=== PATIENT | female | born 1955 | race Caucasian/White ===

== ENCOUNTER → 2016-12-05 | Outpatient (CLI) | payer BC ==
[~2016-12-05] MED LIST: ALBU18002 INH; ALBUTEROL NEB NEB; AMINOPHYLLINE 25 MG/ML 20ML VIAL IV ONE; ANTICRE6; ASPEC81 PO; ATOR10TA88 PO; BCTCR/30 EXT; CLON0.5T3 PO; CLR/5 PO; GLC/500 PO; HYDR-5688 PO; INFUSION IV; LEVA45AE INH; MOME6000 NAE; MONT1TAB3 PO; NAPR1TAB9 PO; OMEP40CA PO; ONDA4TAB46 PO; QVRINH80 INH; REGADENOSON 0.4 MG/5 ML SYR ONE; SYMIN160 INH; [UNRECOGNIZED DRUG - OTHER] IV; [UNRECOGNIZED DRUG - OTHER] NAE
--- NOTE | 2016-12-06 09:52 | MYOCARDIAL PERFUSION SCAN ---
ONE-DAY NUCLEAR MEDICINE TECHNETIUM-99M CARDIOLITE MYOCARDIAL PERFUSION SCAN CLINICAL HISTORY: The patient has an abnormal baseline EKG. This stress test is being performed as a preoperative evaluation. COMPARISON: None. TECHNIQUE: For the stress portion of the study, 32.8 mCi of Technetium-99m Cardiolite IV was injected at 9:45 a.m. on 12/05/2015. Thirty minutes following the injection, imaging of the heart was performed in multiple projection. For the rest portion of the study, 10.6 mCi of Technetium-99m Cardiolite was injected IV at 7:45 a.m. One hour following the injection, imaging of the heart was performed in the same projections. For the stress portion of the study, 0.4 mg of Lexiscan was injected intravenously as per protocol. The patient tolerated the procedure well. She did receive 125 mg of intravenous aminophylline to reverse her complaints of a headache. There were no EKG changes. The patient remained hemodynamically stable throughout the study. FINDINGS: The short axis, vertical long axis, and horizontal long axis images were reviewed in detail. There is normal myocardial perfusion at both stress and rest, thus excluding a prior myocardial infarction or a stress induced myocardial ischemia. The left ventricle demonstrates normal systolic function without wall motion abnormalities. An estimated left ventricular ejection fraction is 70%. CONCLUSIONS: 1. No scintigraphic evidence of a myocardial infarction or myocardial ischemia. 2. No Lexiscan induced chest pain. 3. No EKG changes. 4. Normal left ventricular systolic function with an ejection fraction of 70% and no wall motion abnormalities.
== END | disposition home or self-care (01) ==
LOC: C.NUCL 07:01
PROVIDERS: ATTEND Internal Medicine Cardiovascular Disease
DX: Z01.818 Encounter for other preprocedural examination (principal)

== ENCOUNTER 2016-12-10 06:33 | Inpatient (IN) | payer BC ==
[2016-11-13 14:42] VITALS: BMI 24.0
--- NOTE | 2016-11-13 15:38 | PAT Medication Instructions ---
Service Date Nov 13, 2016. Current Home Medication List Albuterol Sulfate (Proair Respiclick), 2 PUFF INH Q4 PRN for SOB/Wheezing Atorvastatin (Lipitor), 10 MG PO QAM Beclomethasone Dip (Qvar), 2 PUFF INH BID PRN for PRN Budesonide/Formoterol Fumarate (Symbicort 160/4.5 Inhaler ), 2 PUFFS INH BID Clonazepam (Klonopin), 0.25 MG PO UD PRN for VERTIGO Desloratadine (Clarinex), 10 MG PO QAM Levalbuterol Tartrate (Levalbuterol Tartrate Hfa), 2 PUFF INH Q4 PRN for SOB/ Wheezing Metformin Hcl (Glucophage), 500 MG PO BID Mometasone Furoate (Nasal) (Mometasone Furoate), 2 SPRAY BRITNEY QAM Montelukast Sodium (Singulair), 10 MG PO QAM Mupirocin 2% (Bactroban 2%), 1 APPLN EXT UD Naproxen (Aleve), 220 MG PO Q12 Omeprazole (Prilosec), 40 MG PO QAM Ondansetron Hcl (Zofran), 4 MG PO Q4 PRN for Nausea [Albuterol Neb], 1 DOSE NEB Q4 PRN for SOB/Wheezing [Antibiotic] [C-Mariza Geranium Oil], 5 DROP BRITNEY BID [Imuno G Infusion], 1 DOSE IV Q4WK Medication Instructions For Your Scheduled Surgery - Check with surgeon for instructions: Naproxen (Aleve), 220 MG PO Q12 - Check with surgeon/prescribing doctor for instructions: [Imuno G Infusion], 1 DOSE IV Q4WK - Hold the following medications 24 hours prior to surgery: Mupirocin 2% (Bactroban 2%), 1 APPLN EXT UD - Hold the following medications 48 hours prior to surgery: Metformin Hcl (Glucophage), 500 MG PO BID - Hold the following medications the morning of surgery: Montelukast Sodium (Singulair), 10 MG PO QAM Desloratadine (Clarinex), 10 MG PO QAM - Take the following medications the morning of surgery with a sip of water: [Albuterol Neb], 1 DOSE NEB Q4 PRN for SOB/Wheezing Ondansetron Hcl (Zofran), 4 MG PO Q4 PRN for Nausea Omeprazole (Prilosec), 40 MG PO QAM Mometasone Furoate (Nasal) (Mometasone Furoate), 2 SPRAY BRITNEY QAM Levalbuterol Tartrate (Levalbuterol Tartrate Hfa), 2 PUFF INH Q4 PRN for SOB/ Wheezing Clonazepam (Klonopin), 0.25 MG PO UD PRN for VERTIGO Budesonide/Formoterol Fumarate (Symbicort 160/4.5 Inhaler ), 2 PUFFS INH BID Beclomethasone Dip (Qvar), 2 PUFF INH BID PRN for PRN Atorvastatin (Lipitor), 10 MG PO QAM Albuterol Sulfate (Proair Respiclick), 2 PUFF INH Q4 PRN for SOB/Wheezing ( bring with you to hospital morning of surgery) [C-Mariza Geranium Oil], 5 DROP BRITNEY BID - Take the following medications as scheduled the night before surgery: [Albuterol Neb], 1 DOSE NEB Q4 PRN for SOB/Wheezing Ondansetron Hcl (Zofran), 4 MG PO Q4 PRN for Nausea Levalbuterol Tartrate (Levalbuterol Tartrate Hfa), 2 PUFF INH Q4 PRN for SOB/ Wheezing Clonazepam (Klonopin), 0.25 MG PO UD PRN for VERTIGO Budesonide/Formoterol Fumarate (Symbicort 160/4.5 Inhaler ), 2 PUFFS INH BID Beclomethasone Dip (Qvar), 2 PUFF INH BID PRN for PRN Albuterol Sulfate (Proair Respiclick), 2 PUFF INH Q4 PRN for SOB/Wheezing [C-Mariza Geranium Oil], 5 DROP BRITNEY BID If you have any questions please call us at [phone] (Lamar Moise PA-C) or [phone] or [phone]
[2016-11-13 16:38] LABS: MANUAL MICROSCOPIC REQUIRED? NO; REVIEW REQ? NO; URINE APPEARANCE CLEAR (CLEAR); URINE BILIRUBIN NEG (NEG); URINE COLOR YELLOW; URINE NITRITE NEG (NEG); URINE PH 5.5 (4.5-7.5); UROBILINOGEN NEG (NEG); ZZUR CULT IF INDIC CLEAN CATCH NO
--- NOTE | 2016-11-13 16:40 | DIAGNOSTIC IMAGING REPORT ---
CHEST PREADMISSION(PA/LAT) CLINICAL HISTORY: Preoperative evaluation. COMPARISON STUDY: No previous studies for comparison. FINDINGS: Lung volumes are normal. Lungs are clear. There is no pneumothorax or pleural effusion. Cardiac size is normal. Mediastinal contours are normal. There is no evidence of pulmonary edema. There are cholecystectomy clips. Incidental note is made of a healed left clavicular fracture. IMPRESSION: No acute cardiopulmonary findings. Electronically signed by: Juan Pablo Brambila M.D. 11/13/2016 4:39 PM
[2016-11-13 16:50] LABS: PARTIAL THROMBOPLASTIN RATIO 1.1; PROTHROMBIN TIME (PATIENT) 10.9 SECONDS (9.0-12.0)
[2016-11-14 06:00] LABS: ESTIMATED AVERAGE GLUCOSE 128 mg/dl; HA1C FLAG Normal (Normal)
--- NOTE | 2016-12-07 15:07 | HISTORY & PHYSICAL EXAMINATION ---
DATE OF ADMISSION: 12/10/2016 CHIEF COMPLAINT: Left hip pain. HISTORY OF PRESENT ILLNESS: Renetta is a 61-year-old female with a multiple-year history of pain in her left hip. The patient rates her pain an 8/10. She has pain with her daily activities. She has limited standing and walking tolerance. Pain is worse with weightbearing. The patient has had injections and exercise program without relief. She has failed conservative treatment and is scheduled for left hip replacement. PAST MEDICAL HISTORY: Hypertension, hypercholesterolemia, Meniere's disease, asthma, chronic sinusitis, immunodeficiency disorder, IGG, diabetes. She denies heart disease or DVT. PAST SURGICAL HISTORY: Bunionectomy, cochlear implant, sinus usual reconstruction. Lymphadenectomy, hysterectomy, right knee surgery, cholecystectomy, , ORIF tib-fib, and tonsillectomy. SOCIAL HISTORY: The patient denies alcohol or tobacco use. She lives in a single story home. She is and retired. FAMILY HISTORY: Negative for DVT. MEDICATIONS: Geranium oil 5 drops nasally twice daily, clonazepam 0.5 mg 1/2 tablet, Zofran 4 mg p.r.n., Mupirocin 2% ointment nostrils daily, atorvastatin 10 mg daily, metformin 500 mg 2 times daily, immunoglobulin 4 fusions q. 4 weeks, montelukast 10 mg daily, loratadine 5 mg, Symbicort 160/4.5 two puffs daily, omeprazole 40 mg, levalbuterol 0.63 mg, QVAR 40 mcg, Xopenex HFA 45 mcg, Aleve p.r.n. ALLERGIES: DEMEROL, NUBAIN, PERCOCET, TRAMADOL, MACROBID, BACTRIM. REVIEW OF SYSTEMS: See HPI. Ten other systems reviewed. Also, positive for current sinusitis being treated with antibiotic. Ten other systems reviewed, all negative. PHYSICAL EXAMINATION: VITAL SIGNS: Height 5 foot 8, weight 158 pounds, BMI is 24. GENERAL: This is a well-developed, well-nourished female who is alert and oriented x3. Mood and affect are appropriate. HEAD, EYES, EARS, NOSE, AND THROAT: Normocephalic, atraumatic. Mucous membranes are moist and intact. NECK: Supple without lymphadenopathy. HEART: Regular rate and rhythm without murmurs, rubs or gallops. LUNGS: Clear to auscultation without wheezes or rhonchi. ABDOMEN: Soft and nontender. Bowel sounds are equal and active. EXTREMITIES: No ecchymosis, redness or warmth. Thigh and calf are soft and nontender. Log roll of the hip reproduces pain in the groin. She is neurovascularly intact with +5/5 strength. X-RAY EXAMINATION: AP and lateral views show joint space narrowing and osteophyte formation. IMPRESSION: Degenerative joint disease, left hip. PLAN: The patient will be admitted for a left total hip arthroplasty. We will plan on aspirin for DVT prophylaxis. PCP is Dr. Garcia. She is having [facility] for home physical therapy.
[2016-12-10] VITALS (10 sets, daily range): BP systolic 110–178; BP diastolic 58–89; PULSE 56–70; TEMP 36.2–36.6; O2SAT 92–100; Ht 172.7 cm; Wt 71.8 kg
[~2016-12-10] VITALS: Ht 172.7 cm; Wt 71.8 kg
[2016-12-10] MEDS: TRANEXAMIC ACID INJ 1,000 MG in SODIUM CHLORIDE 0.9% 100ML 100 ML IV SCH ×2 (06:00→06:30)
[~2016-12-10 06:33] MED LIST changes: -AMINOPHYLLINE 25 MG/ML 20ML VIAL IV ONE; -ASPEC81 PO; +BUPIVACAINE 0.5 % 5 MG/1 ML PF 10ML VIAL ONE; +CEFAZOLIN 2000 MG/60 ML D5W 60 ML IV SCH; +CeleBREX 200 MG CAP PO SCH; +DEXAMETHASONE 4 MG TAB PO SCH; +FAMOTIDINE 20 MG TAB PO SCH; +FENTANYL CITRATE INJ 50 MCG/1 ML 2 ML VIAL ONE; +GABAPENTIN 300 MG CAP PO SCH; -HYDR-5688 PO; +HYDROCODONE/ACETAMOPHEN 5/325MG TAB PO SCH; +LACTATED RINGER'S 1000ML IV SCH; +LACTATED RINGER'S 500 ML IV SCH; +LIDOCAINE HCL 2% 2 ML VIAL (20MG/ML) ONE; +METOCLOPRAMIDE HCL 10 MG TAB PO SCH; +MIDAZOLAM HCL 1 MG/ML 2ML VIAL ONE; +POLYMYXIN B SULFATE 100,000 UNITS in NSS 100ML IR SCH; +PROPOFOL IV EMULSION 10 MG/ML 20 ML VIAL IV ONE; -REGADENOSON 0.4 MG/5 ML SYR ONE; +ROCURONIUM BROMIDE 10 MG/ML 5 ML VIAL ONE; +ROPIVACAINE 5MG/ML 30 ML 150 MG, BUPIVACAINE/EPINEPHR 0.5% MPF 30 ML, KETOROLAC TROMETH... INFIL SCH; +SCOPOLAMINE 1.5 MG TDSY TD SCH; +SUCCINYLCHOLINE CHLORIDE 20 MG/ML 10 ML VIAL IV ONE; +VANCOMYCIN INJ 400 MG in NSS 100ML IR SCH
[2016-12-10] MEDS ORDERED: ORTHO JOINT ANESTHETIC ONE (06:56)
--- NOTE | 2016-12-10 06:59 | History & Physical Bridge Note ---
H&P Re-Evaluation Bridge Note: I have examined the patient, reviewed the History & Physical and in the interval since the performance of the History & Physical I have noted the following changes of clinical significance: No changes noted
[2016-12-10] MEDS ORDERED: ONDANSETRON INJ 2 MG/ML 2 ML VIAL ONE ×2 (08:39→08:46)
[2016-12-10] MEDS ORDERED: ATROPINE SULFATE 0.1 MG/ML 5ML SYR IV PRN (09:00)
[2016-12-10] MEDS ORDERED: ONDANSETRON INJ 2 MG/ML 2 ML VIAL IV PRN ×2 (09:00→10:00)
[2016-12-10] MEDS ORDERED: EpHEDrine SULFATE INJ 50 MG/ML AMP IV PRN (09:00)
[2016-12-10] MEDS ORDERED: HYDROmorphone INJ 1 MG/ML SYR IV PRN (09:00)
[2016-12-10] MEDS ORDERED: LABETALOL HCL IV 5 MG/ML 20ML IV PRN (09:00)
[2016-12-10] MEDS ORDERED: FENTANYL CITRATE INJ 50 MCG/1 ML 2 ML VIAL IV PRN (09:00)
[2016-12-10] MEDS ORDERED: POVIDONE-IODINE OP SOLN 30 ML BTL TOP ONE (09:40)
[2016-12-10] MEDS ORDERED: BACITRACIN 50000 UNIT VIAL IR ONE (09:40)
--- NOTE | 2016-12-10 09:47 | [facility] Post Operative Brief Note ---
Immediate Operative Summary Operative Date Dec 10, 2016. Pre-Operative Diagnosis Left Hip Degenerative Joint Disease Post-Operative Diagnosis Left Hip Degenerative Joint Disease Procedure(s) Performed Left Total Hip Arthroplasty Uncemented - Direct Anterior Approach Surgeon Dr. Dain Green Flue Dust Laborer Surgeon(s) Nicolas Wells PA-C Estimated Blood Loss 50ML Findings djd Specimens A. Left Femoral Head Complication(s) None Disposition Recovery Room / PACU
[2016-12-10] MEDS ORDERED: BISACODYL 10 MG SUPP PR PRN (10:00)
[2016-12-10] MEDS ORDERED: CLONAZEPAM 0.5 MG TAB PO PRN (10:00)
[2016-12-10] MEDS ORDERED: BECLOMETHASONE DIP HFA 80 MCG 8.7G INH INH PRN (10:00)
[2016-12-10] MEDS ORDERED: ALBUTEROL HFA INHALER 8.5 GM INH PRN (10:00)
[2016-12-10] MEDS ORDERED: MAGNESIUM HYDROXIDE SUSP 30 ML UDC PO PRN (10:00)
[2016-12-10] MEDS ORDERED: LEValbuterol HFA 15GM INHALER INH PRN (10:00)
[2016-12-10] MEDS ORDERED: DiphenhydrAMINE HCL 50 MG/ML VIAL IV PRN (10:00)
[2016-12-10] MEDS ORDERED: ALUMINUM/MAGNESIUM/SIMETH (MAALOX MAX) 30 ML UDC PO PRN (10:00)
[2016-12-10] MEDS ORDERED: ZOLPIDEM TARTRATE 5 MG TAB PO PRN (10:00)
[2016-12-10] MEDS ORDERED: METOCLOPRAMIDE HCL INJ 5 MG/ML 2 ML VIAL IV PRN (10:00)
[2016-12-10] MEDS ORDERED: SOD PHOSPHATE/SOD BIPHOSPHATE ENEMA 132 ML BTL PR PRN (10:00)
--- NOTE | 2016-12-10 10:41 | DIAGNOSTIC IMAGING REPORT ---
LEFT PELVIS/UNILATERAL HIP 1 VIEW CLINICAL HISTORY: Degenerative arthritis postoperative study COMPARISON STUDY: No previous studies for comparison. FINDINGS: There are postsurgical changes of a total left hip arthroplasty. The acetabular and femoral components appear well seated. Overlying surgical drain is evident. There is air in the soft tissues consistent with recent surgery IMPRESSION: Postsurgical changes of a total left hip arthroplasty. Electronically signed by: Alfonzo Vega M.D. 12/10/2016 10:39 AM Dictated Date/Time: 12/10/2016 10:38 AM
[2016-12-10] MEDS ORDERED: PHARMACY GLYCEMIC MGMT CONSULT PRN (10:43)
--- NOTE | 2016-12-10 12:12 | DIAGNOSTIC IMAGING REPORT ---
INTRAOPERATIVE RADIOGRAPH CLINICAL HISTORY: Left hip arthroplasty. Fluoroscopy time: 13 seconds. FINDINGS: A single spot fluoroscopic view of the left hip from an arthroplasty procedure is presented. A bipolar left hip arthroplasty is in near anatomic alignment. There is no evidence of fracture on this fluoroscopic image. IMPRESSION: Intraoperative image from a left hip arthroplasty procedure as above. Electronically signed by: Elia Nieto M.D. 12/10/2016 12:10 PM Dictated Date/Time: 12/10/2016 12:09 PM
[2016-12-10] MEDS: SODIUM CHLORIDE 0.9% 1000ML 1,000 ML IV SCH ×2 (13:04→20:11)
[2016-12-10 13:15] LABS: CREATININE 0.74 mg/dl (0.60-1.20)
[2016-12-10] MEDS: KETOROLAC TROMETHAMINE 30 MG/ML VIAL IV. SCH ×2 (14:00→20:11)
--- NOTE | 2016-12-10 14:35 | Anesthesiology Progress Note ---
Anesthesia Post Op Note Date & Time Dec 10, 2016 at 14:33 Vital Signs Pain Intensity: 0.0 Vital Signs Past 12 Hours Date Time Temp Pulse Resp B/P Pulse Ox O2 Delivery O2 Flow Rate FiO2 12/10/16 13:49 57 14 111/71 98 Nasal Cannula 2.0 12/10/16 12:49 63 16 164/89 98 Nasal Cannula 2.0 12/10/16 12:20 65 16 159/70 98 Nasal Cannula 2.0 12/10/16 11:50 Nasal Cannula 2.0 12/10/16 11:50 36.2 64 18 150/74 99 Nasal Cannula 2.0 12/10/16 11:50 99 Nasal Cannula 2.0 12/10/16 11:40 57 14 139/66 100 Nasal Cannula 2 12/10/16 11:25 36.0 64 16 138/68 100 Nasal Cannula 2 12/10/16 11:15 56 14 142/68 100 Nasal Cannula 2 12/10/16 11:05 62 14 142/70 100 Nasal Cannula 2 12/10/16 10:55 61 17 140/65 100 Nasal Cannula 2 12/10/16 10:45 60 15 150/71 99 Nasal Cannula 2 12/10/16 10:35 60 17 142/71 99 Nasal Cannula 2 12/10/16 10:25 62 18 141/64 100 Nasal Cannula 2 12/10/16 10:15 36.3 77 20 132/61 98 Nasal Cannula 2 12/10/16 07:03 36.6 70 20 178/86 100 Room Air Notes Mental Status: alert / awake / arousable, participated in evaluation Pt Amnestic to Procedure: Yes Nausea / Vomiting: adequately controlled Pain: adequately controlled Airway Patency, RR, SpO2: stable & adequate BP & HR: stable & adequate Hydration State: stable & adequate Neuraxial Anesthesia: was administered, sensory block is resolving Anesthetic Complications: no major complications apparent
[2016-12-10] MEDS: HYDROCODONE/ACETAMOPHEN 5/325MG TAB PO PRN ×2 (14:46→21:01)
[2016-12-10] MEDS: CEFAZOLIN IV 2,000 MG in DEXTROSE 5% 50ML 50 ML IV SCH ×2 (15:06→23:57)
[2016-12-10] MEDS: CHECK SCOPOLAMINE PATCH PLACEMENT SCH (15:06)
--- NOTE | 2016-12-10 15:07 | Pharmacy Progress Note ---
Glycemic Control Intl Consult Date of Service Dec 10, 2016. Scope Glycemic Pharmacist consulted by Dr. Green on 12/10/16 for glycemic control and to write orders per [facility] inpatient glycemic control protocol Objective Weight (Kilograms): 71.800 Accuchecks BSG (last 24hrs): Test 12/10/16 06:49 12/10/16 10:18 12/10/16 12:07 Bedside Glucose 90 mg/dl (70-90) 141 mg/dl (70-90) 142 mg/dl (70-90) Laboratory Data (last 24hrs) Test 12/10/16 12:35 Creatinine 0.74 mg/dl HbA1c 6.1% - 11/13/16 Recent Pertinent Medications Outpatient Anti-diabetic Regimen: * metformin 500 mg BID * A1c = 6.1 % 11/13/17 Risk Factors for Insulin Resistance: * Steroids: dexamethasone 8 mg PO x 1 dose pre-op * Recent Surgery: POD #0 left hip arthroplasty * Diet: type 2 diabetic diet Assessment & Plan ASSESSMENT: * ADA & AACE recommend a goal blood sugar range 140-180 mg/dl for the majority of critically ill & non-critically ill patients. However, more stringent targets may be selected in individual cases. * 61 year old female s/p left hip arthroplasty with history of type II diabetes. BSG is currently within desired goal range. Will start patient on correctional/nutritional insulin due to potential for stress induced hyperglycemia. PLAN FOR INPATIENT GLYCEMIC CONTROL: * Metformin (home med) is temporarily on hold due to post-op status. Will resume when patient tolerating oral diet. * No basal insulin ordered at this time. * Correctional Insulin with NOVOLOG ACHS * Goal Range: Low 140 mg/dL - High 180 mg/dL * Correction Factor: 35 mg/dL/unit * Nutritional / Prandial insulin per carb ratio of 1 unit per 12 grams CHO consumed * Please note that the plan above was derived based on current level of insulin resistance and hospital stress. These recommendations are appropriate for inpatient admission only. Plan of care upon discharge will need to be reassessed to avoid potential outpatient hypo/hyperglycemia. Thank you.
[2016-12-10] MEDS ORDERED: TRANEXAMIC ACID INJ 1,000 MG in SODIUM CHLORIDE 0.9% 100ML 100 ML IV SCH (16:15)
[2016-12-10] MEDS: INSULIN ASPART 100 UNITS/ML 3 ML PEN SC SCH ×2 (18:03→20:42)
--- NOTE | 2016-12-10 19:23 | OPERATIVE REPORT ---
DATE OF OPERATION: 12/10/2016 PREOPERATIVE DIAGNOSIS: Degenerative arthritis, left hip. POSTOPERATIVE DIAGNOSIS: Same. PROCEDURE: Left total hip replacement. SURGEON: Dr. Green. PLATING MACHINE OPERATOR: BRUCE Araujo. ANESTHESIA: Spinal. BLOOD LOSS: 50 mL. REPLACEMENT FLUIDS: 1800 mL of crystalloid. DRAINS: Hemovac x2. CULTURES: None. COMPLICATIONS: None. COMPONENTS USED: Ruano \T\ Nephew Anthology Hip System: Acetabulum size 48, femur size 5 high offset, femoral head 0 neck length. NOTE: BRUCE Araujo was present and assisted throughout due to the complicated nature of this case. He helped with preparation and setup, first assisted throughout and personally closed the capsule, subcutaneous and skin layers and applied the postoperative dressing. DESCRIPTION: Following satisfactory spinal, the patient was supine. The right leg was placed in the well-leg anderson and the left leg in the traction device. The leg was prepared with ChloraPrep and draped sterilely. Following a surgical time-out, an anterior approach in the interval between the sartorius and tensor muscles was completed, the circumflex femoral vessels were identified and ligated. An anterior capsulotomy was performed, exposing a severely arthritic femoral neck and head. The femoral neck and head were trimmed and removed. The acetabular self-retraining retractor was placed. Under fluoroscopic guidance, the acetabulum was reamed and the 48 shell was impacted into an anatomic position and secured with a dome screw. Local anesthetic was placed and after irrigation, the poly liner was placed. The femur was then placed into a position of external rotation, extension and adduction. The femoral canal was sounded and prepared up to the size 5. A trial reduction using fluoroscopy showed good fit and fill of the proximal canal and moravian of leg lengths using anatomic landmarks. The hip was dislocated. The trial component was removed. Local anesthetic was placed and after irrigation, the final implant was placed. The hip was irrigated and reduced. A Betadine soak was performed. After 5 minutes, the Betadine was irrigated. The capsule was closed with 1 Vicryl interrupted. A drain was placed. The muscle fascia was closed with a running suture of 1 Vicryl, the subcutaneous tissues with 2-0 Vicryl, the skin with a running subcuticular stitch of 3-0 V-Loc. Dermabond and a dry dressing were applied. The patient was returned to her bed in stable condition. I attest to the content of the Intraoperative Record and any orders documented therein. Any exceptio ns are noted below.
[2016-12-10] MEDS: ASPIRIN 81 MG ECTAB PO SCH (20:41)
[2016-12-10] MEDS: BUDESONIDE/FORMOTEROL FUMARATE 160/4.5 60 PUFFS/INHALER INH SCH (20:42)
[2016-12-10] MEDS ORDERED: SENNA 8.6 MG TAB PO SCH (21:00)
[2016-12-11] MEDS: CHECK SCOPOLAMINE PATCH PLACEMENT SCH ×2 (00:02→07:01)
[2016-12-11] MEDS: KETOROLAC TROMETHAMINE 30 MG/ML VIAL IV. SCH ×3 (01:53→14:00)
[2016-12-11 03:00] VITALS: BP 102/61; PULSE 57; TEMP 36.7; O2SAT 96
[2016-12-11] MEDS: SODIUM CHLORIDE 0.9% 1000ML 1,000 ML IV SCH (05:26)
[2016-12-11] MEDS: HYDROCODONE/ACETAMOPHEN 5/325MG TAB PO PRN ×2 (05:30→10:36)
[2016-12-11 07:01] LABS: BASO % 0.1 %; BASO ABS # 0.01 K/uL (0-0.2); COMPLETE YES; HEMATOCRIT 32.1 % (37-47); IG% 0.3 %; LYMPH % 11.5 %; LYMPH ABS # 0.77 K/uL (1.2-3.4); MEAN CELL VOLUME 86.5 fL (80-100); MEAN CORPUSCULAR HEMOGLOBIN 28.8 pg (25-34); MEAN CORPUSCULAR HGB CONC 33.3 g/dl (32-36); MEAN PLATELET VOLUME 10.1 fL (7.4-10.4); MONO % 9.3 %; NEUT % 78.8 %; PLATELET COUNT 237 K/uL (130-400); RED BLOOD COUNT 3.71 M/uL (4.2-5.4); WHITE BLOOD COUNT 6.69 K/uL (4.8-10.8)
[2016-12-11 07:17] VITALS: BP 122/72; PULSE 50; TEMP 36.8; O2SAT 95
[2016-12-11 07:38] LABS: BUN/CREATININE RATIO 16.9 (10-20); CALCIUM 8.6 mg/dl (8.5-10.1); CREATININE 0.79 mg/dl (0.60-1.20); POTASSIUM 3.7 mmol/L (3.5-5.1)
--- NOTE | 2016-12-11 08:03 | Anesthesiology Progress Note ---
Anesthesia Post Op Note Date & Time Dec 11, 2016 at 08:02 Vital Signs Pain Intensity: 2.0 Vital Signs Past 12 Hours Date Time Temp Pulse Resp B/P Pulse Ox O2 Delivery O2 Flow Rate FiO2 12/11/16 07:17 36.8 50 17 122/72 95 Room Air 12/11/16 07:12 Room Air 12/11/16 03:00 36.7 57 16 102/61 96 Room Air 12/10/16 23:10 36.5 56 16 110/58 96 Room Air Notes Mental Status: alert / awake / arousable, participated in evaluation Pt Amnestic to Procedure: Yes Nausea / Vomiting: adequately controlled Pain: adequately controlled Airway Patency, RR, SpO2: stable & adequate BP & HR: stable & adequate Hydration State: stable & adequate Neuraxial Anesthesia: sensory block resolved Anesthetic Complications: no major complications apparent
--- NOTE | 2016-12-11 08:16 | Orthopedic Progress Note ---
Orthopedic Progress Note Date of Service Dec 11, 2016. Subjective Post OP Day: 1 Reports: feeling well, Denies: SOB, calf pain, chest pain, light headedness, nausea / vomiting Objective calves soft nontender, N/V intact, hip located, dressing C/D/I, A&O x3, toes mobile, hemovac drainage (100/30) Date Time Temp Pulse Resp B/P Pulse Ox O2 Delivery O2 Flow Rate FiO2 12/11/16 07:17 36.8 50 17 122/72 95 Room Air 12/11/16 07:12 Room Air 12/11/16 03:00 36.7 57 16 102/61 96 Room Air 12/10/16 23:10 36.5 56 16 110/58 96 Room Air 12/10/16 19:47 36.3 58 18 117/71 93 Room Air 12/10/16 19:15 Room Air 12/10/16 15:42 36.3 59 18 133/75 94 Room Air 12/10/16 15:34 92 Room Air 12/10/16 14:50 36.4 63 16 135/82 98 Nasal Cannula 2.0 12/10/16 13:49 57 14 111/71 98 Nasal Cannula 2.0 12/10/16 12:49 63 16 164/89 98 Nasal Cannula 2.0 12/10/16 12:20 65 16 159/70 98 Nasal Cannula 2.0 12/10/16 11:50 Nasal Cannula 2.0 12/10/16 11:50 36.2 64 18 150/74 99 Nasal Cannula 2.0 12/10/16 11:50 99 Nasal Cannula 2.0 12/10/16 11:40 57 14 139/66 100 Nasal Cannula 2 12/10/16 11:25 36.0 64 16 138/68 100 Nasal Cannula 2 12/10/16 11:15 56 14 142/68 100 Nasal Cannula 2 12/10/16 11:05 62 14 142/70 100 Nasal Cannula 2 12/10/16 10:55 61 17 140/65 100 Nasal Cannula 2 12/10/16 10:45 60 15 150/71 99 Nasal Cannula 2 12/10/16 10:35 60 17 142/71 99 Nasal Cannula 2 12/10/16 10:25 62 18 141/64 100 Nasal Cannula 2 12/10/16 10:15 36.3 77 20 132/61 98 Nasal Cannula 2 Laboratory Results 24 Hours: Test 12/11/16 06:26 White Blood Count 6.69 K/uL Red Blood Count 3.71 M/uL Hemoglobin 10.7 g/dL Hematocrit 32.1 % Mean Corpuscular Volume 86.5 fL Mean Corpuscular Hemoglobin 28.8 pg Mean Corpuscular Hemoglobin Concent 33.3 g/dl Platelet Count 237 K/uL Mean Platelet Volume 10.1 fL Neutrophils (%) (Auto) 78.8 % Lymphocytes (%) (Auto) 11.5 % Monocytes (%) (Auto) 9.3 % Eosinophils (%) (Auto) 0.0 % Basophils (%) (Auto) 0.1 % Neutrophils # (Auto) 5.27 K/uL Lymphocytes # (Auto) 0.77 K/uL Monocytes # (Auto) 0.62 K/uL Eosinophils # (Auto) 0.00 K/uL Basophils # (Auto) 0.01 K/uL Assessment & Plan Assessment: POD#1 SP LEFT JUSTIN, DA Inhouse Planning Pain Management: Celebrex, PO Tylenol, Oxy IR DVT Prophylaxis: TEDs, SCDs, ASA Discharge Planning Discharge Planning: home with home health ([facility])
--- NOTE | 2016-12-11 08:17 | Discharge Instructions ---
Discharge Instructions Admission Reason for Admission: Left Degenerative Arthritis Discharge Discharge Diagnosis / Problem: SP LEFT JUSTIN, DA Discharge Goals Goal(s): Decrease discomfort, Improve function, Increase independence Activity Recommendations Activity Limitations: per Instructions/Follow-up section . Instructions / Follow-Up Instructions / Follow-Up ACTIVITY RECOMMENDATIONS: SELF CARE INSTRUCTIONS AFTER TOTAL HIP REPLACEMENT : Direct Anterior Approach Until the incision and soft tissues around your hip have healed, there is a possibility that the hip prosthesis could dislocate. A. Hip flexion ( Up & Down out of chair or steps ) may be difficult. This is normal. B. Numbness in front of the thigh is also normal for a few weeks. C. Use hand rails when walking on stairs. D. Wear low heeled shoes with non-slip soles. E. Be sure that your floors are free of things that could trip you - throw rugs , electrical cords, small objects. Avoid wet and waxed floors, especially with crutches and canes. F. Try to walk several times a day with rest periods between. G. Continue with all the exercises taught to you in the hospital. Again, make walking a part of your daily routine. SPECIAL CARE INSTRUCTIONS: VERY IMPORTANT TO READ AND REVIEW A. You may still be at risk for phlebitis and blood clots. 1. Wear surgical stockings (ROGELIO hose) for 2 weeks after surgery to improve circulation and reduce swelling. 2. Take Aspirin 81mg twice daily for 4 weeks or as directed by your doctor. This is your blood thinner. 3. High risk patients may be prescribed a stronger blood thinner if necessary. 4. If you are on Coumadin normally, your family doctor/chief nurse should monitor your blood work. Expect a phone call the day of or the day after bloodwork is drawn to adjust your dosage. B. You must take antibiotics before having dental work, bladder, bowel and other surgery. Your doctor will provide you with a permanent card to carry describing precautions. C. Call [facility] if you have a fever, redness or swelling around the incision, cloudy drainage from incision, or sudden increase in pain in your hip, not relieved by your regular pain medication. D. Please call the office at if you have any concerns or questions about your operation or recovery. * YOU MAY SHOWER, NO TUB BATHS UNTIL CLEARED BY YOUR DOCTOR. - Keep an extra close eye on the top portion of your incision. Be sure to keep clean & dry. * WEAR ROGELIO HOSE 20 HOURS PER DAY FOR 2 WEEKS. * YOU MAY PROGRESS FROM A WALKER, TO A CANE, TO INDEPENDENT AT YOUR OWN PACE. * MOST PATIENTS WILL HAVE HOME NURSING FOR THERAPY. IF YOU DECIDE TO DO OUTPATIENT PHYSICAL THERAPY, PLEASE SCHEDULE THIS 3 TIMES PER WEEK. * DERMABOND Prineo- This is a mesh tape dressing that is covered with glue. It should remain in place until the incision is properly healed, usually 10-14 days. This dressing is designed to naturally slough off. You may trim the excess mesh tape as it peels off. Incision may be briefly wet in a shower. Dry immediately by blotting with a clean, dry towel. Do not bath or swim until instructed by your doctor. Do not scratch, rub, or pick at the dressing. Do not apply any topical ointments or lotions until dressing is completely removed and/or instructed by your doctor. There may be a small piece of suture material at one end of your incision. Do not pull or trim this. If it is bothersome or catching on clothing, you may cover it with a band-aid. FOLLOW UP VISIT: If appointment is not already scheduled: Please call [facility] to make a follow-up appointment for 2 weeks after your surgery at . Current Hospital Diet Patient's current hospital diet: Diabetes Type 2 Diet Discharge Diet Recommended Diet: Regular Diet Procedures Procedures Performed: Left Total Hip Arthroplasty Uncemented - Direct Anterior Approach Pending Studies Studies pending at discharge: no Laboratory Results Hemoglobin A1c Test 11/13/16 15:53 Range/Units Estimated Average Glucose 128 mg/dl Hemoglobin A1c 6.1 H 4.5-5.6 % Medical Emergencies . Who to Call and When: Medical Emergencies: If at any time you feel your situation is an emergency, please call 911 immediately. . Non-Emergent Contact Non-Emergency issues call your: Primary Care Provider . "Provider Documentation" section prepared by Bárbara Lawson. VTE Core Measure Inpt VTE Proph given/why not?: Other Anticoagulation, T.E.D. Stockings, SCD's
[2016-12-11] MEDS ORDERED: ONDA4TAB46 PO (08:19)
[2016-12-11] MEDS ORDERED: ASPEC81 PO (08:19)
[2016-12-11] MEDS ORDERED: HYDR-5688 PO (08:19)
[2016-12-11] MEDS: BUDESONIDE/FORMOTEROL FUMARATE 160/4.5 60 PUFFS/INHALER INH SCH (08:26)
[2016-12-11] MEDS: ASPIRIN 81 MG ECTAB PO SCH (08:26)
[2016-12-11] MEDS: INSULIN ASPART 100 UNITS/ML 3 ML PEN SC SCH ×2 (08:40→11:53)
[2016-12-11] MEDS ORDERED: MONTELUKAST SOD 10 MG TAB PO SCH (09:00)
[2016-12-11] MEDS ORDERED: MULTIVITAMIN TAB PO SCH (09:00)
[2016-12-11] MEDS ORDERED: PANTOprazole SOD 40 MG TAB PO SCH (09:00)
[2016-12-11] MEDS ORDERED: FLUTICASONE PROPIONATE NA SPR 16 GM BTL NAE SCH (09:00)
[2016-12-11] MEDS ORDERED: ATORVASTATIN 10 MG TAB PO SCH (09:00)
[2016-12-11 11:08] VITALS: BP 137/70; PULSE 61; TEMP 36.7; O2SAT 97
--- NOTE | 2016-12-12 15:33 | DISCHARGE SUMMARY ---
DISCHARGE DIAGNOSIS: Degenerative joint disease, left hip. SECONDARY DIAGNOSES: Hypertension, hypercholesterolemia, Meniere's disease, asthma, chronic sinusitis, immunodeficiency disorder, IgG, and diabetes mellitus. CONSULTS: None. COMPLICATIONS: None. PROCEDURES: Left total hip arthroplasty performed direct anterior by Dr. Enrique Green on 12/10/2016. BRIEF HISTORY: As dictated in history and physical. HOSPITAL SUMMARY: The patient was admitted on the above date and had the above-noted surgery performed which he tolerated well. On the first postoperative day, she was remaining stable, feeling well and had no complaints. Calves were soft, nontender. Neurovascularly intact. Hip was located. Dressings were clean, dry and intact. Toes were mobile and vital signs were stable and she was afebrile. Hemoglobin was 10.7. She was started on physical therapy protocol and continued on DVT prophylaxis and pain management. She was progressing well with physical therapy, remaining stable and it was felt she could be discharged to home on 12/11/2016. For further review, please see chart. LAB AND X-RAY DATA: As per chart. DISCHARGE INSTRUCTIONS: The patient was discharged to home in satisfactory condition. DIET: Regular. ACTIVITY: Follow JUSTIN instruction sheets for direct anterior approach and follow special care instructions as written. The patient to follow up with Dr. Enrique Green in 2 weeks. The patient to call for an appointment if one has not been made for you. DISCHARGE MEDICATIONS: Aspirin 81 mg p.o. b.i.d., Lawtey 5/325 1-2 tabs p.o. q. 4 hours p.r.n., resume taking albuterol 2 puffs inhaled q. 4 hours, atorvastatin 10 mg p.o. daily, QVAR 2 puffs inhaled b.i.d., Symbicort 160/4.5 two puffs inhaled b.i.d., clonazepam 0.25 mg p.o. as directed p.r.n., Clarinex 10 mg p.o. q. a.m., levalbuterol 2 puffs inhaled q. 4 hours p.r.n., metformin 500 mg p.o. b.i.d., mometasone furoate 2 sprays nasally q. a.m., Singulair 10 mg p.o. q.a.m., Bactroban 2% one application externally as directed, omeprazole 40 mg p.o. q.a.m., albuterol nebulizer 1 dose q. 4 hours p.r.n. [place] geranium oil 5 drops nasally b.i.d., infusion 1 dose IV q. 4 week, Zofran 8 mg p.o. q. 8 hours p.r.n., and stop taking naproxen. MTDD
== END 2016-12-11 14:15 | disposition home health service (06) | DRG 470 ==
LOC: ENRESERVDT → ENRESERVTM → C.ACU 06:33 → C.3E 09:52
PROVIDERS: ADMIT Orthopaedic Surgery; ATTEND Orthopaedic Surgery
PROC: 0SRB04A Replacement of Left Hip Joint with Ceramic on Polyethylene Synthetic Substitute, Uncemented, Open Approach (ICD-10-PCS; principal; 2016-12-10 08:15)
DX: M16.12 Unilateral primary osteoarthritis, left hip (principal); D80.3 Selective deficiency of immunoglobulin G [IgG] subclasses; I10 Essential (primary) hypertension; E78.00 Pure hypercholesterolemia, unspecified; J45.909 Unspecified asthma, uncomplicated; E11.9 Type 2 diabetes mellitus without complications; J32.9 Chronic sinusitis, unspecified; Z79.1 Long term (current) use of non-steroidal anti-inflammatories (NSAID); Z79.51 Long term (current) use of inhaled steroids; Z79.84 Long term (current) use of oral hypoglycemic drugs; Z79.899 Other long term (current) drug therapy

== ENCOUNTER → 2017-04-29 | Outpatient (CLI) | payer BC, OTHER ==
[~2017-04-29] MED LIST changes: -ANTICRE6; +ASPEC81 PO; +ATOR10TA82 PO; -ATOR10TA88 PO; -BUPIVACAINE 0.5 % 5 MG/1 ML PF 10ML VIAL ONE; -CEFAZOLIN 2000 MG/60 ML D5W 60 ML IV SCH; -CeleBREX 200 MG CAP PO SCH; -DEXAMETHASONE 4 MG TAB PO SCH; -FAMOTIDINE 20 MG TAB PO SCH; -FENTANYL CITRATE INJ 50 MCG/1 ML 2 ML VIAL ONE; -GABAPENTIN 300 MG CAP PO SCH; +HYDR-5688 PO; -HYDROCODONE/ACETAMOPHEN 5/325MG TAB PO SCH; -LACTATED RINGER'S 1000ML IV SCH; -LACTATED RINGER'S 500 ML IV SCH; -LIDOCAINE HCL 2% 2 ML VIAL (20MG/ML) ONE; -METOCLOPRAMIDE HCL 10 MG TAB PO SCH; -MIDAZOLAM HCL 1 MG/ML 2ML VIAL ONE; -NAPR1TAB9 PO; -POLYMYXIN B SULFATE 100,000 UNITS in NSS 100ML IR SCH; -PROPOFOL IV EMULSION 10 MG/ML 20 ML VIAL IV ONE; -ROCURONIUM BROMIDE 10 MG/ML 5 ML VIAL ONE; -ROPIVACAINE 5MG/ML 30 ML 150 MG, BUPIVACAINE/EPINEPHR 0.5% MPF 30 ML, KETOROLAC TROMETH... INFIL SCH; -SCOPOLAMINE 1.5 MG TDSY TD SCH; -SUCCINYLCHOLINE CHLORIDE 20 MG/ML 10 ML VIAL IV ONE; -VANCOMYCIN INJ 400 MG in NSS 100ML IR SCH
== END | disposition home or self-care (01) ==
LOC: C.LABMFLN 08:01
PROVIDERS: ATTEND Family Medicine
DX: N39.0 Urinary tract infection, site not specified (principal)

== ENCOUNTER → 2017-06-21 | Outpatient (CLI) | payer BC ==
[~2017-06-21] MED LIST changes: -ATOR10TA82 PO; +ATOR10TA88 PO
== END | disposition home or self-care (01) ==
LOC: C.LABMFLN 09:33
PROVIDERS: ATTEND Family Medicine
DX: R35.0 Frequency of micturition (principal)

== ENCOUNTER 2022-09-07 10:26 | Observation (INO) ==
--- NOTE | 2022-08-07 13:50 | PAT Medication Instructions ---
Medication Instructions Date of Service August 07, 2022 Home Medications Medication Instructions Recorded levalbuterol tartrate 45 2 inh inhalation Q4H PRN shortness 02/14/21 mcg/actuation aerosol inhaler of breath or wheezing #3 Inhalers (Xopenex HFA) desloratadine 5 mg tablet 5 mg PO QAM #90 tabs 09/01/21 losartan 100 mg tablet 100 mg PO QAM #90 tabs 09/06/21 levalbuterol HCl 0.63 mg/3 mL 0.63 mg (3 mL) inhalation Q6H PRN 12/07/21 solution for nebulization cough/wheezing/shortness of breath #180 mL blood sugar diagnostic #100 ea 12/13/21 immun glob G 1 gram/5 30 ml subcut .every two weeks #5 mL 12/20/21 mL(20%)-gly-IgA over 50 mcg/mL subcutaneous soln (Cuvitru) umeclidinium 62.5 mcg-vilanterol 1 inh inhalation DAILY #14 ea 12/20/21 25 mcg/actuation powdr for inhalation (Anoro Ellipta) valacyclovir 500 mg tablet 500 mg PO Q2D #45 tabs 02/13/22 (Valtrex) ondansetron HCl 4 mg tablet 4 mg PO Q6H PRN nausea and 03/26/22 vomiting #20 tabs cyanocobalamin (vitamin B-12) 1,000 mcg PO DAILY #30 tabs 04/19/22 1,000 mcg tablet mometasone 50 mcg/actuation nasal 2 spray intranasal DAILY #51 grams 05/31/22 spray sitagliptin 100 mg-metformin ER 1 tab PO DAILY #90 tabs 05/31/22 1,000 mg tablet,extended [id number] mp (Janumet XR) polysaccharide iron complex 150 mg 150 mg PO DAILY #100 caps 06/03/22 iron capsule (Ferrex) omeprazole 40 mg capsule,delayed 40 mg PO DAILY #90 caps 06/06/22 release atorvastatin 10 mg tablet 10 mg PO QAM #90 tabs 06/25/22 montelukast 10 mg tablet 10 mg PO QAM #90 tabs 06/25/22 chlorthalidone 25 mg tablet 25 mg PO DAILY #45 tabs 07/05/22 levalbuterol tartrate 45 mcg/actuation aerosol inhaler (Xopenex HFA) 2 inh inhalation Q4H PRN lifitegrast 5 % eye drops in a dropperette (Xiidra) 1 drp ophthalmic (eye) BID desloratadine 5 mg tablet 5 mg PO QAM losartan 100 mg tablet 100 mg PO QAM levalbuterol HCl 0.63 mg/3 mL solution for nebulization 0.63 mg (3 mL) inhalation Q6H PRN blood sugar diagnostic immun glob G 1 gram/5 mL(20%)-gly-IgA over 50 mcg/mL subcutaneous soln (Cuvitru) 30 ml subcut tobramycin sulfate 40 mg/mL injection syringe See Rx Instructions .Route .COMPLEX PRN umeclidinium 62.5 mcg-vilanterol 25 mcg/actuation powdr for inhalation (Anoro Ellipta) 1 inh inhalation DAILY valacyclovir 500 mg tablet (Valtrex) 500 mg PO Q2D ondansetron HCl 4 mg tablet 4 mg PO Q6H PRN Lactobacillus rhamnosus GG 10 billion cell capsule (Culturelle) 1 cap PO QAM cyanocobalamin (vitamin B-12) 1,000 mcg tablet 1,000 mcg PO DAILY mupirocin 2 % topical ointment 1 applic topical BID PRN mometasone 50 mcg/actuation nasal spray 2 spray intranasal DAILY sitagliptin 100 mg-metformin ER 1,000 mg tablet,extended [id number] mp (Janumet XR) 1 tab PO DAILY polysaccharide iron complex 150 mg iron capsule (Ferrex) 150 mg PO DAILY omeprazole 40 mg capsule,delayed release 40 mg PO DAILY atorvastatin 10 mg tablet 10 mg PO QAM montelukast 10 mg tablet 10 mg PO QAM chlorthalidone 25 mg tablet 25 mg PO DAILY amoxicillin 875 mg-potassium clavulanate 125 mg tablet 1 tab PO BID budesonide-formoterol HFA 80 mcg-4.5 mcg/actuation aerosol inhaler (Symbicort) 2 puff inhalation BID Continue as directed valacyclovir 500 mg tablet (Valtrex) 500 mg PO Q2D ondansetron HCl 4 mg tablet 4 mg PO Q6H PRN(if needed) ASK your prescriber and surgeon immun glob G 1 gram/5 mL(20%)-gly-IgA over 50 mcg/mL subcutaneous soln (Cuvitru) 30 ml subcut tobramycin sulfate 40 mg/mL injection syringe See Rx Instructions .Route .COMPLEX PRN STOP taking 24 hours before surgery mupirocin 2 % topical ointment 1 applic topical BID PRN DO NOT take the morning of surgery desloratadine 5 mg tablet 5 mg PO QAM losartan 100 mg tablet 100 mg PO QAM Lactobacillus rhamnosus GG 10 billion cell capsule (Culturelle) 1 cap PO QAM cyanocobalamin (vitamin B-12) 1,000 mcg tablet 1,000 mcg PO DAILY sitagliptin 100 mg-metformin ER 1,000 mg tablet,extended [id number] mp (Janumet XR) 1 tab PO DAILY polysaccharide iron complex 150 mg iron capsule (Ferrex) 150 mg PO DAILY montelukast 10 mg tablet 10 mg PO QAM chlorthalidone 25 mg tablet 25 mg PO DAILY Take morning of surgery With a small sip of water, OTHERWISE NOTHING TO EAT OR DRINK AFTER MIDNIGHT: levalbuterol tartrate 45 mcg/actuation aerosol inhaler (Xopenex HFA) 2 inh inhalation Q4H PRN(use if needed; please bring with you to hospital day of surgery if possible) lifitegrast 5 % eye drops in a dropperette (Xiidra) 1 drp ophthalmic (eye) BID levalbuterol HCl 0.63 mg/3 mL solution for nebulization 0.63 mg (3 mL) inhal ation Q6H PRN(if needed) umeclidinium 62.5 mcg-vilanterol 25 mcg/actuation powdr for inhalation (Anoro Ellipta) 1 inh inhalation DAILY mometasone 50 mcg/actuation nasal spray 2 spray intranasal DAILY omeprazole 40 mg capsule,delayed release 40 mg PO DAILY atorvastatin 10 mg tablet 10 mg PO QAM amoxicillin 875 mg-potassium clavulanate 125 mg tablet 1 tab PO BID budesonide-formoterol HFA 80 mcg-4.5 mcg/actuation aerosol inhaler (Symbicort) 2 puff inhalation BID Take evening before surgery levalbuterol tartrate 45 mcg/actuation aerosol inhaler (Xopenex HFA) 2 inh inhalation Q4H PRN(if needed) lifitegrast 5 % eye drops in a dropperette (Xiidra) 1 drp ophthalmic (eye) BID levalbuterol HCl 0.63 mg/3 mL solution for nebulization 0.63 mg (3 mL) inhalation Q6H PRN(if needed) amoxicillin 875 mg-potassium clavulanate 125 mg tablet 1 tab PO BID budesonide-formoterol HFA 80 mcg-4.5 mcg/actuation aerosol inhaler (Symbicort) 2 puff inhalation BID Other Notes If you have any questions please call us at [phone] or [phone] or [phone] or [phone]
--- NOTE | 2022-08-15 11:43 | Anesthesiology Consultation ---
Date of Service August 15, 2022 Assessment & Plan (1) Encounter for pre-operative examination: - COVID screening: Per assessment on 08/15: No known COVID-19 positive contacts or current COVID-19 related symptoms. Travel screen- returned from [place] 08/01. At surgeon discretion if preop Covid testing being done. - S/P Left JUSTIN (12/10/16): SAB at L3/4 (x1 attempt) at [facility]. Per anesthesia report, prior to surgery "Pt c/o nausea.. small clear emesis.. medicated with Zofran.. Pt stated nausea subsided" - [facility] Allergy office visit (08/01/22): Recurrent sinus infections. " Sinus cultures revealed oxacillinsensitive staph aureus and then in 2015 she began to demonstrate Pseudomonas aeruginosa in her sinus cultures, which coincided when she began to have sinus infections that were more constant.. In January 2021.. Sinus culture showed Pseudomonas and was resistant to p.o. antimicrobials and therefore patient was started on cefepime.. Started on tobramycin sinus rinses per ENT. Since she has been using tobramycin sinus rinses, which she uses as needed, she has overall been doing better.. For her current URI/sinus infection, we asked her to continue Augmentin for 7-10day course.. Start nasal saline rinses twice daily.. And mometasone nasal spray twice daily.. Use her nebulizer every 6 hours.. Prescribe Symbicort.. Antibody deficiency.. Continue Cuvitru.. Recent COVID IgG was positive at 81." Per pt, service desk agent aware of upcoming surgery and has discussed with surgeon perioperative abx recommendations. - Check BSG AM DOS - Outpatient joint assessment: Pt currently scheduled for inpatient pathway. If surgeon requests review for outpatient joint pathway, patient is not recommended candidate for outpatient joint program from anesthesia standpoint. Chart Review Chart Review: Acceptable Risk for Surgery and Patient seen in Pre Admission Testing Teaching & Discussion Pre-Anesthesia Teaching/Discussion Notes: Instructed NPO after midnight before surgery,except medications with 15 cc of water. Medication instructions provided according to the PAT guidelines. History Surgery Operation Date: 09/07/22 10:10 Proposed Procedures p Right Total Knee Arthroplasty - Sergio Peña, Height/Weight Height: 5 ft 8 in Weight: 70.9 kg Allergies Allergy/AdvReac Type Severity Reaction Status Date / Time nitrofurantoin Allergy Unknown Rash Verified 08/13/22 10:33 triamterene Allergy Unknown Hives Verified 08/13/22 10:33 acetaminophen [From Percocet] AdvReac Unknown N/V Verified 08/13/22 10:33 corn AdvReac Unknown Nasal Verified 08/13/22 10:33 congestion, "very mild", positive allergy testing meperidine AdvReac Unknown N/V Verified 08/13/22 10:33 nalbuphine AdvReac Unknown Severe Verified 08/13/22 10:33 vomiting oxycodone [From Percocet] AdvReac Unknown N/V Verified 08/13/22 10:33 semaglutide [From Ozempic] AdvReac Unknown Severe GI Verified 08/13/22 10:33 symptoms tramadol AdvReac Unknown N/V Verified 08/13/22 10:33 Medications Home Medications Medication Instructions Recorded Confirmed Last Taken levalbuterol tartrate 45 2 inh inhalation Q4H PRN shortness 02/14/21 08/06/22 Unknown mcg/actuation aerosol inhaler of breath or wheezing #3 Inhalers (Xopenex HFA) lifitegrast 5 % eye drops in a 1 drp ophthalmic (eye) BID 05/11/21 08/06/22 Unknown dropperette (Xiidra) desloratadine 5 mg tablet 5 mg PO QAM #90 tabs 09/01/21 08/06/22 Unknown losartan 100 mg tablet 100 mg PO QAM #90 tabs 09/06/21 08/06/22 Unknown levalbuterol HCl 0.63 mg/3 mL 0.63 mg (3 mL) inhalation Q6H PRN 12/07/21 08/06/22 Unknown solution for nebulization cough/wheezing/shortness of breath #180 mL blood sugar diagnostic #100 ea 12/13/21 05/31/22 Unknown immun glob G 1 gram/5 30 ml subcut .every two weeks #5 mL 12/20/21 08/06/22 Unknown mL(20%)-gly-IgA over 50 mcg/mL subcutaneous soln (Cuvitru) tobramycin sulfate 40 mg/mL See Rx Instructions .Route 12/20/21 08/06/22 Unknown injection syringe .COMPLEX PRN nasal umeclidinium 62.5 mcg-vilanterol 1 inh inhalation DAILY #14 ea 12/20/21 08/06/22 Unknown 25 mcg/actuation powdr for inhalation (Anoro Ellipta) valacyclovir 500 mg tablet 500 mg PO Q2D #45 tabs 02/13/22 08/06/22 Unknown (Valtrex) ondansetron HCl 4 mg tablet 4 mg PO Q6H PRN nausea and 03/26/22 08/06/22 Unknown vomiting #20 tabs Lactobacillus rhamnosus GG 10 1 cap PO QAM 04/19/22 08/06/22 Unknown billion cell capsule (Culturelle) cyanocobalamin (vitamin B-12) 1,000 mcg PO DAILY #30 tabs 04/19/22 08/06/22 Unknown 1,000 mcg tablet mupirocin 2 % topical ointment 1 applic topical BID PRN Skin 04/19/22 08/06/22 Unknown Irritation mometasone 50 mcg/actuation nasal 2 spray intranasal DAILY #51 grams 05/31/22 08/06/22 Unknown spray sitagliptin 100 mg-metformin ER 1 tab PO DAILY #90 tabs 05/31/22 08/06/22 Unknown 1,000 mg tablet,extended [id number] mp (Janumet XR) polysaccharide iron complex 150 mg 150 mg PO DAILY #100 caps 06/03/22 08/06/22 Unknown iron capsule (Ferrex) omeprazole 40 mg capsule,delayed 40 mg PO DAILY #90 caps 06/06/22 08/06/22 Unknown release atorvastatin 10 mg tablet 10 mg PO QAM #90 tabs 06/25/22 08/06/22 Unknown montelukast 10 mg tablet 10 mg PO QAM #90 tabs 06/25/22 08/06/22 Unknown chlorthalidone 25 mg tablet 25 mg PO DAILY #45 tabs 07/05/22 08/06/22 Unknown amoxicillin 875 mg-potassium 1 tab PO BID 08/06/22 08/06/22 Unknown clavulanate 125 mg tablet budesonide-formoterol HFA 80 2 puff inhalation BID 08/06/22 08/06/22 Unknown mcg-4.5 mcg/actuation aerosol inhaler (Symbicort) Past Medical History Medical History Allergic rhinitis Anemia Asthma Cochlear implant in place Left Diabetes mellitus Essential hypertension Frequent sinus infections 07/2022- sinus infection/URI (negative Covid testing), started on abx/symbicort, symptoms resolved Was seen by Dr. 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 Shaver/[facility] (service desk agent) Immunodeficiency disorder, common variable on IVIG injections Iron deficiency anemia Osteoarthritis of right knee Pseudomonas aeruginosa colonization Nasal - reason for tobramycin PRN Exercise / Class Metabolic Activity III < 4 Walking/Shop/Light housework Past Family History Family History Father Arthritis Asthma Stroke Sister Asthma Mother Stroke Pulmonary fibrosis Past Surgical History Surgical History Family history of reaction to anesthesia Mother- "heart stopped in surgery" with hysterectomy in . No further details per PAT RN phone interview H/O arthroscopic knee surgery Right H/O section H/O lymph node biopsy History of ear surgery Cochlear implant surgery x2 History of esophagogastroduodenoscopy (EGD) S/P bunionectomy Right S/P cholecystectomy S/P colonoscopy 2020 S/P dilatation and curettage S/P hip replacement Left JUSTIN (12/10/16): SAB at L3/4 (x1 attempt) at [facility]. Per anesthesia report, prior to surgery "Pt c/o nausea.. small clear emesis.. medicated with Zofran.. Pt stated nausea subsided" S/P hysterectomy S/P myringotomy with insertion of tube S/P sinus surgery S/P tonsillectomy Past Anesthesia History Other Patient- Left JUSTIN (12/10/16): SAB at L3/4 (x1 attempt) at [facility]. Per anesthesia report, prior to surgery "Pt c/o nausea.. small clear emesis.. medicated with Zofran.. Pt stated nausea subsided" Mother- "heart stopped in surgery" with hysterectomy in . No further details per PAT RN phone interview History of PONV No Hx of Motion Sickness Social History Smoking Status: Never smoker Do You Dip or Chew Tobacco: No Hx Alcohol Use: No Hx Substance Use: No substance use type: does not use Review of Systems Occasional palpitations. Patient denies chest pain, shortness of breath, dyspnea on exertion, fever, chills, cough, wheezing. Physical Exam Vital Signs VITALS BP 137/75 P 65 TEMP 98.8 SP02 96%RA RESP 18 PHYSICAL Full cervical extension range of motion. Full TMJ range of motion. TMD 3.5 finger breaths Mallampati Score 2 Dentition: intact, + caps/crowns Lungs: clear throughout to auscultation Cardiac: regular rate and rhythm, no murmurs noted Spine: normal Carotid arteries: negative bruit Extremities: no edema Lab Results Anesthesia Preop Results Results Anesthesia Widget: WBC 6.60 K/ul (4.8-10.8) 08/10/22 Hgb 12.2 g/dl (12.0-16.0) 08/10/22 Hct 38.2 % (34.1-44.9) 08/10/22 Plt 395 K/uL (130-400) 08/10/22 Na 136 mmol/L (136-145) 07/13/22 K 3.5 mmol/L (3.5-5.1) 07/13/22 Cl 99 mmol/L (98-107) 07/13/22 CO2 30 mmol/L (21-32) 07/13/22 BUN 16 mg/dl (6-23) 07/13/22 Creat 0.88 mg/dl (0.6-1.2) 07/13/22 Glucose Level 126 mg/dl (70-99(Fasting)) H 07/13/22 PT 11.3 Seconds (9.0-12.0) 08/15/22 PTT 27.6 Seconds (21.0-31.0) 08/15/22 INR 1.1 (0.9-1.1) 08/15/22 HA1c 6.0 % (4.5-5.6) H 08/15/22 Blood Type O Positive 08/15/22 Antibody Screen NEGATIVE 08/15/22 Testing Electrocardiogram Date: 08/15/22 NSR at 68bpm. Rightward axis. NS ST/TWA. unconfirmed report. Chest X-Ray Date: 08/15/22 Findings: + NAD COVID-19 Risk Screen Screening Information COVID-19 Screen Date: 08/15/22 Exposure 21 Days Family/Household +COVID Last 21 Days: No Exposure 10 Days Any COVID Exposure Last 10 Days: No Symptoms Last 10 Days Experienced COVID Sx Last 10 Days: No + COVID 0-90 Days COVID + in Last 0-90 Days: No
[~2022-09-07 10:26] MED LIST changes: +ACETAMINOPHEN 500 MG TAB PO SCH; -ALBU18002 INH; -ALBUTEROL NEB NEB; -ASPEC81 PO; -ATOR10TA88 PO; -BCTCR/30 EXT; +BUPIVACAINE 0.25% 30 ML VIAL ONE; +BUPIVACAINE 0.5 % 5 MG/1 ML PF 10ML VIAL ONE; -CLON0.5T3 PO; -CLR/5 PO; +FAMOTIDINE 20 MG TAB PO SCH; +GABAPENTIN 600 MG DOSE PO SCH; -GLC/500 PO; -HYDR-5688 PO; -INFUSION IV; +Ketorolac (*for OR use only*) 30 MG, dexAMETHasone 4 MG, KETAMINE HCL (**OR use only) 1... INFIL SCH; -LEVA45AE INH; +LR 60ML/HR IV SCH; -MOME6000 NAE; -MONT1TAB3 PO; -OMEP40CA PO; -ONDA4TAB46 PO; -QVRINH80 INH; -SYMIN160 INH; +TRANEXAMIC ACID 1,000 MG **IV Intra-op IV SCH; +TRANEXAMIC ACID 1,000 MG **IV Pre-op IV SCH; -[UNRECOGNIZED DRUG - OTHER] IV; -[UNRECOGNIZED DRUG - OTHER] NAE; +ceFAZolin 1000MG 1,000 MG/7.5 ML SYR IV SCH; +dexAMETHasone 4 MG TAB PO SCH
[2022-09-07] MEDS ORDERED: PROPOFOL IV EMULSION 10 MG/ML 20 ML VIAL IV ONE ×2 (10:34→13:20)
[2022-09-07] MEDS ORDERED: MIDAZOLAM HCL 1 MG/ML 2ML VIAL ONE (10:34)
[2022-09-07] MEDS ORDERED: fentaNYL citrate 100 MCG/2 ML VIAL ONE (10:34)
[2022-09-07] MEDS ORDERED: LIDOCAINE 2% MPF LOCAL 5 ML VIAL INFIL ONE (10:34)
--- NOTE | 2022-09-07 11:25 | History & Physical Bridge Note ---
Date of Service September 07, 2022 History & Physical Bridge Note I have examined the patient, reviewed the History & Physical and in the interval since the performance of the History & Physical I have noted the following changes of clinical significance: no changes noted
[2022-09-07] MEDS ORDERED: fentaNYL citrate 100 MCG/2 ML VIAL IV PRN (11:47)
[2022-09-07] MEDS ORDERED: ePHEDrine sulfate 50 MG/ML AMP IV PRN (11:47)
[2022-09-07] MEDS ORDERED: ATROPINE SULFATE 0.1 MG/ML 10ML SYR IV PRN (11:47)
[2022-09-07] MEDS ORDERED: ONDANSETRON INJ 2 MG/ML 2 ML VIAL IV PRN ×2 (11:47→15:53)
[2022-09-07] MEDS ORDERED: ORTHO JOINT ANESTHETIC ONE (11:53)
[2022-09-07] MEDS ORDERED: PROMETHAZINE HCL INJ 25 MG/ML 1 ML VIAL ONE (12:13)
[2022-09-07] MEDS ORDERED: PHENYLEPHRINE HCL 10 MG/ML VIAL ONE (13:20)
--- NOTE | 2022-09-07 13:26 | Operative Report ---
PG Post Operative Report Pre & Post Diagnosis Operation Date: 09/07/22 12:50 Pre-Op Diagnosis: Right Knee Osteoarthritis Post-Op Diagnosis: Right Knee Osteoarthritis I identified the patient and participated in the time-out.: Yes Procedure Operation Date: 09/07/22 12:50 Actual Procedures p Right Total Knee Arthroplasty(Right) - Sergio Peña DO Surgeon Sergio Peña DO [employer]keeper Laborer Sergio Maki PA-C Estimated Blood Loss 20 Findings Consistent with Post-Op Diagnosis Specimens Right femoral and tibial bone Description of Procedure Implants used: I used a Ana Persona total knee arthroplasty system with a size 6 narrow femur, D tibia, 31 oval patella, and a size 12 medial congruent polyethylene bearing. All components were cemented in place with Biomet cement. Renetta arrived [facility] for the above procedure. She was seen in the preoperative holding area and the operative extremity was identified and signed. She was given a preoperative antibiotic, TXA, a spinal anesthetic and an adductor nerve block. She was taken back to the operating room and laid on the table in supine position. She was given basic sedation. The operative knee was then prepped and draped in sterile fashion. A timeout was done, and the patient and the operative extremity was properly identified. A midline incision was made directly over the patella. Dissection was taken down to the extensor mechanism. A subvastus arthrotomy was used. The medial retinaculum was released and the fat pad was mostly excised. The knee was flexed and the ACL, PCL, and meniscus were removed. A drill was sent down the center of the femoral canal followed by an intramedullary frank. Off that frank a distal femoral cutting block was placed. 9 mm was resected off the distal femur at 5 of valgus. A posterior referencing AP sizing guide was then placed on the distal femur. The femur measured to be a size 6. 2 drill holes were placed in 3 of external rotation. A 4-in-1 cutting block was then impacted into place. Anterior, posterior, and chamfer cuts were then made. The proximal tibia was then exposed. An external tibial alignment guide was placed. A tibial cut guide was then anchored in place and the proximal tibia was then resected. The posterior aspect of the knee was then opened up and any additional meniscus fragments and osteophytes were removed. The tibia measured to be a size D. The tibial plate was then placed in the appropriate rotation and the tibia was drilled and punched. Trial components were then placed. I used a size 12 medial congruent polyethylene insert. The knee was brought through a full range of motion and felt to be stable. The peg holes for the femoral component were then drilled. The patella was then everted and 9 mm was resected off the posterior aspect of the patella. The patella measured to be a size 31 oval. 3 peg holes were then drilled. A trial patella was placed. The knee was once again brought through a full range of motion and felt to be stable. Trial components were then removed. The surrounding soft tissues were injected with 100 cc of an orthopedic pain control cocktail. All components were then cemented into place with Biomet cement. The final polyethylene insert was then snapped into place. Once cement was dry the tourniquet was deflated. Hemostasis was obtained. A dilute betadyne lavage was then done for 3 minutes. The joint was then irrigated with normal saline solution. The subvastus arthrotomy was then closed with #1 Vicryl suture. The skin was closed with 2-0 Vicryl, 3-0V lock suture, and ramos. A soft compressive dressing was placed. She was then transferred to a hospital bed and taken to the postanesthesia care unit in stable condition. She tolerated the procedure well. Sergio Maki PA-C, was present for the entire procedure. He was critical for patient positioning, prepping, draping, retraction exposure, wound closure and application of sterile dressing. I attest to the content of the Intraoperative Record and any orders documented therein. Any exceptions are noted below.
--- NOTE | 2022-09-07 14:32 | XRay Report ---
XR knee RT 1 or 2V routine CLINICAL HISTORY: Postoperative evaluation. COMPARISON: Knee radiographs August 15, 2022. FINDINGS: Alignment of the total right knee arthroplasty is anatomic. There is no periprosthetic fra cture or unexpected radiopaque foreign body. There are skin ramos. IMPRESSION: Expected findings following total right knee arthroplasty. ACT 112: Negative or not required by law. Electronically signed by: Juan Pablo Brambila M.D. 09/07/2022 2:31 PM
--- NOTE | 2022-09-07 15:04 | Anesthesiology Progress Note ---
Date of Service September 07, 2022 Anesthesia Post Procedure Vital Signs Vital Signs: Temp Pulse Resp BP Pulse Ox O2 Del Method O2 Flow Rate 09/07/22 14:50 36.5 C 61 17 132/60 98 Room Air 09/07/22 14:35 66 17 133/70 98 Room Air 09/07/22 14:25 63 16 138/66 97 Room Air 09/07/22 14:15 69 16 149/79 H 97 Room Air 09/07/22 14:05 70 16 127/61 100 Oxymask 5 09/07/22 13:57 36.0 C L 76 16 129/75 99 Oxymask 5 09/07/22 11:15 36.7 C 75 20 165/88 H 99 Room Air Transfer of Care Handoff Completed per policy Notes Mental Status: alert / awake / arousable Patient Amnestic to Procedure: Yes Nausea / Vomiting: adequately controlled Pain: adequately controlled Airway Patency, RR, SpO2: stable & adequate BP & HR: stable & adequate Hydration State: stable & adequate Neuraxial Anesthesia: was administered and sensory block is resolving Anesthetic Complications: no major complications apparent and Pt Satisfied with anesthetic care
[2022-09-07] MEDS ORDERED: PHARMACY GLYCEMIC MGMT CONSULT PRN (15:53)
[2022-09-07] MEDS ORDERED: MAGNESIUM HYDROXIDE SUSP 30 ML UDC PO PRN (15:53)
[2022-09-07] MEDS ORDERED: LEVALBUTEROL TARTRATE 15 GM HFA.AER.AD INH PRN (15:53)
[2022-09-07] MEDS ORDERED: bisacodyL 10 MG SUPP PR PRN (15:53)
[2022-09-07] MEDS ORDERED: oxyCODONE HCL IR 5 MG TAB (IMMEDIATE RELEASE) PO PRN (15:53)
[2022-09-07] MEDS ORDERED: NALOXONE HCL 0.4 MG/1 ML VIAL/CARP IV PRN (15:53)
[2022-09-07] MEDS ORDERED: [UNRECOGNIZED DRUG - OTHER] SQ SCH (15:53)
[2022-09-07] MEDS ORDERED: HYDROmorphone INJ 0.5 MG/0.5 ML SYR IV PRN (15:53)
[2022-09-07] MEDS ORDERED: TOBRAMYCIN SULFATE 40 MG/ML PRN (15:53)
[2022-09-07] MEDS ORDERED: METOCLOPRAMIDE HCL INJ 5 MG/ML 2 ML VIAL IV PRN (15:53)
[2022-09-07] MEDS ORDERED: IMMUNE GLOBULIN SUBCUTANEOUS SQ SCH (15:53)
[2022-09-07] MEDS ORDERED: MUPIROCIN 2% OINT 22 GM TUBE TOP PRN (15:53)
[2022-09-07] MEDS ORDERED: ONDANSETRON 4 MG OD TAB PO PRN (15:53)
[2022-09-07] MEDS: SODIUM CHLORIDE 0.9% 1000ML 1,000 ML IV SCH (16:26)
[2022-09-07] MEDS ORDERED: GLUCOSE 40% GEL 15 GM TUBE PO PRN (16:45)
[2022-09-07] MEDS ORDERED: GLUCAGON FOR INJ 1 MG VIAL IM PRN (16:45)
[2022-09-07] MEDS ORDERED: DEXTROSE 50% 50 ML SYRINGE IV PRN (16:45)
[2022-09-07] MEDS ORDERED: CARBOHYDRATES FOR HYPOGLYCEMIA PO PRN (16:45)
[2022-09-07] MEDS ORDERED: GLUCOSE 10 TAB/TUBE PO PRN (16:45)
[2022-09-07] MEDS: INSULIN ASPART PER UNIT SC SCH ×2 (18:04→21:12)
[2022-09-07] MEDS: KETOROLAC 30 MG/ML VIAL IV SCH (18:29)
[2022-09-07] MEDS ORDERED: diphenhydrAMINE Capsule 25 MG CAP PO PRN (19:04)
--- NOTE | 2022-09-07 19:56 | Pharmacy Report ---
Glycemic Ortho Sign Off Note - Date of Service September 07, 2022 - Scope Glycemic Pharmacist consulted for glycemic control and to write orders per [facility] inpatient glycemic control protocol. - Objective Accuchecks BSG (last 24hrs):: 09/07/22 09/07/22 09/07/22 10:57 13:57 16:50 POC Glucose 98 109 H 127 H - Assessment * Pt is maintained on oral antidiabeticagent[s]as anoutpatient with excellent control per recent A1c * Oral agents are not recommended for inpatient use d/t drug interactions, changing PO intake, and difficulty titrating for acute hyper/hypoglycemia. * Recommended regimen for inpatient use is SQ insulin * Low stress weight based insulin dosing appropriate since patient has minimal risk factors for insulin resistance (i.e. no steroids). * Appropriate to DC insulin and resume outpatient antidiabetic regimen at discharge * Goal is to maintain BSGs <200 mg/dl (ideally <150 mg/dl) to prevent post op complications - Plan For Inpatient Glycemic Control * Basal insulin * Not needed based on A1c, pre-op BSGs, and minimal risk factors for insulin resistance * Bolus insulin * Utilize low stress weight based NovoLog parameters per scale ACHS * Pharmacy has entered glycemic orders and is signing off of the glycemic consult. We will no longer be making adjustments to inpatient regimen. Please feel free to re-consult if needed. Thank you.
[2022-09-07] MEDS: LEVALBUTEROL HCL 0.63 MG/3 ML NEB INH PRN (20:26)
[2022-09-07] MEDS: ASPIRIN 81 MG ECTAB PO SCH (20:55)
[2022-09-07] MEDS: ceFAZolin 2000MG 2,000 MG/15 ML SYR IV SCH (20:56)
[2022-09-07] MEDS: DOCUSATE SODIUM 100 MG CAP PO SCH (20:57)
[2022-09-07] MEDS: ACETAMINOPHEN 500 MG TAB PO SCH (20:58)
[2022-09-07] MEDS ORDERED: SENNA 8.6 MG TAB PO SCH (21:00)
[2022-09-08] MEDS: KETOROLAC 30 MG/ML VIAL IV SCH ×3 (00:05→12:42)
[2022-09-08] MEDS: SODIUM CHLORIDE 0.9% 1000ML 1,000 ML IV SCH (01:48)
[2022-09-08] MEDS: ceFAZolin 2000MG 2,000 MG/15 ML SYR IV SCH (04:00)
[2022-09-08] MEDS: ACETAMINOPHEN 500 MG TAB PO SCH (06:08)
[2022-09-08] MEDS ORDERED: ADVANCED PROBIOTIC 1250 MG CAPSULE PO SCH (09:00)
[2022-09-08] MEDS ORDERED: UMECLIDINIUM/VILANTEROL 62.5/25MCG 7 PUFFS/INHALER INH SCH (09:00)
[2022-09-08] MEDS ORDERED: CHLORTHALIDONE 25 MG TAB PO SCH (09:00)
[2022-09-08] MEDS ORDERED: LOSARTAN POTASSIUM 50 MG TAB PO SCH (09:00)
[2022-09-08] MEDS ORDERED: MONTELUKAST SODIUM 10 MG TABLET PO SCH (09:00)
[2022-09-08] MEDS ORDERED: valACYclovir HCL 500 MG TABLET PO SCH (09:00)
[2022-09-08] MEDS ORDERED: PANTOprazole 40 MG TAB PO SCH (09:00)
[2022-09-08] MEDS ORDERED: MULTIVITAMIN TAB PO SCH (09:00)
[2022-09-08] MEDS ORDERED: ATORVASTATIN 10 MG TAB PO SCH (09:00)
[2022-09-08] MEDS ORDERED: FLUTICASONE PROPIONATE NA SPR 16 GM BTL SCH (09:00)
[2022-09-08] MEDS ORDERED: IRON POLYSACCHARIDE COMPLEX 150 MG CAPSULE PO SCH (09:00)
--- NOTE | 2022-09-08 09:20 | Orthopedic Progress Note ---
Date of Service September 08, 2022 Assessment & Plan (1) Status post right knee replacement: Overall she is doing well. She denies any much pain in the right knee. She will be seen by physical therapy today for ambulation and range of motion exercises. She has completed 24 hours of antibiotics. She is on Vicodin for pain. She is on aspirin for DVT prophylaxis. She can be discharged home later today. She will follow-up with orthopedics in 2 weeks. Melvina Jackson was seen and examined at bedside this morning. Overall she is doing fairly well. She is not having much pain in the right knee. She has been up and ambulating to the bathroom. She has no complaints.. Review of Systems All systems reviewed & are unremarkable except as noted in HPI & below. Physical Exam On physical examination of the right knee, the dressing is clean and dry. Her leg is out full extension. She has active dorsiflexion plantarflexion of the right ankle.. Results & Data Results & Data Laboratory Results . Diagnostic Findings Postoperative x-rays of the right knee show the prosthesis to be in anatomic alignment without any evidence of fracture, desiccation, or loosening. PG Care Time/CCT Total # of Minutes Spent Total Time Spent with Patient: Total time spent is greater than 50% in coordination of care (as documented) at patient's floor/unit and/or counseling patient: Coding Level of Care Code 67436 Post Operative Follow-Up Diagnoses Status post right knee replacement Z96.651
--- NOTE | 2022-09-08 09:21 | Discharge Summary ---
Date of Service September 08, 2022 Principal Diagnosis Same as "Discharge Diagnosis" noted below under Discharge Instructions. Discharge Exam On physical examination of the right knee, the dressing is clean and dry. Her leg is out full extension. She has active dorsiflexion plantarflexion of the right ankle.. Discharge Data Procedures Performed Operation Date: 09/07/22 12:50 Actual Procedures p Right Total Knee Arthroplasty(Right) - Sergio Peña DO Ordered Studies 09/07/22 12:59 US - OR guided needle placemen Routine Hospital Course (1) Status post right knee replacement: On September 07, 2022 Renetta arrived at [facility] and underwent a right knee replaced without complication. She had a spinal anesthetic. Postoperatively she was started on aspirin for DVT prophylaxis and transferred to the general orthopedic floors. Her hospital course was uneventful. On postop day #1, her vital signs were stable and her pain was well controlled. She was able to participate well with physical therapy doing ambulation and range of motion exercises. She completed 24 hours of antibiotics. She was then discharged home. She will follow-up with orthopedics in 2 weeks. PG Care Time/CCT Total # of Minutes Spent Total Time Spent with Patient: Total time spent is greater than 50% in coordination of care (as documented) at patient's floor/unit and/or counseling patient: Discharge Plan Discharge Items Patient Disposition: Home - Home Health Services Reason For Visit: Right Knee Degenerative Joint Disease Discharge Diagnosis: Right knee replacement Activity: Per Instructions section Non-emergency contact: Surgeon Call non-emergency contact if: your wound has increased redness and your wound has increased drainage Follow-up/Referrals: Dannielle Garcia MD [Primary Care Provider] - Diet: Regular Addtl Attending Provider Instructions: Activity and Therapy Recommendations: * If you are using [facility] then therapy will be provided at your home until they feel you have accomplished all of your goals. * If you are using [facility] then Physical Therapy will be provided until they feel you are ready to start Outpatient Physical Therapy. * If you are not using home therapy then Outpatient Physical Therapy should start about 3-5 days from your day of surgery. Therapy will last about 6-10 weeks * It is important not to put a pillow under your knee when you are relaxing or sleeping. It is just as important to make sure you are getting your knee perfectly straight as it is to regain your knee bend. * You were shown a series of exercises in the hospital. Do these exercises three times each day including the exercises you were shown in physical therapy. * Get up and walk several times each day. For the first four weeks, try not to stand or walk for more than one hour at a time. If you do stand or walk for more than one hour, you will not hurt anything, but your leg will likely swell. * As you feel comfortable, you may change from the walker or crutches to a cane and then to independent walking. Medications: * Narcotic You will likely be sent home from the hospital with a prescription for the narcotic pain medication that worked best throughout your stay. * Aspirin Most patients will be required to take Aspirin 81mg twice a day for 6 weeks after surgery. This is obtained [id number] and a prescription is not necessary. * Other medications may be prescribed for specific circumstances. If you have any questions, please call the office at . * Resume previous home medications unless otherwise instructed TEDs/Elastic Stockings: The white elastic stockings help limit swelling and prevent blood clots from forming in your legs.~ The more you wear them, the more they work. Wear them for six weeks. Dressing Care: The dressing can be changed after physical therapy on postop day #1. Daily dry dressing changes for a few days, especially if the incision is still draining some. If the incision is not draining then you may leave the ramos open to air. If there is a little bit of drainage or if the ramos are getting stuck on your clothing then cover the incision with a dry dressing. The ramos will be removed at your 2 week follow-up appointment. Showering: You may shower 5 days from the day of surgery as long as the incision is no longer draining. You may shower with the ramos exposed. Let soapy water run over the ramos and pat them dry. Do not scrub or soak the incision. Things To Watch For: * Drainage from the incision site that occurs more than one week after your surgery. * Increased redness at the incision site. * Fever above 102 degrees Fahrenheit. * Unusual chest pain or shortness of breath. * Call [facility] at with any of the above problems Follow-Up Visit: Follow-up with Dr. Peña's PA (Sergio Maki) 2-3 weeks after your day of surgery. He will remove your ramos and answer any questions. If you have any additional questions or concerns, Dr Peña is usually in the office at the same time and will be available An appointment was probably scheduled when you signed-up for surgery in the office. If you have any questions call Office Instructions: More detailed instructions as well as Frequently Asked Questions were provided in a folder by our office when you signed-up for surgery. Please review these instructions when you get home. If you have any further questions or concerns, please feel free to call the office at [phone] Pending Studies at Discharge: No Stand-Alone Forms: My [facility] Playteau, Smoking Cessation Medications and DC Order Prescriptions: New aspirin 81 mg Tablet,Delayed Release (Dr/Ec) 81 mg PO BID 42 Days Qty: 84 0RF Continued levalbuterol tartrate [Xopenex HFA] 45 mcg/actuation HFA aerosol inhaler 2 inh INH Q4H PRN (Reason: shortness of breath or wheezing) Qty: 3 3RF (DME) OneTouch Ultra Blue Test Strip Strip See Dose Instructions .ROUTE .MEDSUPPLY Qty: 100 3RF Dose Instruction: As directed Rx Instructions: As directed; check once daily dx: E11.9 tobramycin sulfate 40 mg/mL syringe See Rx Instructions .ROUTE .COMPLEX PRN (Reason: nasal) Rx Instructions: Irrigations for 3 weeks use 20 mg of tobramycin mixed with 240 ml of saline made with a elli med sinus rinse and sash her nose 2 x per day with 120 mg in each nostril; ( [facility] Exact Verbmanasa page 3 of 3 on dc instructions) PRN; valacyclovir [Valtrex] 500 mg tablet 500 mg PO Q2D Qty: 45 3RF ondansetron HCl 4 mg tablet 4 mg PO Q6H PRN (Reason: nausea and vomiting) Qty: 20 0RF Culturelle 10 billion cell capsule 1 cap PO QAM mupirocin 2 % ointment 1 applic topical BID PRN (Reason: Skin Irritation) Rx Instructions: apply with Q-tip to front of nose in a circular manner BID mometasone 50 mcg/actuation spray,non-aerosol 2 spray intranasal DAILY Qty: 51 3RF Rx Instructions: administer into each nostril polysaccharide iron complex [Ferrex 150] 150 mg iron capsule 150 mg PO DAILY Qty: 100 0RF omeprazole 40 mg capsule,delayed release(DR/EC) 40 mg PO DAILY Qty: 90 3RF atorvastatin 10 mg tablet 10 mg PO QAM Qty: 90 3RF montelukast 10 mg tablet 10 mg PO QAM Qty: 90 3RF chlorthalidone 25 mg tablet 25 mg PO DAILY Qty: 90 3RF levalbuterol HCl 0.63 mg/3 mL solution for nebulization 0.63 mg INHALATION Q6H PRN (Reason: cough/wheezing/shortness of breath) Qty: 180 3RF losartan 100 mg tablet 100 mg PO QAM Qty: 90 3RF hydrocodone-acetaminophen 5-325 mg tablet 1 tab PO Q6H PRN (Reason: pain) Qty: 30 0RF Anoro Ellipta 62.5-25 mcg/actuation blister with device 1 inh inhalation DAILY Qty: 14 2RF Cuvitru 1 gram/5 mL (20 %) solution 30 ml subcut .every two weeks Qty: 5 2RF Rx Instructions: 30 grams subcu every two weeks cyanocobalamin (vitamin B-12) 1,000 mcg tablet 1,000 mcg PO DAILY Qty: 30 0RF Janumet XR 100-1,000 mg tablet, ER multiphase 24 hr 1 tab PO DAILY Qty: 90 3RF Xiidra 5 % Dropperette 1 drp OPHTHALMIC (EYE) BID desloratadine [Clarinex] 5 mg tablet 5 mg PO QAM Discharge Orders: Discharge Order (Routine); Ordered 09/08/22 Ordered By: Sergio Peña Admission Data Admit Date/Time: 09/07/22 13:56 Attending Provider: Sergio Peña Admit Provider: Sergio Peña Primary Care Provider: Dannielle Garcia
[2022-09-08] MEDS: DOCUSATE SODIUM 100 MG CAP PO SCH (09:58)
[2022-09-08] MEDS: ASPIRIN 81 MG ECTAB PO SCH (09:58)
[2022-09-08] MEDS: INSULIN ASPART PER UNIT SC SCH ×2 (10:07→12:43)
[2022-09-08] MEDS: LEVALBUTEROL HCL 0.63 MG/3 ML NEB INH PRN (10:53)
== END 2022-09-08 14:40 | disposition home health service (06) ==
LOC: ASU 10:26 → 3E 10:26

== ENCOUNTER 2023-05-10 08:25 | Inpatient (IN) ==
[2023-05-10] MEDS ORDERED: ONDANSETRON INJ 2 MG/ML 2 ML VIAL IV STA (09:05)
[2023-05-10] MEDS ORDERED: SODIUM CHLORIDE 0.9% 1000ML 1,000 ML IV ONE (09:05)
[2023-05-10] MEDS ORDERED: FAMOTIDINE 20MG IV PUSH 20 MG/5 ML SYR IV STA (09:05)
--- NOTE | 2023-05-10 09:08 | Emergency Department Note ---
Impression & Plan Painless jaundice, Immunodeficiency disorder, common variable, Elevated LFTs, Hypomagnesemia, Dilation of pancreatic duct, Dilated bile duct ED Provider Note NAME: MONIQUE RODRIGUEZ AGE: 67 SEX: F ARRIVES VIA: Walk-In INFORMANT: Patient ED PROVIDER(S): Sunny Ramirez MD CHIEF COMPLAINT: Abnormal CT scan, elevated LFTs, painless jaundice, referred. PLAN: Disposition: Admit MEDICAL DECISION MAKING: The patient is a pleasant 67-year-old woman with a past medical history of CVID who presents to the emergency department via walk-in, coming by her referred by her primary care doctor's office after having outpatient CT imaging that demonstrated a concerning finding suspicious for pancreatic head mass with associated biliary obstruction. Patient CT imaging was performed in setting of having outpatient blood work to evaluate for newly developing pruritus over the past week which was initially ordered by her content development specialist at [facility] who managed her IgG infusions. Her blood work did show newly elevated transaminitis with bilirubin of 6.2 and AST and ALT in the 100s. The patient had a repeat blood work with her primary care doctor yesterday and showed similar values. The patient now only notices that her eyes and skin have appeared yellow. They deny any fevers, cough, congestion, CP, SOB, or urinary symptoms. On arrival the patient is fatigued appearing but in no acute distress, afebrile with stable vital signs. She appears clinically dry. She has moderate scleral icterus and jaundice. Abdomen is nontender. WBC within normal limits. There is no neutrophilia nor left shift. H/H is similar to prior. Platelets within normal limits. Chemistry without metabolic acidosis. Magnesium 1.1 with IV repletion initiated. Electrolytes otherwise unremarkable. LFTs are mildly increased from prior with total bilirubin 7.1 and direct bilirubin 4.3 with stable AST and ALT at 97 and 76, respectively. Lipase is mildly elevated at 200, approximating 3 times upper limit of normal. UA without convincing evidence of infection. COVID-19 RNA, NAAT test was negative. Unfortunately, we do not have ERCP or EUS capability at this time through the weekend and potentially next week and so transfer to tertiary facility is recommended. Case was discussed with [facility], Dr. Chandler and given they are no current inpatient beds for the patient's level of care and the fact that she is stable, appropriate to consider outpatient scheduling for EUS for further evaluation. However, if the patient were to develop systemic symptoms of fev er/infection then more emergent testing and transfer would be indicated. Given the patient does report generalized weakness and poor oral intake evidenced by low magnesium she did agree with hospital admission for supportive care. Therefore she will observed here at this facility and further consideration for possible discharge with outpatient EUS versus indication for transfer will be reassessed. The patient and her are in agreement with this plan. Case was d/w BANDAR Alexander PAC with BAND[facility] Diego hospitalist who will evaluate the patient for admission. Triage Nursing notes reviewed and agree them. Prior/outside medical records reviewed Vital Signs: reviewed Differential diagnosis: Infection, dehydration, metabolic abnormality, hypo/hyperglycemia, electrolyte disturbance, anemia, hypoxia, cardiac sources, intracerebral event, toxicologic, neurologic, as well as other pathologies. ER treatment provided: See below. Diagnostics interpreted by me: ECG: NSR, 77 bpm, no ectopy, no overt ST elevation or depression. Cardiac Monitoring: An order for continuous cardiac monitoring was placed and demonstrated NSR, 77 bpm, no ectopy. Laboratory studies: See below Imaging studies: See below Consultation(s): Dr. Kyle, [facility] triage provider. Dr. Chandler, [facility]. BANDAR Alexander PAC with [facility] hospitalist. HPI: The patient is a pleasant 67-year-old woman with a past medical history of CVID who presents to the emergency department via walk-in, coming by her referred by her primary care doctor's office after having outpatient CT imaging that demonstrated a concerning finding suspicious for pancreatic head mass with associated biliary obstruction. Patient CT imaging was performed in setting of having outpatient blood work to evaluate for newly developing pruritus over the past week which was initially ordered by her content development specialist at [facility] who managed her IgG infusions. Her blood work did show newly elevated transaminitis with bilirubin of 6.2 and AST and ALT in the 100s. The patient had a repeat blood work with her primary care doctor yesterday and showed similar values. The patient now only notices that her eyes and skin have appeared yellow. They deny any fevers, cough, congestion, CP, SOB, or urinary symptoms. ROS: See above HPI for pertinent positives & negatives. A total of 10 systems reviewed and were otherwise negative. VITALS:See Below PHYSICAL EXAMINATION: GENERAL: Awake, alert, fatigued-appearing, in no distress HENT: Normocephalic, atraumatic. Oropharynx with dry mucous membranes and otherwise unremarkable. EYES: Normal conjunctiva. Sclera moderately icteric. NECK: Supple. No nuchal rigidity. FROM. No JVD. RESPIRATORY: Clear to auscultation. CARDIAC: Regular rate, normal rhythm. Extremities warm and well perfused. Pulses equal. ABDOMEN: Soft, non-distended. No tenderness to palpation. No rebound or guarding. No masses. RECTAL: Deferred. MUSCULOSKELETAL: Chest examination reveals no tenderness. The back is symmetrical on inspection without obvious abnormality. There is no CVA tenderness to palpation. No joint edema. LOWER EXTREMITIES: Calves are equal size bilaterally and non-tender. No edema. No discoloration. NEURO: Normal sensorium. No sensory or motor deficits noted. SKIN: Moderate jaundice noted. No rashes. ED COURSE: Critical Care: I have personally spent greater than 35 minutes of critical care time in the direct management of this patient. This includes bedside care, interpretation of diagnostic studies, and testing, discussion with consultants, patient, and family members, and other required patient management activities. This 35 minutes is in excess of all separately billable procedures. Sunny Ramirez MD Past Med/Surg History Medical History Allergic rhinitis Anemia Asthma Cochlear implant in place Left Cough Diabetes mellitus Essential hypertension Frequent sinus infections Gastro-esophageal reflux disease without esophagitis Hearing loss History of cataract R/L Hx of supraventricular tachycardia Hyperlipidemia Immunodeficiency disorder, common variable on IVIG injections Iron deficiency anemia Pseudomonas aeruginosa colonization Nasal - reason for tobramycin PRN Surgical History Family history of reaction to anesthesia Mother- "heart stopped in surgery" with hysterectomy in 1970s. H/O arthroscopic knee surgery Right H/O section H/O lymph node biopsy History of ear surgery Cochlear implant surgery x2 History of esophagogastroduodenoscopy (EGD) S/P bunionectomy Right S/P cholecystectomy S/P colonoscopy 2020 S/P dilatation and curettage S/P hip replacement Left JUSTIN (12/10/16) S/P hysterectomy S/P myringotomy with insertion of tube S/P sinus surgery S/P tonsillectomy Status post right knee replacement (~08/2022) Family History Father Arthritis Asthma Stroke Sister Asthma Mother Stroke Pulmonary fibrosis Social History Smoking Status: Never smoker Second Hand Exposure: No; Do You Dip or Chew Tobacco: No; Hx Alcohol Use: No Hx Substance Use: No Preferred Language: [place] Communication Ability: Effective Communication Ability Comment: Cochlear implant and hearing aid Management Associate Required: No Beliefs That Will Affect Care: None marital status: Current Living Situation: Spouse current occupational status: retired How many Children do You have: 1 Feels Safe at Home: Yes Dental Care, Regularly: Yes Physical Activity Frequency: 3-4 Times per Week Seatbelt Use: always Sunscreen Use: Yes Assistive Devices: Cane and Walker Allergies Allergies Allergy/AdvReac Type Severity Reaction Status Date / Time glycine [From Cuvitru] Allergy Intermediate Rash Verified 05/10/23 14:38 immune globulin,alpha (IgA) Allergy Intermediate Rash Verified 05/10/23 14:38 greater than 50 mcg/mL [From Cuvitru] immune globulin,gamma (IgG) Allergy Intermediate Rash Verified 05/10/23 14:38 human [From Cuvitru] nitrofurantoin Allergy Mild Rash Verified 05/10/23 14:38 meperidine AdvReac Severe N/V Verified 05/10/23 14:38 nalbuphine AdvReac Severe Severe Verified 05/10/23 14:38 vomiting oxycodone [From Percocet] AdvReac Severe N/V Verified 05/10/23 14:38 semaglutide [From Ozempic] AdvReac Severe Severe GI Verified 05/10/23 14:38 symptoms tramadol AdvReac Severe N/V Verified 05/10/23 14:38 Home Meds Home Medications Medication Instructions Recorded Confirmed Lactobacillus rhamnosus GG 10 1 cap PO QAM 04/19/22 05/10/23 billion cell capsule (Culturelle) mupirocin 2 % topical ointment 1 applic topical BID PRN Skin 04/19/22 05/10/23 Irritation alogliptin 25 mg tablet 25 mg PO DAILY 04/05/23 05/10/23 cyclosporine 0.05 % eye drops in a 1 drp ophthalmic (eye) Q12H 04/05/23 05/10/23 dropperette fluticasone propionate 93 1 spray intranasal Q12H 04/05/23 05/10/23 mcg/actuation breath activated aerosol (Xhance) metformin 750 mg tablet,extended 1,500 mg PO DAILY 04/05/23 05/10/23 release 24 hr cetirizine 10 mg tablet 10 mg PO .COMPLEX 05/09/23 05/10/23 famotidine 40 mg tablet 40 mg PO BID 05/09/23 05/10/23 hydroxyzine HCl 10 mg tablet 20 mg PO BID 05/09/23 05/10/23 epinephrine 0.3 mg/0.3 mL 0.3 ml IM DIRECTED PRN allergic 05/10/23 05/10/23 injection, auto-injector reactions fluticasone propionate 93 1 spray intranasal BID 05/10/23 05/10/23 mcg/actuation breath activated aerosol (Xhance) valacyclovir 500 mg tablet 0 mg PO Q2D 05/10/23 05/10/23 (Valtrex) Previous Rx's Medication Instructions Recorded ondansetron HCl 4 mg tablet 4 mg PO Q6H PRN nausea and 03/26/22 vomiting #20 tabs cyanocobalamin (vitamin B-12) 1,000 mcg PO DAILY #30 tabs 04/19/22 1,000 mcg tablet montelukast 10 mg tablet 10 mg PO QAM #90 tabs 09/21/22 omeprazole 40 mg capsule,delayed 40 mg PO DAILY #90 caps 09/21/22 release levalbuterol tartrate 45 2 inh inhalation Q4H PRN shortness 10/01/22 mcg/actuation aerosol inhaler of breath or wheezing #3 Inhalers (Xopenex HFA) levalbuterol HCl 0.63 mg/3 mL 0.63 mg (3 mL) inhalation Q6H PRN 10/04/22 solution for nebulization cough/wheezing/shortness of breath #180 mL blood sugar diagnostic #100 ea 10/22/22 desloratadine 5 mg tablet 5 mg PO QAM #90 tabs 01/03/23 (Clarinex) losartan 100 mg tablet 100 mg PO QAM #90 tabs 05/08/23 umeclidinium 62.5 mcg-vilanterol 1 inh inhalation DAILY #120 ea 04/30/23 25 mcg/actuation powdr for inhalation (Anoro Ellipta) amlodipine 2.5 mg tablet 5 mg PO DAILY #30 tabs 05/09/23 Results & Data (ED) Vital Signs Vital Signs - 24 hr 05/10/23 08:27 05/10/23 09:21 05/10/23 10:19 Temperature 36.3 C L Temperature Source Temporal Artery Scan Pulse Rate 83 75 Pulse Rate [Apical] Pulse Rhythm Regular Pulse Rhythm [Apical] Pulse Strength [Apical] Respiratory Rate 20 Respiratory Effort / Characteristics Non-Labored Spontaneous Respiratory Depth Normal Respiratory Pattern Blood Pressure 165/91 H Blood Pressure [Right Arm] Blood Pressure Mean 115 Blood Pressure Mean [Right Arm] Blood Pressure Position [Right Arm] Pulse Oximetry 97 98 Oxygen Delivery Method Room Air Room Air Sepsis Recent Fever Within 48 Hours No Sepsis New/Unexplained Change in Mental Status N/A Sepsis Action Taken by Nursing No Action Required 05/10/23 11:54 05/10/23 14:00 Temperature Temperature Source Pulse Rate Pulse Rate [Apical] 90 82 Pulse Rhythm Pulse Rhythm [Apical] Regular Regular Pulse Strength [Apical] Normal Normal Respiratory Rate 16 18 Respiratory Effort / Characteristics Non-Labored Spontaneous Non-Labored Spontaneous Respiratory Depth Normal Normal Respiratory Pattern Regular Regular Blood Pressure Blood Pressure [Right Arm] 154/75 H 162/83 H Blood Pressure Mean Blood Pressure Mean [Right Arm] 101 109 Blood Pressure Position [Right Arm] Lying Lying Pulse Oximetry 97 97 Oxygen Delivery Method Room Air Room Air Sepsis Recent Fever Within 48 Hours Sepsis New/Unexplained Change in Mental Status Sepsis Action Taken by Nursing Laboratory Data Attestation: I reviewed the patient's lab results. 05/10/23 09:21 05/10/23 09:21 Lab Results 05/10/23 05/10/23 05/10/23 Range/Units 09:21 09:21 09:21 WBC 6.22 (4.8-10.8) K/ul RBC 3.78 L (4.20-5.40) M/uL Hgb 11.7 L (12.0-16.0) g/dl Hct 33.2 L (37.0-47.0) % MCV 87.8 (80.0-100.0) fL MCH 31.0 (25.0-34.0) pg MCHC 35.2 (32.0-36.0) g/dL RDW Std Deviation 55.4 H (36.4-46.3) fL RDW Coeff of Beverly 17.3 H (11.5-14.5) % Plt Count 348 (130-400) K/uL MPV 10.6 (9.4-12.4) fL Immature Gran % (Auto) 1.3 % Neut % (Auto) 64.5 % Lymph % (Auto) 16.2 % Bacon % (Auto) 8.7 % Eos % (Auto) 7.2 % Baso % (Auto) 2.1 % Neut # (Auto) 4.01 (1.40-6.50) K/uL Lymph # (Auto) 1.01 L (1.2-3.4) K/uL Bacon # (Auto) 0.54 (0.11-0.59) K/uL Eos # (Auto) 0.45 (0-0.50) K/uL Baso # (Auto) 0.13 (0-0.2) K/uL Immature Gran # (Auto) 0.08 (0.01-0.20) K/uL PT (9.0-12.0) Seconds INR (0.9-1.1) Sodium 135 L (136-145) mmol/L Potassium 3.6 (3.5-5.1) mmol/L Chloride 102 (98-107) mmol/L Carbon Dioxide 22 (21-32) mmol/L Anion Gap 11 (3-11) BUN 12 (6-23) mg/dl Creatinine 0.86 (0.6-1.2) mg/dl Est Cr Clr Drug Dosing 57.9 ml/min Est GFR ( Amer) 82.2 ml/min Est GFR (Non-Af Amer) 70.9 ml/min BUN/Creatinine Ratio 14.0 (10-20) Glucose 172 H (70-99(Fasting)) mg/dl Calcium 9.1 (8.6-10.3) mg/dl Phosphorus 3.4 (2.5-4.9) mg/dl Magnesium 1.1 L (1.7-2.4) mg/dl Total Bilirubin 7.1 H (0.2-1.0) mg/dl Direct Bilirubin 4.3 H (0-0.2) mg/dl AST 97 H (13-39) U/L ALT 76 H (7-52) U/L Alkaline Phosphatase 124 H (34-104) U/L Total Protein 7.4 (6.0-8.3) gm/dl Albumin 3.9 (3.4-5.0) gm/dl Globulin 3.5 (2.5-4.0) gm/dl Albumin/Globulin Ratio 1.1 (0.9-2) Lipase 200 H (11-82) U/L Urine Color Urine Appearance (Clear) Urine pH (4.5-7.5) Ur Specific Brighton (1.000-1.030) Urine Protein (Negative) Urine Glucose (UA) (Negative) Urine Ketones (Negative) Urine Blood (Negative) Urine Nitrite (Negative) Urine Bilirubin (Negative) Urine Urobilinogen (Negative) Ur Leukocyte Esterase (Negative) SARS-CoV-2, RNA, NAAT NEGATIVE (NEGATIVE) 05/10/23 05/10/23 Range/Units 09:21 10:03 WBC (4.8-10.8) K/ul RBC (4.20-5.40) M/uL Hgb (12.0-16.0) g/dl Hct (37.0-47.0) % MCV (80.0-100.0) fL MCH (25.0-34.0) pg MCHC (32.0-36.0) g/dL RDW Std Deviation (36.4-46.3) fL RDW Coeff of Beverly (11.5-14.5) % Plt Count (130-400) K/uL MPV (9.4-12.4) fL Immature Gran % (Auto) % Neut % (Auto) % Lymph % (Auto) % Bacon % (Auto) % Eos % (Auto) % Baso % (Auto) % Neut # (Auto) (1.40-6.50) K/uL Lymph # (Auto) (1.2-3.4) K/uL Bacon # (Auto) (0.11-0.59) K/uL Eos # (Auto) (0-0.50) K/uL Baso # (Auto) (0-0.2) K/uL Immature Gran # (Auto) (0.01-0.20) K/uL PT 27.2 H (9.0-12.0) Seconds INR 2.6 H (0.9-1.1) Sodium (136-145) mmol/L Potassium (3.5-5.1) mmol/L Chloride (98-107) mmol/L Carbon Dioxide (21-32) mmol/L Anion Gap (3-11) BUN (6-23) mg/dl Creatinine (0.6-1.2) mg/dl Est Cr Clr Drug Dosing ml/min Est GFR ( Amer) ml/min Est GFR (Non-Af Amer) ml/min BUN/Creatinine Ratio (10-20) Glucose (70-99(Fasting)) mg/dl Calcium (8.6-10.3) mg/dl Phosphorus (2.5-4.9) mg/dl Magnesium (1.7-2.4) mg/dl Total Bilirubin (0.2-1.0) mg/dl Direct Bilirubin (0-0.2) mg/dl AST (13-39) U/L ALT (7-52) U/L Alkaline Phosphatase (34-104) U/L Total Protein (6.0-8.3) gm/dl Albumin (3.4-5.0) gm/dl Globulin (2.5-4.0) gm/dl Albumin/Globulin Ratio (0.9-2) Lipase (11-82) U/L Urine Color Dark Yellow Urine Appearance Clear (Clear) Urine pH 5.5 (4.5-7.5) Ur Specific [place] 1.009 (1.000-1.030) Urine Protein Negative (Negative) Urine Glucose (UA) Negative (Negative) Urine Ketones Negative (Negative) Urine Blood Negative (Negative) Urine Nitrite Negative (Negative) Urine Bilirubin 1+ H (Negative) Urine Urobilinogen Negative (Negative) Ur Leukocyte Esterase Negative (Negative) SARS-CoV-2, RNA, NAAT (NEGATIVE) Administered Medications Artificial Tears (Artificial Tears) 1 drops OP Q4H PRN PRN Reason: DRY EYES Stop: 06/09/23 17:29 Last Admin: 05/10/23 20:38 Dose: 1 drops Documented By: DM Cholestyramine Resin (Cholestyramine Light 4 Gm Pkt) 4 gm PO BID@1000,2200 BRENNON Stop: 06/09/23 21:59 Last Admin: 05/10/23 21:22 Dose: 4 gm Documented By: CHARLI Diphenhydramine HCl (Diphenhydramine Capsule 25 Mg Cap) 25 mg PO Q6H PRN PRN Reason: Itching Stop: 06/09/23 21:30 Last Admin: 05/11/23 01:05 Dose: 25 mg Documented By: KACEY Enoxaparin Sodium (Enoxaparin Inj 40 Mg/0.4 Ml Syr) 40 mg SQ Q24H BRENNON Stop: 06/09/23 20:59 Last Admin: 05/10/23 20:12 Dose: 40 mg Documented By: CHARLI Insulin Aspart (Insulin Aspart Per Unit Charge) 0 units SC ACHS BRENNON Stop: 06/09/23 16:29 Last Admin: 05/10/23 21:22 Dose: 1 units Documented By: CHARLI Co-signed By: KACEY Admin: 05/10/23 17:04 Dose: 2 units Documented By: MARKEL Co-signed By: LIUDMILA Insulin Glargine (Lantus Per Unit Charge) 5 units SQ BID BRENNON Stop: 06/09/23 20:59 Last Admin: 05/10/23 21:18 Dose: 5 units Documented By: CHARLI Co-signed By: KACEY Levalbuterol HCl (Levalbuterol Hcl 0.63 Mg/3 Ml Neb) 0.63 mg INH Q6R PRN; Protocol PRN Reason: cough/wheezing/shortness of breath Stop: 06/09/23 17:16 Last Admin: 05/10/23 19:34 Dose: 0.63 mg Documented By: DWIGHT Fisher~Non-Formulary (Patient's Own Med) 1 each NA Q12H BRENNON Stop: 06/09/23 18:14 Last Admin: 05/10/23 20:08 Dose: 1 mcg Documented By: CHARLI Valacyclovir HCl (Valacyclovir Hcl 500 Mg Tablet) 500 mg PO Q24H BRENNON Stop: 06/09/23 18:59 Last Admin: 05/10/23 20:02 Dose: 500 mg Documented By: CHARLI Discontinued Medications Amlodipine Besylate (Amlodipine Besylate 5 Mg Tab) 5 mg PO NOW STA Stop: 05/10/23 15:27 Last Admin: 05/10/23 15:55 Dose: 5 mg Documented By: MARKEL Cetirizine HCl (Cetirizine Hcl 10 Mg Tablet) 20 mg PO BID BRENNON Stop: 06/09/23 20:59 Last Admin: 05/10/23 20:13 Dose: 20 mg Documented By: CHARLI Famotidine (Famotidine 40 Mg Tablet) 40 mg PO BID BRENNON Stop: 06/09/23 20:59 Last Admin: 05/10/23 20:13 Dose: 40 mg Documented By: CHARLI Hydroxyzine HCl (Hydroxyzine Hcl 10 Mg Tab) 20 mg PO BID BRENNON Stop: 06/09/23 20:59 Last Admin: 05/10/23 20:12 Dose: 20 mg Documented By: CHARLI Sodium Chloride (Nss 1000ml) 1,000 mls @ 999 mls/hr IV .Q1H1M ONE Stop: 05/10/23 10:05 Last Infusion: 05/10/23 11:50 Dose: 0 mls/hr Documented By: Admin: 05/10/23 09:29 Dose: 999 mls/hr Documented By: KRZYSZTOF Famotidine (Pepcid 20mg Iv Push) 20 mg in 5 mls @ 2.5 mls/min IV NOW STA Stop: 05/10/23 09:06 Last Admin: 05/10/23 09:29 Dose: 2.5 mls/min Documented By: KRZYSZTOF Magnesium Sulfate/Dextrose (Magnesium Sulfate / D5w) 1 gm in 100 mls @ 100 mls/hr IV Q1H BRENNON Stop: 05/10/23 12:23 Last Infusion: 05/10/23 14:19 Dose: 0 mls/hr Documented By: Admin: 05/10/23 12:39 Dose: 100 mls/hr Documented By: Infusion: 05/10/23 12:39 Dose: 0 mls/hr Documented By: Admin: 05/10/23 11:29 Dose: 100 mls/hr Documented By: MARKEL Phytonadione 10 mg/ Dextrose 51 mls @ 102 mls/hr IV ONE ONE Stop: 05/10/23 17:29 Last Infusion: 05/10/23 18:23 Dose: 0 mls/hr Documented By: Admin: 05/10/23 17:26 Dose: 102 mls/hr Documented By: DAMIR Magnesium Sulfate/Dextrose (Magnesium Sulfate / D5w) 1 gm in 100 mls @ 50 mls/hr IV Q2H BRENNON Stop: 05/10/23 21:29 Last Infusion: 05/10/23 21:41 Dose: 0 mls/hr Documented By: Admin: 05/10/23 19:41 Dose: 50 mls/hr Documented By: Infusion: 05/10/23 19:41 Dose: 50 mls/hr Documented By: Admin: 05/10/23 18:12 Dose: 50 mls/hr Documented By: DAMIR Losartan Potassium (Losartan Potassium 50 Mg Tab) 100 mg PO NOW STA Stop: 05/10/23 15:17 Last Admin: 05/10/23 16:14 Dose: 100 mg Documented By: MARKEL Morphine Sulfate (Morphine Sulfate 2 Mg/Ml Carp) 1 mg IV Q6H PRN PRN Reason: Pain(5+) or headache Stop: 05/24/23 20:44 Last Admin: 05/10/23 21:18 Dose: 1 mg Documented By: CHARLI Ondansetron HCl (Ondansetron Inj 2 Mg/Ml 2 Ml Vial) 4 mg IV NOW STA Stop: 05/10/23 09:06 Last Admin: 05/10/23 09:29 Dose: 4 mg Documented By: KRZYSZTOF Discharge Plan Visit Data Chief Complaint: Abnormal Labs/Diagnostic Testing Stated Complaint: ABNORMAL LABS, HEADACHE ED Provider: Sunny Ramirez Discharge Problem: Painless jaundice, Immunodeficiency disorder, common variable, Elevated LFTs, Hypomagnesemia, Dilation of pancreatic duct, Dilated bile duct Patient Disposition: Admitted As Inpatient Discharge Instructions Interventions: ED Discharge Assessment Last Done: 05/10/23 17:08
[2023-05-10 09:42] LABS: Basophils # (auto) 0.13 K/uL (0-0.2); Basophils % (auto) 2.1 %; Eosinophils # (auto) 0.45 K/uL (0-0.50); Eosinophils % (auto) 7.2 %; Hematocrit (blood only) 33.2 % (37.0-47.0); Hemoglobin 11.7 g/dl (12.0-16.0); Immature Granulocytes # (auto) 0.08 K/uL (0.01-0.20); Immature Granulocytes % (auto) 1.3 %; Lymphocytes # (auto) 1.01 K/uL (1.2-3.4); Lymphocytes % (auto) 16.2 %; Mean Corpuscular Hgb Conc 35.2 g/dL (32.0-36.0); Mean Corpuscular Volume 87.8 fL (80.0-100.0); Mean Platelet Volume 10.6 fL (9.4-12.4); Monocytes # (auto) 0.54 K/uL (0.11-0.59); Monocytes % (auto) 8.7 %; Neutrophils # (auto) 4.01 K/uL (1.40-6.50); Neutrophils % (auto) 64.5 %; Platelet Count 348 K/uL (130-400); RDW Coefficient of Variation 17.3 % (11.5-14.5); RDW Standard Deviation 55.4 fL (36.4-46.3); Red Blood Count 3.78 M/uL (4.20-5.40); White Blood Count 6.22 K/ul (4.8-10.8)
[2023-05-10 09:55] LABS: Albumin Globulin Ratio 1.1 (0.9-2); Albumin Level 3.9 gm/dl (3.4-5.0); Bilirubin Direct 4.3 mg/dl (0-0.2); Bilirubin,Total 7.1 mg/dl (0.2-1.0); Calcium 9.1 mg/dl (8.6-10.3); Creatinine Clr Calc Pharmacy 57.9 ml/min; Est GFR (African American) 82.2 ml/min; Est GFR (Non-African American) 70.9 ml/min; Globulin 3.5 gm/dl (2.5-4.0); Magnesium 1.1 mg/dl (1.7-2.4); Phosphorus 3.4 mg/dl (2.5-4.9); Potassium 3.6 mmol/L (3.5-5.1); Total Protein 7.4 gm/dl (6.0-8.3)
[2023-05-10 10:15] LABS: Appearance Urine Clear (Clear); Blood Urine Negative (Negative); Color Urine Dark Yellow; Glucose Urine UA Negative (Negative); Ketones Urine Negative (Negative); Leukocyte Esterase Urine Negative (Negative); Nitrite Urine Negative (Negative); Protein Urine Negative (Negative); Specific Gravity Urine 1.009 (1.000-1.030); Urobilinogen Urine Negative (Negative); pH Urine 5.5 (4.5-7.5)
[2023-05-10 10:19] LABS: Bilirubin Urine 1+ (Negative)
[2023-05-10] MEDS: MAGNESIUM SULFATE / D5W 1 GM/100 ML BAG IV SCH ×4 (11:29→19:41)
--- NOTE | 2023-05-10 13:31 | Electrocardiogram Report ---
Test Reason : Blood Pressure : / mmHG Vent. Rate : 077 BPM Atrial Rate : 077 BPM P-R Int : 162 ms QRS Dur : 088 ms QT Int : 376 ms P-R-T Axes : 073 028 046 degrees QTc Int : 425 ms Normal sinus rhythm Low voltage QRS Abnormal ECG When compared with ECG of 15-AUG-2022 12:09, Questionable change in QRS axis Confirmed by Mikey Wen ([id number]) on 05/10/2023 1:30:35 PM Referred By: Slim Rhodes Confirmed By:Christiano Wen
--- NOTE | 2023-05-10 14:17 | History & Physical Report ---
Date of Service May 10, 2023 Assessment & Plan (1) Elevated LFTs: Plan: -Admit to med/tele -Currently stable -Outpatient labs and CT imaging reveal significantly elevated LFT's with CBD and pancreatic duct obstruction/dilation which will require non-emergent ERCP at this time -[facility] would not accept for transfer at this time as the patient is currently stable and non-infectious, can consider non-emergent transfer on Saturday if no GI coverage for ERCP here -[facility] to follow and assist with coordination -If needed, could speak with the patient's immunology for transfer to [facility] if she were to decompensate and can't go to [facility] or [facility] -Continue to trend LFT's daily -Low fat, DMII diet -Hold atorvastatin and oral antihyperglycemics with elevated LFT's -Will obtain INR on admission -BL SCD's and SQ lovenox for DVT PPX -AM CBC, CMP, Mag, PT/INR (2) Elevated INR: Plan: -INR ordered on admission is elevated at 2.6 -No signs of bleeding -Will give 10 mg IV Vit K now to rule out vit K deficiency -Monitor am INR (3) Hypomagnesemia: Plan: -Noted to be 1.1 today -Likely due to her recent poor oral intake -S/P 2 bags of 1 gm IV mag-sulfate in the ED -Will give an additional 2gm IV mag sulfate on admission -Monitor daily mag levels (4) Bronchiectasis: Plan: -Stable on RA -Continue home breathing treatments and pulm hygiene (5) SVT (supraventricular tachycardia): Plan: -Stable -Monitor on tele (6) Immunodeficiency disorder, common variable: Plan: -Hold SQ Hizentra for now per her Immunology team -Continue prophylactic Valtrex (7) Hyperlipidemia: Plan: -Hold statin with elevated LFT's (8) Essential hypertension: Plan: -Stable -Conitnue losartan and amlodipine (9) Diabetes mellitus: Plan: -Hold oral regimen -Monitor BSG ACHS, goal is 110-140 -5 untis lantus BID, CF 50, and CR 15 ACHS -DMII and low fat diet -Adjust regimen as needed Plan The patient was discussed with Dr. Keen at the time of the admission History of Present Illness Chief Complaint: Painless Jaundice Primary Care Provider: Slim Rhodes DO Jackson is a 67 year old female with a PMH significant for IGG deficiency, bronchiectasis, SVT, ADILIA, DM II, HTN, and hyperlipidemia who presented to the [facility] ED on 05/10/23 at the recommendation of her PCP for abnormal outpatient labs and CT findings. The patient reportedly saw her PCP yesterday due to itching. Her PCP obtained outpatient labs and CT of the chest WO con + CT abd/pelvis w/IV con. She was noted to have a total bili of 6.9, T100, ALT 81, Alk phos of 126, CRP of 2.50, ESR of 101. CT's were significant for stable and benign pulmonary nodules, diffuse intrahepatic and extrahepatic biliary duct dilation, new since last CT in 08/2022, abrupt tapering of the distal CBD in the pancreatic head, diffuse pancreatic duct dilation, a 3 cm lesion in the region of the pancreatic duct and common bile duct tapering is faintly hyperenhancing compared to the remainder of the pancreatic parenchyma, and may represent a mass or fibrosis, multiple cystic lesions throughout the pancreas. In the ED today the patient's vitals have been stable, she has been afebrile. Labs to day are significant for mag of 1.1, total bili of 7.1, direct bili of 4.3, AST of 97, ALT of 76, alk phos of 124, lipase of 200, negative UA and covid 19 negative. There is currently no GI coverage at [facility] over the weekend for possible ERCP. The ED spoke to the GI team at [facility] who said that they would not perform an ERCP over the weekend at this time as the patient is stable and not infectious. They recommended monitoring the patient here for possible ERCP when we have coverage on Saturday. If her LFT's would continue to worsen they would re-consider transfer at that time. Prior to admission the patient was given 2 bags of 1gm IV mag-sulfate, 20 mg Iv famotidine, 4 mg IV zofran, and 1L NSS. At the time of the exam the patient was sitting in bed in no acute distress with her sitting bedside, history was obtained from both. They state that the patient was getting regularly scheduled infusions of Cuvitru for years without issue. She had Covid 19 in February of this year but did not require hospitalization. Since having covid she has developed significant itching and infusion site reactions with both Cuvitru and after a trial of Xembify by her Immunology team at [facility]. She has been having ongoing itching, along with approximately 8 pounds of weight loss and now painless jaundice. Her immunology team spoke with her PCP to coordinate outpatient labs and CT imaging as described above. The patient denies recent fever, chills, chest pain, cough, abd pain, nausea, vomiting, dysuria, hematuria, melena, bloody BM's, LE swelling, and recent trauma. Of note, the patient has been experiencing loss of appetite and has been having dark urine and mary ann colored stool. I explained that at this time we will be admitting her to our service for further monitoring, including trending her LFT's. We will get [facility] on board to help coordinate as they should have someone conservator artifacts on Saturday or Saturday to perform a routine ERCP. If needed, the paient may need to be transferred to [facility] for emergent ERCP if she were to decompensate. Her STEAM DRIER OPERATOR at [facility], Saranya Fisher, told them that if needed they could try and coordinate a transfer down to [facility] for emergent ERCP if needed as well. The patient has been starting on loading doses of SQ Hizentra by her immunologists q3d instead of her previous infusions due to the recent reactions. The patient explains that her Net Developer Programmer said they could hold the Hizentra for now, until she is stable from her current illness. The patient is a full code and would want her to make medical decisions for her if she could not make them herself. Please refer to Dr. Keen's attestation for any changes to the treatment plan Allergies Allergy/AdvReac Type Severity Reaction Status Date / Time glycine [From Cuvitru] Allergy Intermediate Rash Verified 05/10/23 14:38 immune globulin,alpha (IgA) Allergy Intermediate Rash Verified 05/10/23 14:38 greater than 50 mcg/mL [From Cuvitru] immune globulin,gamma (IgG) Allergy Intermediate Rash Verified 05/10/23 14:38 human [From Cuvitru] nitrofurantoin Allergy Mild Rash Verified 05/10/23 14:38 meperidine AdvReac Severe N/V Verified 05/10/23 14:38 nalbuphine AdvReac Severe Severe Verified 05/10/23 14:38 vomiting oxycodone [From Percocet] AdvReac Severe N/V Verified 05/10/23 14:38 semaglutide [From Ozempic] AdvReac Severe Severe GI Verified 05/10/23 14:38 symptoms tramadol AdvReac Severe N/V Verified 05/10/23 14:38 Home Medications Medication Instructions Recorded Confirmed Type ondansetron HCl 4 mg tablet 4 mg PO Q6H PRN nausea and 03/26/22 05/10/23 Rx vomiting #20 tabs Lactobacillus rhamnosus GG 10 1 cap PO QAM 04/19/22 05/10/23 History billion cell capsule (Culturelle) cyanocobalamin (vitamin B-12) 1,000 mcg PO DAILY #30 tabs 04/19/22 05/10/23 Rx 1,000 mcg tablet mupirocin 2 % topical ointment 1 applic topical BID PRN Skin 04/19/22 05/10/23 History Irritation montelukast 10 mg tablet 10 mg PO QAM #90 tabs 09/21/22 05/10/23 Rx omeprazole 40 mg capsule,delayed 40 mg PO DAILY #90 caps 09/21/22 05/10/23 Rx release levalbuterol tartrate 45 2 inh inhalation Q4H PRN shortness 10/01/22 05/10/23 Rx mcg/actuation aerosol inhaler of breath or wheezing #3 Inhalers (Xopenex HFA) levalbuterol HCl 0.63 mg/3 mL 0.63 mg (3 mL) inhalation Q6H PRN 10/04/22 05/10/23 Rx solution for nebulization cough/wheezing/shortness of breath #180 mL blood sugar diagnostic #100 ea 10/22/22 05/09/23 Rx desloratadine 5 mg tablet 5 mg PO QAM #90 tabs 01/03/23 05/10/23 Rx (Clarinex) losartan 100 mg tablet 100 mg PO QAM #90 tabs 04/01/23 05/10/23 Rx alogliptin 25 mg tablet 25 mg PO DAILY 04/05/23 05/10/23 History cyclosporine 0.05 % eye drops in a 1 drp ophthalmic (eye) Q12H 04/05/23 05/10/23 History dropperette fluticasone propionate 93 1 spray intranasal Q12H 04/05/23 05/10/23 History mcg/actuation breath activated aerosol (Xhance) metformin 750 mg tablet,extended 1,500 mg PO DAILY 04/05/23 05/10/23 History release 24 hr umeclidinium 62.5 mcg-vilanterol 1 inh inhalation DAILY #120 ea 04/30/23 05/10/23 Rx 25 mcg/actuation powdr for inhalation (Anoro Ellipta) amlodipine 2.5 mg tablet 5 mg PO DAILY #30 tabs 05/09/23 05/10/23 Rx cetirizine 10 mg tablet 10 mg PO .COMPLEX 05/09/23 05/10/23 History famotidine 40 mg tablet 40 mg PO BID 05/09/23 05/10/23 History hydroxyzine HCl 10 mg tablet 20 mg PO BID 05/09/23 05/10/23 History epinephrine 0.3 mg/0.3 mL 0.3 ml IM DIRECTED PRN allergic 05/10/23 05/10/23 History injection, auto-injector reactions fluticasone propionate 93 1 spray intranasal BID 05/10/23 05/10/23 History mcg/actuation breath activated aerosol (Xhance) valacyclovir 500 mg tablet 0 mg PO Q2D 05/10/23 05/10/23 History (Valtrex) Past Med/Surg History Medical History Allergic rhinitis Anemia Asthma Cochlear implant in place Left Cough Diabetes mellitus Essential hypertension Frequent sinus infections Gastro-esophageal reflux disease without esophagitis Hearing loss History of cataract R/L Hx of supraventricular tachycardia Hyperlipidemia Immunodeficiency disorder, common variable on IVIG injections Iron deficiency anemia Pseudomonas aeruginosa colonization Nasal - reason for tobramycin PRN Surgical History Family history of reaction to anesthesia Mother- "heart stopped in surgery" with hysterectomy in 1970s. H/O arthroscopic knee surgery Right H/O section H/O lymph node biopsy History of ear surgery Cochlear implant surgery x2 History of esophagogastroduodenoscopy (EGD) S/P bunionectomy Right S/P cholecystectomy S/P colonoscopy 2020 S/P dilatation and curettage S/P hip replacement Left JUSTIN (12/10/16) S/P hysterectomy S/P myringotomy with insertion of tube S/P sinus surgery S/P tonsillectomy Status post right knee replacement (~08/2022) Family History Father Arthritis Asthma Stroke Sister Asthma Mother Stroke Pulmonary fibrosis Social History Smoking Status: Never smoker Second Hand Exposure: No; Do You Dip or Chew Tobacco: No; Hx Alcohol Use: No Hx Substance Use: No Preferred Language: Lao Communication Ability: Effective Communication Ability Comment: Cochlear implant and hearing aid Core Inserter Required: No Beliefs That Will Affect Care: None marital status: Current Living Situation: Spouse current occupational status: retired How many Children do You have: 1 Feels Safe at Home: Yes Dental Care, Regularly: Yes Physical Activity Frequency: 3-4 Times per Week Seatbelt Use: always Sunscreen Use: Yes Assistive Devices: Cane and Walker Physical Exam Physical Exam: Physical Exam: General: In no acute distress, stated age, well-nourished, non-toxic appearing HEENT: Normocephalic, atraumatic, BL scleral icterus, pupils around round, symmetrical, and reactive to light, moist mucus membranes, trachea midline, no thyromegaly Chest/Pulm: No respiratory distress, symmetrical chest expansion, expiratory wheezing throughout Cardiac: RRR, no murmurs noted Abdomen: Negative for ascites and bruising, normoactive bowel sounds, soft, non-tender to palpation throughout Musculoskeletal: Symmetrical and without signs of acute trauma, upper and lower extremities with full ROM, no atrophy, spasticity, or flaccidity Extremities: Radial, dorsalis pedis, and posterior tibial pulses are intact and symmetrical, no edema noted in the BL LE's Skin: Mild jaundice noted, no active rash Neuro: Alert and oriented to person, place, month, year, and president, no focal defects, CN II-XII tested and intact, finger to nose test negative, no tremors noted Psych: No acute distress, calm and cooperative during the exam Results & Data Results & Data Vital Signs (Past 12 Hours) Vital Signs Temp Pulse Pulse Resp BP BP Pulse Ox 05/10/23 11:54 90 16 154/75 H 97 05/10/23 10:19 75 05/10/23 09:21 98 05/10/23 08:27 36.3 C L 83 20 165/91 H 97 O2 Del Method 05/10/23 11:54 Room Air 05/10/23 10:19 05/10/23 09:21 Room Air 05/10/23 08:27 Room Air Laboratory Results Abnormal lab results 05/10/23 05/10/23 05/10/23 Range/Units 09:21 09:21 10:03 RBC 3.78 L (4.20-5.40) M/uL Hgb 11.7 L (12.0-16.0) g/dl Hct 33.2 L (37.0-47.0) % RDW Std Deviation 55.4 H (36.4-46.3) fL RDW Coeff of Beverly 17.3 H (11.5-14.5) % Lymph # (Auto) 1.01 L (1.2-3.4) K/uL Sodium 135 L (136-145) mmol/L Glucose 172 H (70-99(Fasting)) mg/dl Magnesium 1.1 L (1.7-2.4) mg/dl Total Bilirubin 7.1 H (0.2-1.0) mg/dl Direct Bilirubin 4.3 H (0-0.2) mg/dl AST 97 H (13-39) U/L ALT 76 H (7-52) U/L Alkaline Phosphatase 124 H (34-104) U/L Lipase 200 H (11-82) U/L Urine Bilirubin 1+ H (Negative) ECG Additional Comments: Normal sinus rhythm Low voltage QRS Abnormal ECG When compared with ECG of 15-AUG-2022 12:09, Questionable change in QRS axis Confirmed by Mikey Wen ([id number]) on 05/10/2023 1:30:35 PM Code Status & VTE Plan Code Status Full code Supervising Physician Co-Signing Physician Notes I personally saw and examined the patient. I verified all denis points and agree with Alfredo Dean PA-C with the following exceptions and/or additions: 67 year old female presents to the ER with painless jaundice and obstructing mass on outside CT O/E Jaundiced appearing with icteric sclera, HS RRR, no murmurs, Chest CTAB, Mild RUQ pain without guarding or rebound tenderness A/P Painless jaundice with obstructing mass - no WBC of fever to suggest cholangitis - no need for antibiotics. ER physician discussed with Hector and would not perform ERCP/EUS over the weekend regardless and discussed possible discharge for outpatient ERCP/EUS. No ERCP/EUS coverage here until Saturday - will consult gastroenterology to help co-ordinate whether she can have this here or need for transfer possibly Saturday to [facility]. Monitor LFTs and replace electrolytes daily in the meantime. Pruritus - this is not a histamine related process as discussed with the patient. Will d/c her anti-histamines as she is not on these for any other reason. diphenhydramine prescribed more for sedating effect PRN than anti- histamine. Start cholestyramine 4g PO BID to help with this, can be uptitrated as need but eventual treatment of this is ERCP. PG Care Time/CCT Total # of Minutes Spent Total Time Spent with Patient: Total time spent is greater than 50% in coordination of care (as documented) at patient's floor/unit and/or counseling patient: [place] [address] INT INP/OBS CARE 3/75MIN Patient Type Established Medical Decision Making High Complexity Diagnoses Elevated LFTs R79.89 Elevated INR R79.1 Hypomagnesemia E83.42 Bronchiectasis J47.9 SVT (supraventricular tachycardia) I47.1 Immunodeficiency disorder, common variable D83.9 Hyperlipidemia E78.5 Essential hypertension I10 Diabetes mellitus E11.9
[2023-05-10] MEDS ORDERED: GLUCAGON FOR INJ 1 MG VIAL SQ PRN (15:12)
[2023-05-10] MEDS ORDERED: GLUCOSE 10 TAB/TUBE PO PRN (15:12)
[2023-05-10] MEDS ORDERED: CARBOHYDRATES FOR HYPOGLYCEMIA PO PRN (15:12)
[2023-05-10] MEDS ORDERED: DEXTROSE 50% 50 ML SYRINGE IV PRN (15:12)
[2023-05-10] MEDS ORDERED: GLUCOSE 40% GEL 15 GM TUBE PO PRN (15:12)
[2023-05-10] MEDS ORDERED: LOSARTAN POTASSIUM 50 MG TAB PO STA (15:16)
[2023-05-10] MEDS ORDERED: amLODIPine BESYLATE 5 MG TAB PO STA (15:26)
[2023-05-10 16:08] LABS: INR 2.6 (0.9-1.1); Prothrombin Time 27.2 Seconds (9.0-12.0)
[2023-05-10] MEDS ORDERED: PHYTONADIONE 10 MG in DEXTROSE 5% 50 ML IV ONE (17:00)
[2023-05-10] MEDS: INSULIN ASPART PER UNIT CHARGE SC SCH ×2 (17:04→21:22)
[2023-05-10] MEDS ORDERED: ONDANSETRON 4 MG OD TAB PO PRN (17:17)
[2023-05-10] MEDS: LEVALBUTEROL HCL 0.63 MG/3 ML NEB INH PRN (19:34)
[2023-05-10] MEDS ORDERED: CELECOXIB 100 MG CAP PO PRN (19:54)
[2023-05-10] MEDS: valACYclovir HCL 500 MG TABLET PO SCH (20:02)
[2023-05-10] MEDS: [UNRECOGNIZED DRUG - OTHER] SCH (20:08)
[2023-05-10] MEDS: ENOXAPARIN INJ 40 MG/0.4 ML SYR SQ SCH (20:12)
[2023-05-10] MEDS: ARTIFICIAL TEARS OP PRN (20:38)
[2023-05-10] MEDS ORDERED: MoRPHine SULFATE 2 MG/ML CARP IV PRN (20:45)
[2023-05-10] MEDS ORDERED: CETIRIZINE HCL 10 MG TABLET PO SCH (21:00)
[2023-05-10] MEDS ORDERED: FAMOTIDINE 40 MG TABLET PO SCH (21:00)
[2023-05-10] MEDS ORDERED: FLUTICASONE PROPIONATE NA SPR 16 GM BTL SCH (21:00)
[2023-05-10] MEDS ORDERED: hydrOXYzine HCl 10 MG TAB PO SCH (21:00)
[2023-05-10] MEDS: LANTUS PER UNIT CHARGE SQ SCH (21:18)
[2023-05-10] MEDS: CHOLESTYRAMINE LIGHT 4 GM PKT PO SCH (21:22)
[2023-05-11] MEDS: diphenhydrAMINE Capsule 25 MG CAP PO PRN ×4 (01:05→21:33)
[2023-05-11 06:09] LABS: Basophils # (auto) 0.12 K/uL (0-0.2); Basophils % (auto) 1.9 %; Eosinophils # (auto) 0.46 K/uL (0-0.50); Eosinophils % (auto) 7.2 %; Hematocrit (blood only) 32.3 % (37.0-47.0); Hemoglobin 11.2 g/dl (12.0-16.0); Immature Granulocytes # (auto) 0.06 K/uL (0.01-0.20); Immature Granulocytes % (auto) 0.9 %; Lymphocytes # (auto) 1.29 K/uL (1.2-3.4); Lymphocytes % (auto) 20.2 %; Mean Corpuscular Hemoglobin 30.4 pg (25.0-34.0); Mean Corpuscular Hgb Conc 34.7 g/dL (32.0-36.0); Mean Corpuscular Volume 87.8 fL (80.0-100.0); Mean Platelet Volume 10.7 fL (9.4-12.4); Monocytes # (auto) 0.53 K/uL (0.11-0.59); Monocytes % (auto) 8.3 %; Neutrophils # (auto) 3.92 K/uL (1.40-6.50); Neutrophils % (auto) 61.5 %; Platelet Count 326 K/uL (130-400); RDW Coefficient of Variation 17.1 % (11.5-14.5); RDW Standard Deviation 54.5 fL (36.4-46.3); Red Blood Count 3.68 M/uL (4.20-5.40); White Blood Count 6.38 K/ul (4.8-10.8)
[2023-05-11 06:25] LABS: Albumin Globulin Ratio 1.1 (0.9-2); Albumin Level 3.5 gm/dl (3.4-5.0); BUN Creatinine Ratio 12.3 (10-20); Bilirubin,Total 8.1 mg/dl (0.2-1.0); Calcium 9.5 mg/dl (8.6-10.3); Creatinine Clr Calc Pharmacy 74.7 ml/min; Est GFR (African American) 100.2 ml/min; Est GFR (Non-African American) 86.4 ml/min; Globulin 3.1 gm/dl (2.5-4.0); Magnesium 1.9 mg/dl (1.7-2.4); Potassium 3.7 mmol/L (3.5-5.1); Total Protein 6.6 gm/dl (6.0-8.3)
[2023-05-11 06:40] LABS: INR 1.1 (0.9-1.1); Partial Thromboplastin Ratio 1.2; Partial Thromboplastin Time 32.5 Seconds (21.0-31.0); Prothrombin Time 12.3 Seconds (9.0-12.0)
[2023-05-11] MEDS: oxyCODONE HCL IR 5 MG TAB (IMMEDIATE RELEASE) PO PRN ×2 (07:49→17:37)
[2023-05-11] MEDS: INSULIN ASPART PER UNIT CHARGE SC SCH ×4 (08:59→20:26)
[2023-05-11 09:18] LABS: Estimated Average Glucose 157 mg/dl; Hemoglobin A1C 7.1 % (4.5-5.6)
[2023-05-11] MEDS: LANTUS PER UNIT CHARGE SQ SCH ×2 (10:12→20:26)
[2023-05-11] MEDS: amLODIPine BESYLATE 5 MG TAB PO SCH (10:12)
[2023-05-11] MEDS: ADVANCED PROBIOTIC 1250 MG CAPSULE PO SCH (10:14)
[2023-05-11] MEDS: LOSARTAN POTASSIUM 50 MG TAB PO SCH (10:14)
[2023-05-11] MEDS: UMECLIDINIUM/VILANTEROL 62.5/25MCG 7 PUFFS/INHALER INH SCH (10:15)
[2023-05-11] MEDS: MONTELUKAST SODIUM 10 MG TABLET PO SCH (10:15)
[2023-05-11] MEDS: [UNRECOGNIZED DRUG - OTHER] SCH ×2 (10:15→20:26)
[2023-05-11] MEDS: PANTOprazole 40 MG TAB PO SCH (10:16)
[2023-05-11] MEDS: CHOLESTYRAMINE LIGHT 4 GM PKT PO SCH ×2 (10:17→21:33)
[2023-05-11] MEDS: ARTIFICIAL TEARS OP PRN ×2 (10:18→12:25)
[2023-05-11] MEDS: IMMUNE GLOBULIN SCH ×2 (11:00→11:01)
--- NOTE | 2023-05-11 11:59 | Gastrointestinal Consultation ---
Date of Consultation May 11, 2023 Assessment & Plan (1) Painless jaundice: Patient has evidence of painless obstructive jaundice unfortunately she also has dilation of her pancreatic duct with a 3 cm enhancing or lack of enhancing area of the pancreatic head that would be concerning for a malignancy causing malignant obstruction. I called and discussed this patient with her route cdl driver at [facility], he would support empiric antibiotics to cover gram-negative's in the interest given the fact that she has immunodeficiency. She does not have signs or symptoms of cholangitis at this time, therefore urgent ERCP is not likely indicated. We will should have biliary coverage starting on Saturday which time we can tentatively schedule her for an EUS ERCP at that juncture. If she were develop an acute need for ERCP, unfortunately she would require transfer Recs: Symptom control with antiemetics Diet as tolerated IV antibiotics to cover gram-negative's and anaerobes MEDICAL STAFF SERVICES MANAGER.o. after midnight on Saturday night History of Present Illness Requesting Physician: Hospitalist Attending Physician: Teresita Clayton MD History of Present Illness This is a pleasant 67-year-old female who has a history of common variable immunodeficiency and takes subcutaneous immunoglobulins who unfortunately had COVID back in February and since that time during her treatments and then afterwards she has had intermittent pruritus. At first this was thought to be a reaction from her medication and then after laboratory investigation, she was f ound to have a dramatic bilirubin and direct evaluation for that. She states over the last several months she has had less of an appetite itching and has noticed that her skin is turned yellow blood work performed and ordered by [facility] showed a bilirubin of 6.5 AST of 102 alkaline phosphatase of [address] scan was performed at [facility] and revealed diffuse intra and extrahepatic ductal dilatation 3 mm bile duct, she had abrupt tapering in the distal CBD in the pancreatic head there was diffuse pancreatic ductal dilatation up to 7 mm with abrupt tapering of the main duct at the ampulla. 3 cm lesion in the head of the region of the pancreatic duct and common bile duct that was faintly hyperenhancing concerning for a mass. She is been admitted to the hospital, unfortunately was no biliary coverage this weekend she admits to chills but no fevers. She is having nausea without emesis. Poor appetite and sent for a subcutaneous injection of her IVIG today. She has noticed since COVID as well as the same time that she has had decreasing energy and anorexia. Allergies Allergy/AdvReac Type Severity Reaction Status Date / Time glycine [From Cuvitru] Allergy Intermediate Rash Verified 05/10/23 14:38 immune globulin,alpha (IgA) Allergy Intermediate Rash Verified 05/10/23 14:38 greater than 50 mcg/mL [From Cuvitru] immune globulin,gamma (IgG) Allergy Intermediate Rash Verified 05/10/23 14:38 human [From Cuvitru] nitrofurantoin Allergy Mild Rash Verified 05/10/23 14:38 meperidine AdvReac Severe N/V Verified 05/10/23 14:38 nalbuphine AdvReac Severe Severe Verified 05/10/23 14:38 vomiting oxycodone [From Percocet] AdvReac Severe N/V Verified 05/10/23 14:38 semaglutide [From Ozempic] AdvReac Severe Severe GI Verified 05/10/23 14:38 symptoms tramadol AdvReac Severe N/V Verified 05/10/23 14:38 Home Medications Medication Instructions Recorded Confirmed Type ondansetron HCl 4 mg tablet 4 mg PO Q6H PRN nausea and 03/26/22 05/10/23 Rx vomiting #20 tabs Lactobacillus rhamnosus GG 10 1 cap PO QAM 04/19/22 05/10/23 History billion cell capsule (Culturelle) cyanocobalamin (vitamin B-12) 1,000 mcg PO DAILY #30 tabs 04/19/22 05/10/23 Rx 1,000 mcg tablet mupirocin 2 % topical ointment 1 applic topical BID PRN Skin 04/19/22 05/10/23 History Irritation montelukast 10 mg tablet 10 mg PO QAM #90 tabs 09/21/22 05/10/23 Rx omeprazole 40 mg capsule,delayed 40 mg PO DAILY #90 caps 09/21/22 05/10/23 Rx release levalbuterol tartrate 45 2 inh inhalation Q4H PRN shortness 10/01/22 05/10/23 Rx mcg/actuation aerosol inhaler of breath or wheezing #3 Inhalers (Xopenex HFA) levalbuterol HCl 0.63 mg/3 mL 0.63 mg (3 mL) inhalation Q6H PRN 10/04/22 05/10/23 Rx solution for nebulization cough/wheezing/shortness of breath #180 mL blood sugar diagnostic #100 ea 10/22/22 05/09/23 Rx desloratadine 5 mg tablet 5 mg PO QAM #90 tabs 01/03/23 05/10/23 Rx (Clarinex) losartan 100 mg tablet 100 mg PO QAM #90 tabs 04/01/23 05/10/23 Rx alogliptin 25 mg tablet 25 mg PO DAILY 04/05/23 05/10/23 History cyclosporine 0.05 % eye drops in a 1 drp ophthalmic (eye) Q12H 04/05/23 05/10/23 History dropperette fluticasone propionate 93 1 spray intranasal Q12H 04/05/23 05/10/23 History mcg/actuation breath activated aerosol (Xhance) metformin 750 mg tablet,extended 1,500 mg PO DAILY 04/05/23 05/10/23 History release 24 hr umeclidinium 62.5 mcg-vilanterol 1 inh inhalation DAILY #120 ea 04/30/23 05/10/23 Rx 25 mcg/actuation powdr for inhalation (Anoro Ellipta) amlodipine 2.5 mg tablet 5 mg PO DAILY #30 tabs 05/09/23 05/10/23 Rx cetirizine 10 mg tablet 10 mg PO .COMPLEX 05/09/23 05/10/23 History famotidine 40 mg tablet 40 mg PO BID 05/09/23 05/10/23 History hydroxyzine HCl 10 mg tablet 20 mg PO BID 05/09/23 05/10/23 History epinephrine 0.3 mg/0.3 mL 0.3 ml IM DIRECTED PRN allergic 05/10/23 05/10/23 History injection, auto-injector reactions fluticasone propionate 93 1 spray intranasal BID 05/10/23 05/10/23 History mcg/actuation breath activated aerosol (Xhance) valacyclovir 500 mg tablet 0 mg PO Q2D 05/10/23 05/10/23 History (Valtrex) Patient History Medical History Allergic rhinitis Anemia Asthma Cochlear implant in place Left Cough Diabetes mellitus Essential hypertension Frequent sinus infections Gastro-esophageal reflux disease without esophagitis Hearing loss History of cataract R/L Hx of supraventricular tachycardia Hyperlipidemia Immunodeficiency disorder, common variable on IVIG injections Iron deficiency anemia Pseudomonas aeruginosa colonization Nasal - reason for tobramycin PRN Surgical History Family history of reaction to anesthesia Mother- "heart stopped in surgery" with hysterectomy in 1970s. H/O arthroscopic knee surgery Right H/O section H/O lymph node biopsy History of ear surgery Cochlear implant surgery x2 History of esophagogastroduodenoscopy (EGD) S/P bunionectomy Right S/P cholecystectomy S/P colonoscopy 2020 S/P dilatation and curettage S/P hip replacement Left JUSTIN (12/10/16) S/P hysterectomy S/P myringotomy with insertion of tube S/P sinus surgery S/P tonsillectomy Status post right knee replacement (~08/2022) Family History Father Arthritis Asthma Stroke Sister Asthma Mother Stroke Pulmonary fibrosis Social History Smoking Status: Never smoker Second Hand Exposure: No; Do You Dip or Chew Tobacco: No; Hx Alcohol Use: No Hx Substance Use: No Preferred Language: Albanian Communication Ability: Effective Communication Ability Comment: Cochlear implant and hearing aid Continuity Person Required: No Beliefs That Will Affect Care: None marital status: Current Living Situation: Spouse current occupational status: retired How many Children do You have: 1 Feels Safe at Home: Yes Dental Care, Regularly: Yes Physical Activity Frequency: 3-4 Times per Week Seatbelt Use: always Sunscreen Use: Yes Assistive Devices: Cane and Walker Physical Exam Physical Exam: Oriented x3 alert and no apparent distress Heart is regular CTA BL Normal active bowel sounds soft mild tenderness in the right upper quadrant No peripheral edema Jaundiced skin Neurologically intact Results & Data Vital Signs (Past 12 Hours) Vital Signs Temp Pulse Pulse Resp BP Pulse Ox O2 Del Method 05/11/23 07:55 Room Air 05/11/23 07:53 36.6 C 61 18 151/75 H 97 Room Air 05/11/23 05:49 58 L 05/11/23 05:13 36.7 C 63 18 137/67 96 Room Air Laboratory Results As above
[2023-05-11] MEDS: ONDANSETRON INJ 2 MG/ML 2 ML VIAL IV PRN (12:05)
[2023-05-11] MEDS ORDERED: CEFEPIME 1,000 MG in SYRINGE 0 ML IV SCH (14:45)
[2023-05-11] MEDS: SODIUM CHLORIDE 0.9% 1000ML 1,000 ML IV SCH (15:10)
--- NOTE | 2023-05-11 15:21 | Hospitalist Progress Note ---
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 She was then found to have elevated liver function and a CT scan of the abdomen was done which showed evidence of diffuse intra and extrahepatic ductal dilatation and a 3 cm lesion in the head of the pancreas. Patient was asked to come to the hospital for further evaluation. Gastroenterology has been consulted, there is no urgent indication for ERCP, however if the patient deteriorates may need to be transferred. Tentatively ERCP scheduled for Saturday. (2) Elevated LFTs: Plan: -Outpatient labs and CT imaging reveal significantly elevated LFT's with CBD and pancreatic duct obstruction/dilation which will require non-emergent ERCP at this time -Payam Young would not accept for transfer at this time as the patient is currently stable and non-infectious, can consider non-emergent transfer on Saturday if no GI coverage for ERCP here -Will consult Payam ELAM here to follow and assist with coordination -If needed, could speak with the patient's immunology for transfer to [facility] if she were to decompensate and can't go to [place] or [place] -Continue to trend LFT's daily -Low fat, DMII diet -Hold atorvastatin and oral antihyperglycemics with elevated LFT's Appreciate GI recommendations. (3) Elevated INR: Plan: -INR ordered on admission is elevated at 2.6 -No signs of bleeding -Monitor am INR (4) Hypomagnesemia: Plan: Replace (5) Bronchiectasis: Plan: -Stable on RA -Continue home breathing treatments and pulm hygiene (6) SVT (supraventricular tachycardia): Plan: -Stable -Monitor on tele (7) Immunodeficiency disorder, common variable: Plan: -Hold SQ Hizentra for now per her Immunology team -Continue prophylactic Valtrex (8) Hyperlipidemia: Plan: -Hold statin with elevated LFT's (9) Essential hypertension: Plan: -Stable -Conitnue losartan and amlodipine (10) Diabetes mellitus: Plan: -Hold oral regimen -Monitor BSG ACHS, goal is 110-140 -5 untis lantus BID, CF 50, and CR 15 ACHS -DMII and low fat diet -Adjust regimen as needed Plan Continue to monitor here in the hospital, if there is any sign of ascending cholangitis, patient may not be need to transferred Admission and Anticipated Discharge Date Admission Date: May 10, 2023 Results & Data Results & Data Vital Signs (Past 12 Hours) Vital Signs Temp Pulse Pulse Resp BP Pulse Ox O2 Del Method 05/11/23 11:55 97.7 F 59 L 20 154/81 H 97 Room Air 05/11/23 07:55 Room Air 05/11/23 07:53 97.9 F 61 18 151/75 H 97 Room Air 05/11/23 05:49 58 L 05/11/23 05:13 98.1 F 63 18 137/67 96 Room Air PG Care Time/CCT Total # of Minutes Spent Total Time Spent with Patient: Total time spent is greater than 50% in coordination of care (as documented) at patient's floor/unit and/or counseling patient: Coding Level of Care Code 29718 SUB INP/OBS CARE 2/35MIN Diagnoses Painless jaundice R17 Elevated LFTs R79.89 Elevated INR R79.1 Hypomagnesemia E83.42 Bronchiectasis J47.9 SVT (supraventricular tachycardia) I47.1 Immunodeficiency disorder, common variable D83.9 Hyperlipidemia E78.5 Essential hypertension I10 Diabetes mellitus E11.9 Time Spent (min) 35
[2023-05-11] MEDS ORDERED: PIPERACILLIN/TAZOBACTAM 4.5 GM (over 30 mins) IV ONE (15:30)
[2023-05-11] MEDS: valACYclovir HCL 500 MG TABLET PO SCH (19:12)
[2023-05-11] MEDS: LEVALBUTEROL HCL 0.63 MG/3 ML NEB INH PRN (19:31)
[2023-05-11] MEDS: ENOXAPARIN INJ 40 MG/0.4 ML SYR SQ SCH (20:25)
[2023-05-11] MEDS: PIPERACILLIN/TAZOBACTAM 4.5 GM CI (over 4 hours) IV SCH (20:25)
[2023-05-12] MEDS: SODIUM CHLORIDE 0.9% 1000ML 1,000 ML IV SCH ×2 (03:32→15:49)
[2023-05-12] MEDS: diphenhydrAMINE Capsule 25 MG CAP PO PRN ×3 (03:33→21:34)
[2023-05-12] MEDS: PIPERACILLIN/TAZOBACTAM 4.5 GM CI (over 4 hours) IV SCH ×3 (04:07→20:29)
[2023-05-12] MEDS: ONDANSETRON INJ 2 MG/ML 2 ML VIAL IV PRN ×2 (06:21→15:41)
[2023-05-12 07:28] LABS: Basophils # (auto) 0.09 K/uL (0-0.2); Basophils % (auto) 1.5 %; Eosinophils # (auto) 0.41 K/uL (0-0.50); Eosinophils % (auto) 6.7 %; Hematocrit (blood only) 32.1 % (37.0-47.0); Hemoglobin 11.1 g/dl (12.0-16.0); Immature Granulocytes # (auto) 0.05 K/uL (0.01-0.20); Immature Granulocytes % (auto) 0.8 %; Lymphocytes % (auto) 19.5 %; Mean Corpuscular Hemoglobin 30.7 pg (25.0-34.0); Mean Corpuscular Hgb Conc 34.6 g/dL (32.0-36.0); Mean Corpuscular Volume 88.9 fL (80.0-100.0); Monocytes # (auto) 0.44 K/uL (0.11-0.59); Monocytes % (auto) 7.1 %; Neutrophils # (auto) 3.97 K/uL (1.40-6.50); Neutrophils % (auto) 64.4 %; Platelet Count 334 K/uL (130-400); RDW Coefficient of Variation 17.2 % (11.5-14.5); Red Blood Count 3.61 M/uL (4.20-5.40); White Blood Count 6.16 K/ul (4.8-10.8)
[2023-05-12 07:41] LABS: Albumin Globulin Ratio 1.1 (0.9-2); Albumin Level 3.4 gm/dl (3.4-5.0); BUN Creatinine Ratio 9.6 (10-20); Bilirubin,Total 9.1 mg/dl (0.2-1.0); Calcium 9.6 mg/dl (8.6-10.3); Est GFR (African American) 73.8 ml/min; Est GFR (Non-African American) 63.7 ml/min; Globulin 3.2 gm/dl (2.5-4.0); Magnesium 1.5 mg/dl (1.7-2.4); Potassium 3.7 mmol/L (3.5-5.1); Total Protein 6.6 gm/dl (6.0-8.3)
[2023-05-12 07:48] LABS: INR 1.1 (0.9-1.1)
[2023-05-12] MEDS: INSULIN ASPART PER UNIT CHARGE SC SCH ×4 (08:37→20:25)
[2023-05-12] MEDS: LANTUS PER UNIT CHARGE SQ SCH ×2 (08:37→20:30)
[2023-05-12] MEDS: amLODIPine BESYLATE 5 MG TAB PO SCH (08:39)
[2023-05-12] MEDS: LOSARTAN POTASSIUM 50 MG TAB PO SCH (08:39)
[2023-05-12] MEDS: ADVANCED PROBIOTIC 1250 MG CAPSULE PO SCH (08:39)
[2023-05-12] MEDS: [UNRECOGNIZED DRUG - OTHER] SCH ×2 (08:40→20:30)
[2023-05-12] MEDS: MONTELUKAST SODIUM 10 MG TABLET PO SCH (08:40)
[2023-05-12] MEDS: UMECLIDINIUM/VILANTEROL 62.5/25MCG 7 PUFFS/INHALER INH SCH (08:40)
[2023-05-12] MEDS: PANTOprazole 40 MG TAB PO SCH (08:40)
[2023-05-12] MEDS: CHOLESTYRAMINE LIGHT 4 GM PKT PO SCH ×2 (09:29→21:34)
--- NOTE | 2023-05-12 10:23 | Gastroenterology Progress Note ---
Date of Service May 12, 2023 Assessment & Plan (1) Painless jaundice: Plan: Patient has evidence of painless obstructive jaundice unfortunately she also has dilation of her pancreatic duct with a 3 cm enhancing or lack of enhancing area of the pancreatic head that would be concerning for a malignancy causing malignant obstruction. I called and discussed this patient with her grass cutter at [facility], he would support empiric antibiotics to cover gram-negative's in the interest given the fact that she has immunodeficiency. She does not have signs or symptoms of cholangitis at this time, therefore urgent ERCP is not likely indicated. We will should have biliary coverage starting on Saturday which time we can tentatively schedule her for an EUS ERCP at that juncture. If she were develop an acute need for ERCP, unfortunately she would require transfer Recs: Symptom control with antiemetics Diet as tolerated IV antibiotics to cover gram-negative's and anaerobes CLIENT ADVISOR.o. after midnight on Saturday night EUS ERCP Saturday Admission and Anticipated Discharge Date Admission Date: May 10, 2023 Subjective Looks better this morning, no nausea is going for shower. Did start IV antibiotics yesterday. Physical Exam Physical Exam: Oriented x3 alert and no apparent distress Heart is regular CTA BL Normal active bowel sounds soft mild tenderness in the right upper quadrant No peripheral edema Jaundiced skin Neurologically intact Results & Data Vital Signs (Past 12 Hours) Vital Signs Temp Pulse Pulse Resp BP Pulse Ox O2 Del Method 05/12/23 07:45 36.9 C 58 L 18 137/78 97 Room Air 05/12/23 05:44 63 05/12/23 07:02 Room Air 05/12/23 03:25 36.8 C 62 16 121/66 95 Room Air 05/11/23 22:43 36.3 C L 59 L 16 102/60 97 Room Air
--- NOTE | 2023-05-12 13:18 | Hospitalist Progress Note ---
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 She was then found to have elevated liver function and a CT scan of the abdomen was done which showed evidence of diffuse intra and extrahepatic ductal dilatation and a 3 cm lesion in the head of the pancreas. Patient was asked to come to the hospital for further evaluation. Gastroenterology has been consulted, there is no urgent indication for ERCP, however if the patient deteriorates may need to be transferred. Tentatively ERCP scheduled for Saturday. (2) Elevated LFTs: Plan: -Outpatient labs and CT imaging reveal significantly elevated LFT's with CBD and pancreatic duct obstruction/dilation which will require non-emergent ERCP at this time -Tentatively plan is for EUS ERCP on Saturday -Continue to trend LFT's daily -Low fat, DMII diet -Hold atorvastatin and oral antihyperglycemics with elevated LFT's Appreciate GI recommendations. (3) Elevated INR: Plan: -No signs of bleeding -Monitor am INR (4) Hypomagnesemia: Plan: Replace (5) Bronchiectasis: Plan: -Stable on RA -Continue home breathing treatments and pulm hygiene (6) SVT (supraventricular tachycardia): Plan: -Stable -Monitor on tele (7) Immunodeficiency disorder, common variable: Plan: -Hold SQ Hizentra for now per her Immunology team -Continue prophylactic Valtrex (8) Hyperlipidemia: Plan: -Hold statin with elevated LFT's (9) Essential hypertension: Plan: -Stable -Conitnue losartan and amlodipine (10) Diabetes mellitus: Plan: -Hold oral regimen -Monitor BSG ACHS, goal is 110-140 -5 untis lantus BID, CF 50, and CR 15 ACHS -DMII and low fat diet -Adjust regimen as needed Plan Continue to monitor here in the hospital, if there is any sign of ascending cholangitis, patient may not be need to transferred Admission and Anticipated Discharge Date Admission Date: May 10, 2023 Subjective Patient seen and examined this morning, by the bedside, looks more cheerful denies any pains Review of Systems Review of Systems: All systems reviewed are negative, apart from the ones contained in the history. Physical Exam Physical Exam: The patient is awake, alert and oriented 3, well developed and well nourished, normocephalic and atraumatic, lying in bed and in no acute distress. HEENT--PERRL, EOMI, jaundice+++ Neck--supple. No JVD. No bruits. Thyroid normal, trachea midline, no adenopathy. Heart--normal S1 and S2. No murmurs, rubs or gallops. Lungs--clear bilaterally, no respiratory distress, no accessory muscle use. Abdomen--normal bowel sounds and soft. Mild epigastric and left sided abdominal pain Extremities--no cyanosis or clubbing. No edema. Dermatologic--normal skin turgor, normal color, no abnormal lymph nodes, no rash. Neurologic--cranial nerves II through XII grossly intact. Rheumatologic--normal range of motion. Psychiatric--normal affect. Results & Data Results & Data Vital Signs (Past 12 Hours) Vital Signs Temp Pulse Pulse Resp BP Pulse Ox O2 Del Method 05/12/23 10:58 97.9 F 63 20 132/71 94 Room Air 05/12/23 07:45 98.4 F 58 L 18 137/78 97 Room Air 05/12/23 05:44 63 05/12/23 07:02 Room Air 05/12/23 03:25 98.2 F 62 16 121/66 95 Room Air PG Care Time/CCT Total # of Minutes Spent Total Time Spent with Patient: Total time spent is greater than 50% in coordination of care (as documented) at patient's floor/unit and/or counseling patient: Coding Level of Care Code 18420 SUB INP/OBS CARE 2/35MIN Diagnoses Painless jaundice R17 Elevated LFTs R79.89 Elevated INR R79.1 Hypomagnesemia E83.42 Bronchiectasis J47.9 SVT (supraventricular tachycardia) I47.1 Immunodeficiency disorder, common variable D83.9 Hyperlipidemia E78.5 Essential hypertension I10 Diabetes mellitus E11.9 Time Spent (min) 35
[2023-05-12] MEDS: MAGNESIUM SULFATE / D5W 1 GM/100 ML BAG IV SCH ×2 (13:49→15:49)
[2023-05-12] MEDS: valACYclovir HCL 500 MG TABLET PO SCH (19:26)
[2023-05-12] MEDS: ENOXAPARIN INJ 40 MG/0.4 ML SYR SQ SCH (20:30)
[2023-05-12] MEDS ORDERED: SIMETHICONE 80 MG CHEW PO ONE (22:32)
[2023-05-13] MEDS: SODIUM CHLORIDE 0.9% 1000ML 1,000 ML IV SCH (04:03)
[2023-05-13] MEDS: PIPERACILLIN/TAZOBACTAM 4.5 GM CI (over 4 hours) IV SCH ×3 (04:03→20:01)
[2023-05-13] MEDS: INSULIN ASPART PER UNIT CHARGE SC SCH ×3 (05:15→18:23)
[2023-05-13] MEDS: diphenhydrAMINE Capsule 25 MG CAP PO PRN (05:59)
[2023-05-13] MEDS: LEVALBUTEROL HCL 0.63 MG/3 ML NEB INH PRN (06:22)
[2023-05-13 07:29] LABS: Basophils % (auto) 1.3 %; Eosinophils # (auto) 0.48 K/uL (0-0.50); Eosinophils % (auto) 6.4 %; Hematocrit (blood only) 32.8 % (37.0-47.0); Hemoglobin 11.8 g/dl (12.0-16.0); Immature Granulocytes # (auto) 0.09 K/uL (0.01-0.20); Immature Granulocytes % (auto) 1.2 %; Lymphocytes # (auto) 1.76 K/uL (1.2-3.4); Lymphocytes % (auto) 23.5 %; Mean Corpuscular Volume 86.1 fL (80.0-100.0); Mean Platelet Volume 10.5 fL (9.4-12.4); Monocytes # (auto) 0.59 K/uL (0.11-0.59); Monocytes % (auto) 7.9 %; Neutrophils # (auto) 4.47 K/uL (1.40-6.50); Neutrophils % (auto) 59.7 %; Platelet Count 361 K/uL (130-400); RDW Coefficient of Variation 17.1 % (11.5-14.5); RDW Standard Deviation 53.6 fL (36.4-46.3); Red Blood Count 3.81 M/uL (4.20-5.40); White Blood Count 7.49 K/ul (4.8-10.8)
[2023-05-13 07:45] LABS: Albumin Globulin Ratio 1.1 (0.9-2); Albumin Level 3.6 gm/dl (3.4-5.0); BUN Creatinine Ratio 10.5 (10-20); Bilirubin,Total 9.9 mg/dl (0.2-1.0); Calcium 9.8 mg/dl (8.6-10.3); Creatinine Clr Calc Pharmacy 57.4 ml/min; Est GFR (African American) 72.8 ml/min; Est GFR (Non-African American) 62.9 ml/min; Globulin 3.3 gm/dl (2.5-4.0); Magnesium 1.5 mg/dl (1.7-2.4); Potassium 3.4 mmol/L (3.5-5.1); Total Protein 6.9 gm/dl (6.0-8.3)
[2023-05-13 07:49] LABS: INR 1.1 (0.9-1.1); Prothrombin Time 11.9 Seconds (9.0-12.0)
[2023-05-13] MEDS: [UNRECOGNIZED DRUG - OTHER] SCH ×2 (08:47→20:02)
[2023-05-13] MEDS: UMECLIDINIUM/VILANTEROL 62.5/25MCG 7 PUFFS/INHALER INH SCH (08:48)
[2023-05-13] MEDS: LANTUS PER UNIT CHARGE SQ SCH ×2 (08:48→20:01)
[2023-05-13] MEDS: amLODIPine BESYLATE 5 MG TAB PO SCH (08:48)
[2023-05-13] MEDS: MONTELUKAST SODIUM 10 MG TABLET PO SCH (08:49)
[2023-05-13] MEDS: PANTOprazole 40 MG TAB PO SCH (08:49)
[2023-05-13] MEDS: LOSARTAN POTASSIUM 50 MG TAB PO SCH (08:49)
[2023-05-13] MEDS: CHOLESTYRAMINE LIGHT 4 GM PKT PO SCH (08:50)
[2023-05-13] MEDS: ADVANCED PROBIOTIC 1250 MG CAPSULE PO SCH (08:50)
[2023-05-13] MEDS: ONDANSETRON INJ 2 MG/ML 2 ML VIAL IV PRN (09:09)
--- NOTE | 2023-05-13 10:03 | Gastroenterology Progress Note ---
Date of Service May 13, 2023 Assessment & Plan (1) Painless jaundice: Plan: Pt is a 67 yo female w hx of CVID on immunotherapy under direction of Harley Trevino, currently admitted w painless jaundice. Outpt CT w signs of biliary + pancreatic ducts dilation w abrupt tapering of both duct in pancreatic head. There is 3cm faint region of hyperenhancement in that region concerning for mass vs fibrosis. - Continue Zosyn IV coverage - Keep NPO - Plan for EUS/ERCP by Dr. Neeru Singer in OR today - Symptomatic management otherwise Admission and Anticipated Discharge Date Admission Date: May 10, 2023 Supervising Physician Co-Signing Physician Notes I saw and evaluated the patient. We are planning to do upper endoscopy with endoscopic ultrasound and ERCP today for evaluation of a suspected pancreatic mass. The risks and benefits of the procedure were discussed with the patient and her family to include bleeding, infection, perforation, pain, failed biliary cannulation and insufficient cellularity and the need for follow-up studies. Subjective Pt c/o feeling itchy, denies fever, chills, cp, sob, abd pain ,n/v. Review of Systems Review of Systems: All systems reviewed & are unremarkable except as noted in HPI & below Physical Exam Constitutional: WD/WN, vitals as above well groomed, cooperative and comfortable Eyes: icteric sclera, PERLLA ENMT: external ear and nose normal, oropharynx normal Respiratory: normal respiratory effort, lungs clear to auscultation Cardiovascular: RRR, no murmur, no edema Gastrointestinal (Abdomen): normal bowel sounds, soft, nontender, no hepatosplenomegaly Skin: no rashes, warm and dry + jaundice Neurologic: Motor/Sensory: no asterixis Psychiatric: A+Ox3, euthymic affect Lymphatic: no lymphedema Results & Data Vital Signs (Past 12 Hours) Vital Signs Temp Pulse Pulse Resp BP Pulse Ox O2 Del Method 05/13/23 07:46 Room Air 05/13/23 07:32 36.2 C L 66 16 155/69 H 97 Room Air 05/13/23 06:52 94 H 05/13/23 06:23 55 L 18 97 Room Air 05/13/23 03:40 36.9 C 69 16 131/73 97 Room Air 05/12/23 22:06 65 05/12/23 22:06 36.9 C 65 16 145/72 H 96 Room Air
--- NOTE | 2023-05-13 10:41 | Hospitalist Progress Note ---
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 She was then found to have elevated liver function and a CT scan of the abdomen was done which showed evidence of diffuse intra and extrahepatic ductal dilatation and a 3 cm lesion in the head of the pancreas. Patient was asked to come to the hospital for further evaluation. Gastroenterology has been consulted, ERCP scheduled for today. (2) Elevated LFTs: Plan: -Outpatient labs and CT imaging reveal significantly elevated LFT's with CBD and pancreatic duct obstruction/dilation which will require non-emergent ERCP at this time - plan is for EUS ERCP today -Continue to trend LFT's daily -Low fat, DMII diet -Hold atorvastatin and oral antihyperglycemics with elevated LFT's -Continue cholestyramine for pruritus Appreciate GI recommendations. (3) Elevated INR: Plan: -No signs of bleeding -Monitor am INR (4) Hypomagnesemia: Plan: Replace (5) Bronchiectasis: Plan: -Stable on RA -Continue home breathing treatments and pulm hygiene (6) SVT (supraventricular tachycardia): Plan: -Stable -Monitor on tele (7) Immunodeficiency disorder, common variable: Plan: -Hold SQ Hizentra for now per her Immunology team -Continue prophylactic Valtrex (8) Hyperlipidemia: Plan: -Hold statin with elevated LFT's (9) Essential hypertension: Plan: -Stable -Conitnue losartan and amlodipine (10) Diabetes mellitus: Plan: -Hold oral regimen -Monitor BSG ACHS, goal is 110-140 -5 untis lantus BID, CF 50, and CR 15 ACHS -DMII and low fat diet -Adjust regimen as needed Plan continue hopsitalization, hopefully d/c in the next 24 hrs Admission and Anticipated Discharge Date Admission Date: May 10, 2023 Subjective patient seen and examined, still complains of some pruritus Review of Systems Review of Systems: All systems reviewed are negative, apart from the ones contained in the history. Physical Exam Physical Exam: The patient is awake, alert and oriented 3, well developed and well nourished, normocephalic and atraumatic, lying in bed and in no acute distress. HEENT--PERRL, EOMI, jaundice+++ Neck--supple. No JVD. No bruits. Thyroid normal, trachea midline, no adenopathy. Heart--normal S1 and S2. No murmurs, rubs or gallops. Lungs--clear bilaterally, no respiratory distress, no accessory muscle use. Abdomen--normal bowel sounds and soft. Mild epigastric and left sided abdominal pain Extremities--no cyanosis or clubbing. No edema. Dermatologic--normal skin turgor, normal color, no abnormal lymph nodes, no rash. Neurologic--cranial nerves II through XII grossly intact. Rheumatologic--normal range of motion. Psychiatric--normal affect. Results & Data Results & Data Vital Signs (Past 12 Hours) Vital Signs Temp Pulse Pulse Resp BP Pulse Ox O2 Del Method 05/13/23 07:46 Room Air 05/13/23 07:32 97.2 F L 66 16 155/69 H 97 Room Air 05/13/23 06:52 94 H 05/13/23 06:23 55 L 18 97 Room Air 05/13/23 03:40 98.4 F 69 16 131/73 97 Room Air PG Care Time/CCT Total # of Minutes Spent Total Time Spent with Patient: Total time spent is greater than 50% in coordination of care (as documented) at patient's floor/unit and/or counseling patient: Coding Level of Care Code 69331 SUB INP/OBS CARE 2/35MIN Diagnoses Painless jaundice R17 Elevated LFTs R79.89 Elevated INR R79.1 Hypomagnesemia E83.42 Bronchiectasis J47.9 SVT (supraventricular tachycardia) I47.1 Immunodeficiency disorder, common variable D83.9 Hyperlipidemia E78.5 Essential hypertension I10 Diabetes mellitus E11.9 Time Spent (min) 35
[2023-05-13] MEDS ORDERED: DEXAMETHASONE SOD INJ 4 MG/ML VIAL ONE (13:04)
[2023-05-13] MEDS ORDERED: ONDANSETRON INJ 2 MG/ML 2 ML VIAL ONE (13:04)
[2023-05-13] MEDS ORDERED: LIDOCAINE 2% 2 ML VIAL/AMP(20MG/ML) INFIL ONE (13:04)
[2023-05-13] MEDS ORDERED: fentaNYL citrate PF 100 MCG/2 ML VIAL ONE (13:04)
[2023-05-13] MEDS ORDERED: ROCURONIUM BROMIDE 10 MG/ML 5 ML VIAL IV ONE (13:04)
[2023-05-13] MEDS ORDERED: MIDAZOLAM HCL 1 MG/ML 2ML VIAL ONE (13:04)
[2023-05-13] MEDS ORDERED: PROPOFOL IV EMULSION 10 MG/ML 20 ML VIAL IV ONE (13:04)
[2023-05-13] MEDS ORDERED: fentaNYL citrate PF 100 MCG/2 ML VIAL IV PRN (13:27)
[2023-05-13] MEDS ORDERED: ATROPINE SULFATE 0.1 MG/ML 10ML SYR IV PRN (13:27)
[2023-05-13] MEDS ORDERED: ePHEDrine sulfate 50 MG/ML AMP IV PRN (13:27)
[2023-05-13] MEDS ORDERED: ONDANSETRON INJ 2 MG/ML 2 ML VIAL IV PRN (13:27)
--- NOTE | 2023-05-13 13:27 | Anesthesiology Consultation ---
Date of Service May 13, 2023 Assessment & Plan Chart Review Chart Review: licensed direct entry midwife initiated History Surgery Operation Date: 05/13/23 08:30 Proposed Procedures p Endoscopic Ultrasonography Upper - Neeru Singer DO s Endoscopic Retrograde Cholangiopancreatography - Neeru Singer DO Height/Weight Height: 5 ft 7 in Weight: 68.4 kg Allergies Allergy/AdvReac Type Severity Reaction Status Date / Time glycine [From Cuvitru] Allergy Intermediate Rash Verified 05/10/23 14:38 immune globulin,alpha (IgA) Allergy Intermediate Rash Verified 05/10/23 14:38 greater than 50 mcg/mL [From Cuvitru] immune globulin,gamma (IgG) Allergy Intermediate Rash Verified 05/10/23 14:38 human [From Cuvitru] nitrofurantoin Allergy Mild Rash Verified 05/10/23 14:38 meperidine AdvReac Severe N/V Verified 05/10/23 14:38 nalbuphine AdvReac Severe Severe Verified 05/10/23 14:38 vomiting oxycodone [From Percocet] AdvReac Severe N/V Verified 05/10/23 14:38 semaglutide [From Ozempic] AdvReac Severe Severe GI Verified 05/10/23 14:38 symptoms tramadol AdvReac Severe N/V Verified 05/10/23 14:38 Medications Home Medications Medication Instructions Recorded Confirmed Last Taken ondansetron HCl 4 mg tablet 4 mg PO Q6H PRN nausea and 03/26/22 05/10/23 05/09/23 vomiting #20 tabs Lactobacillus rhamnosus GG 10 1 cap PO QAM 04/19/22 05/10/23 05/09/23 billion cell capsule (Culturelle) cyanocobalamin (vitamin B-12) 1,000 mcg PO DAILY #30 tabs 04/19/22 05/10/23 05/09/23 1,000 mcg tablet mupirocin 2 % topical ointment 1 applic topical BID PRN Skin 04/19/22 05/10/23 05/09/23 Irritation montelukast 10 mg tablet 10 mg PO QAM #90 tabs 09/21/22 05/10/23 05/09/23 omeprazole 40 mg capsule,delayed 40 mg PO DAILY #90 caps 09/21/22 05/10/23 05/09/23 release levalbuterol tartrate 45 2 inh inhalation Q4H PRN shortness 10/01/22 05/10/23 05/09/23 mcg/actuation aerosol inhaler of breath or wheezing #3 Inhalers (Xopenex HFA) levalbuterol HCl 0.63 mg/3 mL 0.63 mg (3 mL) inhalation Q6H PRN 10/04/22 05/10/23 05/09/23 solution for nebulization cough/wheezing/shortness of breath #180 mL blood sugar diagnostic #100 ea 10/22/22 05/09/23 Unknown desloratadine 5 mg tablet 5 mg PO QAM #90 tabs 01/03/23 05/10/23 05/09/23 (Clarinex) losartan 100 mg tablet 100 mg PO QAM #90 tabs 04/01/23 05/10/23 05/09/23 alogliptin 25 mg tablet 25 mg PO DAILY 04/05/23 05/10/23 05/09/23 cyclosporine 0.05 % eye drops in a 1 drp ophthalmic (eye) Q12H 04/05/23 05/10/23 05/09/23 dropperette fluticasone propionate 93 1 spray intranasal Q12H 04/05/23 05/10/23 05/09/23 mcg/actuation breath activated aerosol (Xhance) metformin 750 mg tablet,extended 1,500 mg PO DAILY 04/05/23 05/10/23 05/09/23 release 24 hr umeclidinium 62.5 mcg-vilanterol 1 inh inhalation DAILY #120 ea 04/30/23 05/10/23 05/09/23 25 mcg/actuation powdr for inhalation (Anoro Ellipta) amlodipine 2.5 mg tablet 5 mg PO DAILY #30 tabs 05/09/23 05/10/23 05/09/23 cetirizine 10 mg tablet 10 mg PO .COMPLEX 05/09/23 05/10/23 05/09/23 famotidine 40 mg tablet 40 mg PO BID 05/09/23 05/10/23 05/09/23 hydroxyzine HCl 10 mg tablet 20 mg PO BID 05/09/23 05/10/23 05/09/23 epinephrine 0.3 mg/0.3 mL 0.3 ml IM DIRECTED PRN allergic 05/10/23 05/10/23 05/09/23 injection, auto-injector reactions fluticasone propionate 93 1 spray intranasal BID 05/10/23 05/10/23 05/09/23 mcg/actuation breath activated aerosol (Xhance) valacyclovir 500 mg tablet 0 mg PO Q2D 05/10/23 05/10/23 05/09/23 (Valtrex) Active Medications Generic Name Dose Route Start Last Admin Trade Name Freq PRN Reason Stop Dose Admin Amlodipine Besylate 5 mg 05/11/23 09:00 05/13/23 08:48 Amlodipine Besylate 5 Mg Tab PO 06/10/23 08:59 5 mg DAILY BRENNON Administration Artificial Tears 1 drops 05/10/23 17:30 05/11/23 12:25 Artificial Tears OP 06/09/23 17:29 1 drops Q4H PRN Administration DRY EYES Cholestyramine Resin 4 gm 05/10/23 22:00 05/13/23 08:50 Cholestyramine Light 4 Gm Pkt PO 06/09/23 21:59 Not Given BID@1000,2200 BRENNON Diphenhydramine HCl 25 mg 05/10/23 21:31 05/13/23 05:59 Diphenhydramine Capsule 25 Mg Cap PO 06/09/23 21:30 25 mg Q6H PRN Administration Itching Enoxaparin Sodium 40 mg 05/10/23 21:00 05/12/23 20:30 Enoxaparin Inj 40 Mg/0.4 Ml Syr SQ 06/09/23 20:59 40 mg Q24H BRENNON Administration Sodium Chloride 1,000 mls @ 80 mls/hr 05/11/23 15:00 05/13/23 04:03 Nss 1000ml IV 06/10/23 14:59 80 mls/hr .[id number] BRENNON Administration Piperacillin Sod/Tazobactam 120 mls @ 30 mls/hr 05/11/23 21:00 05/13/23 12:10 Sod 4.5 gm/ Dextrose IV 05/21/23 20:59 30 mls/hr Q8H BRENNON Administration Protocol Insulin Aspart 0 units 05/13/23 06:00 05/13/23 11:40 Insulin Aspart Per Unit Charge SC 06/12/23 05:59 Not Given Q6 BRENNON Insulin Glargine 5 units 05/10/23 21:00 05/13/23 08:48 Lantus Per Unit Charge SQ 06/09/23 20:59 5 units BID BRENNON Administration Lactobacillus Acidophilus 2 cap 05/11/23 09:00 05/13/23 08:50 Advanced Probiotic 1250 Mg Capsule PO 06/10/23 08:59 2 cap QAM BRENNON Administration Levalbuterol HCl 0.63 mg 05/10/23 17:17 05/13/23 06:22 Levalbuterol Hcl 0.63 Mg/3 Ml Neb INH 06/09/23 17:16 0.63 mg Q6R PRN Administration cough/wheezing/shortness of breath Protocol Losartan Potassium 100 mg 05/11/23 09:00 05/13/23 08:49 Losartan Potassium 50 Mg Tab PO 06/10/23 08:59 100 mg QAM BRENNON Administration Montelukast Sodium 10 mg 05/11/23 09:00 05/13/23 08:49 Montelukast Sodium 10 Mg Tablet PO 06/10/23 08:59 10 mg QAM BRENNON Administration Xhance~Non-Formulary 1 each 05/10/23 18:15 05/13/23 08:47 Patient's Own Med NA 06/09/23 18:14 93 mcg Q12H BRENNON Administration Ondansetron HCl 4 mg 05/11/23 11:37 05/13/23 09:09 Ondansetron Inj 2 Mg/Ml 2 Ml Vial IV 06/10/23 11:36 4 mg Q6H PRN Administration Nausea And Vomiting Oxycodone HCl 5 mg 05/10/23 21:36 05/11/23 17:37 Oxycodone Hcl Ir 5 Mg Tab (Immediate Release) PO 05/24/23 21:35 5 mg Q4H PRN Administration Pain Pantoprazole Sodium 40 mg 05/11/23 09:00 05/13/23 08:49 Pantoprazole 40 Mg Tab PO 06/10/23 08:59 40 mg DAILY BRENNON Administration Umeclidinium/Vilanterol 1 puffs 05/11/23 09:00 05/13/23 08:48 Umeclidinium/Vilanterol 62.5/25mcg 7 Puffs/Inhaler INH 06/10/23 08:59 1 puffs DAILY BRENNON Administration Valacyclovir HCl 500 mg 05/10/23 19:00 05/12/23 19:26 Valacyclovir Hcl 500 Mg Tablet PO 06/09/23 18:59 500 mg Q24H BRENNON Administration Past Medical History Medical History Allergic rhinitis Anemia Asthma Cochlear implant in place Left Cough Diabetes mellitus Essential hypertension Frequent sinus infections Gastro-esophageal reflux disease without esophagitis Hearing loss History of cataract R/L Hx of supraventricular tachycardia Hyperlipidemia Immunodeficiency disorder, common variable on IVIG injections Iron deficiency anemia Pseudomonas aeruginosa colonization Nasal - reason for tobramycin PRN Past Family History Family History Father Arthritis Asthma Stroke Sister Asthma Mother Stroke Pulmonary fibrosis Past Surgical History Surgical History Family history of reaction to anesthesia Mother- "heart stopped in surgery" with hysterectomy in 1970s. H/O arthroscopic knee surgery Right H/O section H/O lymph node biopsy History of ear surgery Cochlear implant surgery x2 History of esophagogastroduodenoscopy (EGD) S/P bunionectomy Right S/P cholecystectomy S/P colonoscopy 2020 S/P dilatation and curettage S/P hip replacement Left JUSTIN (12/10/16) S/P hysterectomy S/P myringotomy with insertion of tube S/P sinus surgery S/P tonsillectomy Status post right knee replacement (~08/2022) Social History Smoking Status: Never smoker Do You Dip or Chew Tobacco: No Hx Alcohol Use: No Hx Substance Use: No substance use type: does not use Physical Exam Vital Signs Last Vital Signs Temp 98.4 F 05/13/23 11:44 Pulse 62 05/13/23 11:44 Resp 18 05/13/23 11:44 BP 163/78 H 05/13/23 11:44 Pulse Ox 97 05/13/23 11:44 O2 Del Method Room Air 05/13/23 11:44 Testing Laboratory Results 05/13/23 07:04 05/13/23 07:04 PT 11.9 Seconds (9.0-12.0) 05/13/23 07:04 INR 1.1 (0.9-1.1) 05/13/23 07:04 APTT 32.5 Seconds (21.0-31.0) H 05/11/23 05:51 Hemoglobin A1c 7.1 % (4.5-5.6) H 05/11/23 05:51 Urine Color Dark Yellow 05/10/23 10:03 Urine Appearance Clear (Clear) 05/10/23 10:03 Urine pH 5.5 (4.5-7.5) 05/10/23 10:03 Ur Specific [place] 1.009 (1.000-1.030) 05/10/23 10:03 Urine Protein Negative (Negative) 05/10/23 10:03 Urine Glucose (UA) Negative (Negative) 05/10/23 10:03 Urine Ketones Negative (Negative) 05/10/23 10:03 Urine Nitrite Negative (Negative) 05/10/23 10:03 Ur Leukocyte Esterase Negative (Negative) 05/10/23 10:03 05/13/23 05/13/23 11:33 05:14 POC Glucose 104 H 117 H Electrocardiogram Date: 05/10/23 Normal sinus rhythm, rate 77 bpm Low voltage QRS Abnormal ECG When compared with ECG of 15-AUG-2022 12:09, Questionable change in QRS axis Confirmed by Mikey Wen ([id number]) on 05/10/2023 1:30:35 PM
--- NOTE | 2023-05-13 14:07 | History & Physical Bridge Note ---
Date of Service May 13, 2023 History & Physical Bridge Note I have examined the patient, reviewed the History & Physical and in the interval since the performance of the History & Physical I have noted the following changes of clinical significance: no changes noted The patient presents with biliary obstruction thought to be related to a pancreatic head mass. We have been asked to do upper endoscopy with endoscopic ultrasound and possible ERCP. I discussed the risks and benefits of the procedure with the patient and her to include bleeding, infection, perforation, pain, inability to access the bile duct and need for follow-up studies.
--- NOTE | 2023-05-13 14:30 | GI REPORT ---
Patient Name: Renetta Munguia Procedure Date: 05/13/2023 2:18 PM Date of : 1955 Admit Type: Inpatient Age: 67 Gender: Female Attending MD: Neeru Singer DO, Procedure: Upper GI endoscopy Providers: Neeru Singer DO Referring MD: Teresita Owen Md Indications: Epigastric abdominal pain, Abnormal CT of the GI tract Medicines: General Anesthesia Complications: No immediate complications. Estimated blood loss: Minimal. Estimated Blood Loss: Estimated blood loss was minimal. Procedure: Pre-Anesthesia Assessment: - Prior to the procedure, a History and Physical was performed, and patient medications, allergies and sensitivities were reviewed. The patient's tolerance of previous anesthesia was reviewed. - The risks and benefits of the procedure and the sedation options and risks were discussed with the patient. All questions were answered and informed consent was obtained. - Patient identification and proposed procedure were verified prior to the procedure by the physician, the nurse and the highwall drill operator. The procedure was verified in the procedure room. - Pre-procedure physical examination revealed no contraindications to sedation. - ASA Grade Assessment: III - A patient with severe systemic disease. - After reviewing the risks and benefits, the patient was deemed in satisfactory condition to undergo the procedure. - The anesthesia plan was to use general anesthesia. - Immediately prior to administration of medications, the patient was re-assessed for adequacy to receive sedatives. - The heart rate, respiratory rate, oxygen saturations, blood pressure, adequacy of pulmonary ventilation, and response to care were monitored throughout the procedure. - The physical status of the patient was re-assessed after the procedure. After obtaining informed consent, the endoscope was passed under direct vision. Throughout the procedure, the patient's blood pressure, pulse, and oxygen saturations were monitored continuously. The Endoscope was introduced through the mouth, and advanced to the third part of duodenum. The upper GI endoscopy was accomplished without difficulty. The patient tolerated the procedure well. Findings: The examined esophagus was normal. The Z-line was regular and was found 36 cm from the incisors. The entire examined stomach was normal. The examined duodenum was normal. Impression: - Normal esophagus. - Z-line regular, 36 cm from the incisors. - Normal stomach. - Normal examined duodenum. - No specimens collected. Recommendation: - Perform an upper endoscopic ultrasound (UEUS) today. Neeru Singer D.O. Neeru Singer, 05/13/2023 2:29:40 PM This report has been signed electronically. Note Initiated On: 05/13/2023 2:18 PM Number of Addenda: 0 I attest to the content of the Intraoperative Record and orders documented therein, exceptions below {[id number]}
[2023-05-13] MEDS ORDERED: ePHEDrine sulfate 50 MG/ML AMP ONE (14:59)
[2023-05-13] MEDS ORDERED: GLYCOPYRROLATE 0.2 MG/ML VIAL ONE (15:04)
[2023-05-13] MEDS ORDERED: NEOSTIGMINE METHYLSULFATE 1 MG/ML 10ML VIAL ONE (15:04)
[2023-05-13] MEDS ORDERED: INDOMETHACIN 50 MG SUPP PR ONE (15:53)
--- NOTE | 2023-05-13 16:46 | GI REPORT ---
Patient Name: Renetta Munguia Procedure Date: 05/13/2023 2:56 PM Date of : 1955 Admit Type: Inpatient Age: 67 Gender: Female Attending MD: Neeru Singer DO, Procedure: ERCP Providers: Neeru Singer DO Referring MD: Slim Rhodes Indications: Jaundice, Tumor of the head of pancreas Medicines: General Anesthesia Complications: No immediate complications. Estimated blood loss: Minimal. Estimated Blood Loss: Estimated blood loss was minimal. Procedure: Pre-Anesthesia Assessment: - Prior to the procedure, a History and Physical was performed, and patient medications, allergies and sensitivities were reviewed. The patient's tolerance of previous anesthesia was reviewed. - The risks and benefits of the procedure and the sedation options and risks were discussed with the patient. All questions were answered and informed consent was obtained. - Patient identification and proposed procedure were verified prior to the procedure by the physician, the nurse and the medical practice manager. The procedure was verified in the procedure room. - Pre-procedure physical examination revealed no contraindications to sedation. - ASA Grade Assessment: III - A patient with severe systemic disease. - After reviewing the risks and benefits, the patient was deemed in satisfactory condition to undergo the procedure. - The anesthesia plan was to use general anesthesia. - Immediately prior to administration of medications, the patient was re-assessed for adequacy to receive sedatives. - The heart rate, respiratory rate, oxygen saturations, blood pressure, adequacy of pulmonary ventilation, and response to care were monitored throughout the procedure. - The physical status of the patient was re-assessed after the procedure. After obtaining informed consent, the scope was passed under direct vision. Throughout the procedure, the patient's blood pressure, pulse, and oxygen saturations were monitored continuously. The Duodenoscope was introduced through the mouth, and advanced to the duodenum and to cannulate the ventral pancreatic duct. The ERCP was determined to be ASGE Difficulty Grade 3 due to difficulty passing guidewires through biliary ductal stenosis from an obstructing pancreatic head mass. The patient tolerated the procedure well. Findings: A weigher operator film of the abdomen was obtained. Surgical clips, consistent with a previous cholecystectomy, were seen in the area of the right upper quadrant of the abdomen. The esophagus was successfully intubated under direct vision without detailed examination of the pharynx, larynx, and associated structures, and upper GI tract. The upper GI tract was grossly normal. The major papilla was normal. Deep cannulation of the ventral pancreatic duct was accomplished with the short-nosed traction sphincterotome and 0.025 in Angled Visiglide guidewire. The guidewire was left in place to aid in biliary cannulation with a double wire technique and later place a prophylactic pancreatic stent. The bile duct could not be cannulated with the short-nosed traction sphincterotome and guidewire, multiple guuidewires tried to include a 0.025 angled Visiglide guidewire, Acrobat 2 and 0.025 in Glidewire. A ventral pancreatic septotomy was made with a monofilament CleverCut distal wire sphincterotome using ERBE electrocautery. There was no post-sphincterotomy bleeding. The bile duct could not be cannulated with the short-nosed traction sphincterotome and numerouse guidewires as mentioned above. One 5 Fr by 7 cm pancreatic stent with a full external pigtail and no internal flaps was placed 6 cm into the ventral pancreatic duct. Clear fluid flowed through the stent. The stent was in good position. The bile duct could still not be cannulated with the short-nosed traction sphincterotome and numerous guidewires. The endoscope was withdrawn from the patient. Indomethacin 100 mg was given via suppository to decrease the risk of post-ERCP pancreatitis (PEP). Impression: - The major papilla appeared normal. - A pancreatic sphincterotomy was performed. - One pancreatic stent was placed into the ventral pancreatic duct. - Indomethacin given to decrease risk of post-ERCP pancreatitis. - Unable to cannulate the common bile duct due to an obstructing pancreatic head mass. Recommendation: - Transfer patient to another hospital for repeat attempt at ERCP or use of other advanced cannulation techniques.. - Clear liquid diet. Neeru Singer D.O. Neeru Singer DO 05/13/2023 4:45:42 PM This report has been signed electronically. Note Initiated On: 05/13/2023 2:56 PM Number of Addenda: 0 I attest to the content of the Intraoperative Record and orders documented therein, exceptions below {[id number]}
--- NOTE | 2023-05-13 16:52 | GI REPORT ---
Patient Name: Renetta Munguia Procedure Date: 05/13/2023 2:20 PM Date of : 1955 Admit Type: Inpatient Age: 67 Gender: Female Attending MD: Neeru Singer DO, Procedure: Upper EUS Providers: Neeru Singer DO Referring MD: Teresita Owen Md Indications: Elevated liver enzymes Medicines: General Anesthesia Complications: No immediate complications. Estimated blood loss: Minimal. Estimated Blood Loss: Estimated blood loss was minimal. Procedure: Pre-Anesthesia Assessment: - Prior to the procedure, a History and Physical was performed, and patient medications, allergies and sensitivities were reviewed. The patient's tolerance of previous anesthesia was reviewed. - The risks and benefits of the procedure and the sedation options and risks were discussed with the patient. All questions were answered and informed consent was obtained. - Patient identification and proposed procedure were verified prior to the procedure by the physician, the nurse and the obstetrician. The procedure was verified in the procedure room. - Pre-procedure physical examination revealed no contraindications to sedation. - ASA Grade Assessment: III - A patient with severe systemic disease. - After reviewing the risks and benefits, the patient was deemed in satisfactory condition to undergo the procedure. - The anesthesia plan was to use general anesthesia. - Immediately prior to administration of medications, the patient was re-assessed for adequacy to receive sedatives. - The heart rate, respiratory rate, oxygen saturations, blood pressure, adequacy of pulmonary ventilation, and response to care were monitored throughout the procedure. - The physical status of the patient was re-assessed after the procedure. After obtaining informed consent, the endoscope was passed under direct vision. Throughout the procedure, the patient's blood pressure, pulse, and oxygen saturations were monitored continuously. The Endosonoscope was introduced through the mouth, and advanced to the third part of duodenum. The upper EUS was accomplished without difficulty. The patient tolerated the procedure well. Findings: ENDOSONOGRAPHIC FINDING: : There was no sign of significant endosonographic abnormality in the ampulla. No pathologic lymphadenopathy was identified. Evidence of a previous cholecystectomy was identified endosonographically. There was dilation in the common bile duct which measured up to 11 mm. Intrahepatid ductal dilation No lymphadenopathy seen. There was no sign of significant endosonographic abnormality in the left adrenal gland. No adrenal gland enlargement was identified. An irregular mass was identified in the pancreatic head. The mass was hypoechoic. The mass measured 22 mm by 16 mm in maximal cross-sectional diameter. The endosonographic borders were poorly-defined. There was sonographic evidence suggesting invasion into the portal vein (manifested by interface loss less than 15 mm). An intact interface was seen between the mass and the adjacent structures suggesting a lack of invasion. The remainder of the pancreas was examined. The endosonographic appearance of parenchyma and the upstream pancreatic duct indicated no duct dilation and parenchymal atrophy. Fine needle aspiration for cytology was performed. Color Doppler imaging was utilized prior to needle puncture to confirm a lack of significant vascular structures within the needle path. Five passes were made with the 22 gauge needle and with the 25 gauge needle using a transduodenal approach. A stylet was used. A director executive communications was present to evaluate the adequacy of the specimen. Final cytology results are pending. Estimated blood loss was minimal. Impression: - There was no sign of significant pathology in the ampulla. - Evidence of a cholecystectomy. - There was dilation in the common bile duct which measured up to 11 mm. - Endosonographic images of the left adrenal gland were unremarkable. - A 22 mm mass was identified in the pancreatic head. This was staged T2 N0 M0 by endosonographic criteria. The staging applies if malignancy is confirmed. Fine needle aspiration performed. Recommendation: - Perform an ERCP today. - Await cytology results. Neeru Singer D.O. Neeru Singer, 05/13/2023 4:51:41 PM This report has been signed electronically. Note Initiated On: 05/13/2023 2:20 PM Number of Addenda: 0 I attest to the content of the Intraoperative Record and orders documented therein, exceptions below {[id number]}
--- NOTE | 2023-05-13 16:54 | Post Operative Brief Note ---
Immediate Post Op Note v1 Date of Surgery May 13, 2023 Pre & Post Diagnosis Operation Date: 05/13/23 08:30 Pre-Op Diagnosis: ABNORMAL OUTPATIENT LABS/CT Post-Op Diagnosis: pancreatic mass I identified the patient and participated in the time-out.: Yes Procedure Operation Date: 05/13/23 08:30 Actual Procedures s Endoscopic Ultrasonography Upper with FNA - Neeru Singer, s Endoscopic Retrograde Cholangiopancreato - Neeru Singer DO p Esophagogastroduodenoscopy - Neeru Singer, Surgeon Neeru Singer, Chargemaster Analyst none Estimated Blood Loss 0 Findings Consistent with Post-Op Diagnosis (22 mm pancreatic head mass)
--- NOTE | 2023-05-13 16:55 | Anesthesiology Progress Note ---
Date of Service May 13, 2023 Anesthesia Post Procedure Vital Signs Vital Signs: Temp Pulse Pulse Resp BP Pulse Ox O2 Del Method 05/13/23 13:26 98.4 F 75 18 165/84 H 98 Room Air 05/13/23 11:44 98.4 F 62 18 163/78 H 97 Room Air 05/13/23 07:46 Room Air 05/13/23 07:32 97.2 F L 66 16 155/69 H 97 Room Air 05/13/23 06:52 94 H 05/13/23 06:23 55 L 18 97 Room Air 05/13/23 03:40 98.4 F 69 16 131/73 97 Room Air 05/12/23 22:06 65 05/12/23 22:06 98.4 F 65 16 145/72 H 96 Room Air 05/12/23 19:09 99.0 F 62 18 153/76 H 96 Room Air Pain Intensity Bilateral Head: Pain Intensity: 4 Right Ribs: Pain Intensity: 1 Transfer of Care Handoff Completed per policy Notes Mental Status: alert / awake / arousable and participated in evaluation Patient Amnestic to Procedure: Yes Nausea / Vomiting: adequately controlled Pain: adequately controlled Airway Patency, RR, SpO2: stable & adequate BP & HR: stable & adequate Hydration State: stable & adequate Anesthetic Complications: no major complications apparent and Pt Satisfied with anesthetic care
--- NOTE | 2023-05-13 16:56 | Communication Note ---
Date of Service: May 13, 2023 Endoscopy, endoscopic ultrasound and attempted ERCP today. We were able to get a fine-needle aspiration from the pancreatic head mass which measured appro ximately 22 mm and is a T2N1M0 mass by EUS criteria. Unfortunately despite numerous attempts as I was unable to successfully cannulate the common bile duct Patient's Clear liquid diet today Antibiotic coverage 5 days Transfer to a Tertiary center for repeat attempt at ERCP or possible IR drainage if not successful.
--- NOTE | 2023-05-13 18:21 | Fluoroscopy Report ---
INTRAOPERATIVE RADIOGRAPHS CLINICAL HISTORY: ERCP Fluoro time: 255 seconds. Ka,r: 40.37 mGy FINDINGS: 3 spot fluoroscopic views of the right upper quadrant from an ERCP procedure are presented. Cholecystectomy clips are noted. A wire is placed into the pancreatic duct, and a pancreatic stent w as deployed. The common bile duct was not accessed on the provided images. IMPRESSION: Intraoperative ERCP images showing stent placement within the pancreatic duct. See operat caden report for detailed findings. Electronically signed by: Elia Nieto M.D. 05/13/2023 6:20 PM
--- NOTE | 2023-05-13 18:39 | Communication Note ---
Date of Service: May 13, 2023 pt was d/c from [facility] and as nurse was taking her up, she complained of blurriness in her left eye. It was her first time complaining of this. Eye was normal in appearance. pt did not have difficulty keeping it open. she did not complain of sensation of something in her eye. ELEAZAR. I flushed the eye several times with saline. Pt reported that it improved her eye sight, but did not make it better. This is not a classic corneal abrasion appearance. I contacted her hospitalist by phone and we decided to give her a few hours to see if it improved. Pt is mark otherwise
[2023-05-13] MEDS: valACYclovir HCL 500 MG TABLET PO SCH (19:39)
[2023-05-13] MEDS: ENOXAPARIN INJ 40 MG/0.4 ML SYR SQ SCH (20:02)
--- NOTE | 2023-05-14 07:19 | Discharge Summary ---
Date of Service May 13, 2023 Admission HPI Per Admitting Provider Renetta is a 67 year old female with a PMH significant for IGG deficiency, bronchiectasis, SVT, ADILIA, DM II, HTN, and hyperlipidemia who presented to the [facility] ED on 05/10/23 at the recommendation of her PCP for abnormal outpatient labs and CT findings. The patient reportedly saw her PCP yesterday due to itching. Her PCP obtained outpatient labs and CT of the chest WO con + CT abd/pelvis w/IV con. She was noted to have a total bili of 6.9, T100, ALT 81, Alk phos of 126, CRP of 2.50, ESR of 101. CT's were significant for stable and benign pulmonary nodules, diffuse intrahepatic and extrahepatic biliary duct dilation, new since last CT in 08/2022, abrupt tapering of the distal CBD in the pancreatic head, diffuse pancreatic duct dilation, a 3 cm lesion in the region of the pancreatic duct and common bile duct tapering is faintly hyperenhancing compared to the remainder of the pancreatic parenchyma, and may represent a mass or fibrosis, multiple cystic lesions throughout the pancreas. In the ED today the patient's vitals have been stable, she has been afebrile. Labs to day are significant for mag of 1.1, total bili of 7.1, direct bili of 4.3, AST of 97, ALT of 76, alk phos of 124, lipase of 200, negative UA and covid 19 negative. There is currently no GI coverage at [facility] over the weekend for possible ERCP. The ED spoke to the GI team at [facility] who said that they would not perform an ERCP over the weekend at this time as the patient is stable and not infectious. They recommended monitoring the patient here for possible ERCP when we have coverage on Saturday. If her LFT's would continue to worsen they would re-consider transfer at that time. Prior to admission the patient was given 2 bags of 1gm IV mag-sulfate, 20 mg Iv famotidine, 4 mg IV zofran, and 1L NSS. At the time of the exam the patient was sitting in bed in no acute distress with her sitting bedside, history was obtained from both. They state that the patient was getting regularly scheduled infusions of Cuvitru for years without issue. She had Covid 19 in February of this year but did not require hospitalization. Since having covid she has developed significant itching and infusion site reactions with both Cuvitru and after a trial of Xembify by her Immunology team at [facility]. She has been having ongoing itching, along with approximately 8 pounds of weight loss and now painless jaundice. Her immunology team spoke with her PCP to coordinate outpatient labs and CT imaging as described above. The patient denies recent fever, chills, chest pain, cough, abd pain, nausea, vomiting, dysuria, hematuria, melena, bloody BM's, LE swelling, and recent trauma. Of note, the patient has been experiencing loss of appetite and has been having dark urine and mary ann colored stool. I explained that at this time we will be admitting her to our service for further monitoring, including trending her LFT's. We will get [facility] GI on board to help coordinate as they should have someone fashion illustrator on Saturday or Saturday to perform a routine ERCP. If needed, the paient may need to be transferred to [facility] for emergent ERCP if she were to decompensate. Her AIRPORT OPERATIONS CREW MEMBER at [facility], Saranya Fisher, told them that if needed they could try and coordinate a transfer down to [facility] for emergent ERCP if needed as well. The patient has been starting on loading doses of SQ Hizentra by her immunologists q3d instead of her previous infusions due to the recent reactions. The patient explains that her Horn Player said they could hold the Hizentra for now, until she is stable from her current illness. The patient is a full code and would want her to make medical decisions for her if she could not make them herself. Principal Diagnosis obstructive jaundice Discharge Exam The patient is awake, alert and oriented 3, well developed and well nourished, normocephalic and atraumatic, lying in bed and in no acute distress. HEENT--PERRL, EOMI, jaundice+++ Neck--supple. No JVD. No bruits. Thyroid normal, trachea midline, no adenopathy. Heart--normal S1 and S2. No murmurs, rubs or gallops. Lungs--clear bilaterally, no respiratory distress, no accessory muscle use. Abdomen--normal bowel sounds and soft. Mild epigastric and left sided abdominal pain Extremities--no cyanosis or clubbing. No edema. Dermatologic--normal skin turgor, normal color, no abnormal lymph nodes, no rash. Neurologic--cranial nerves II through XII grossly intact. Rheumatologic--normal range of motion. Psychiatric--normal affect. Discharge Data Allergies Allergy/AdvReac Type Severity Reaction Status Date / Time glycine [From Cuvitru] Allergy Intermediate Rash Verified 05/10/23 14:38 immune globulin,alpha (IgA) Allergy Intermediate Rash Verified 05/10/23 14:38 greater than 50 mcg/mL [From Cuvitru] immune globulin,gamma (IgG) Allergy Intermediate Rash Verified 05/10/23 14:38 human [From Cuvitru] nitrofurantoin Allergy Mild Rash Verified 05/10/23 14:38 meperidine AdvReac Severe N/V Verified 05/10/23 14:38 nalbuphine AdvReac Severe Severe Verified 05/10/23 14:38 vomiting oxycodone [From Percocet] AdvReac Severe N/V Verified 05/10/23 14:38 semaglutide [From Ozempic] AdvReac Severe Severe GI Verified 05/10/23 14:38 symptoms tramadol AdvReac Severe N/V Verified 05/10/23 14:38 Consultations 05/10/23 13:13 ED Decision to Admit Stat 05/11/23 10:19 Consult Gastroenterology Routine Procedures Performed Operation Date: 05/13/23 08:30 Actual Procedures s Endoscopic Ultrasonography Upper with FNA - Neeru Singer, s Endoscopic Retrograde Cholangiopancreato - Neeru Singer, p Esophagogastroduodenoscopy - Neeru Singer, DO Ordered Studies 05/13/23 [place] ERCP biliary ductal Routine 05/13/23 13:46 US upper EUS PACS images Routine Hospital Course (1) Painless jaundice: Is a 67-year-old female with a history of common variable immunodeficiency on subcutaneous immunoglobulins who was sent to the hospital by her PCP on account of intermittent pruritus. She was then found to have elevated liver function and a CT scan of the abdomen was done which showed evidence of diffuse intra and extrahepatic ductal dilatation and a 3 cm lesion in the head of the pancreas. Patient was asked to come to the hospital for further evaluation. Gastroenterology has been consulted, ERCP scheduled for today. (2) Elevated LFTs: -Outpatient labs and CT imaging reveal significantly elevated LFT's with CBD and pancreatic duct obstruction/dilation which will require non-emergent ERCP at this time - plan is for EUS ERCP today -Continue to trend LFT's daily -Low fat, DMII diet -Hold atorvastatin and oral antihyperglycemics with elevated LFT's -Continue cholestyramine for pruritus Appreciate GI recommendations. (3) Elevated INR: -No signs of bleeding -Monitor am INR (4) Hypomagnesemia: Replace (5) Bronchiectasis: -Stable on RA -Continue home breathing treatments and pulm hygiene (6) SVT (supraventricular tachycardia): -Stable -Monitor on tele (7) Immunodeficiency disorder, common variable: -Hold SQ Hizentra for now per her Immunology team -Continue prophylactic Valtrex (8) Hyperlipidemia: -Hold statin with elevated LFT's (9) Essential hypertension: -Stable -Conitnue losartan and amlodipine (10) Diabetes mellitus: -Hold oral regimen -Monitor BSG ACHS, goal is 110-140 -5 untis lantus BID, CF 50, and CR 15 ACHS -DMII and low fat diet -Adjust regimen as needed Plan Transfer to [facility] Total Time Total Time Spent Total Time Spent (In Minutes): 35 Discharge Plan Discharge Items Patient Disposition: Transfer Acute Care Hospital Reason For Visit: ABNORMAL OUTPATIENT LABS/CT Discharge Diagnosis: obstructive jaundice, mass head of pancrease Activity: Resume your previous activity Non-emergency contact: Primary Care Provider and Outside Upholsterer Call non-emergency contact if: you have any medication questions Follow-up/Referrals: Slim Rhodes DO [Primary Care Provider] - Diet: Regular Addtl Attending Provider Instructions: please make appointment to follow up with your gastroenterolgist Pending Studies at Discharge: No Stand-Alone Forms: My [facility] Skilled Items Patient informed of condition?: Yes DNR: No Discharge Level of Care: Other Communicable Disease: No Discharge Prognosis: Stable Lines: None Urinary Catheter: No Medications and DC Order Prescriptions: Continued ondansetron HCl 4 mg tablet 4 mg PO Q6H PRN (Reason: nausea and vomiting) Qty: 20 0RF Culturelle 10 billion cell capsule 1 cap PO QAM mupirocin 2 % ointment 1 applic topical BID PRN (Reason: Skin Irritation) Rx Instructions: apply with Q-tip to front of nose in a circular manner BID levalbuterol HCl 0.63 mg/3 mL solution for nebulization 0.63 mg INHALATION Q6H PRN (Reason: cough/wheezing/shortness of breath) Qty: 180 3RF (DME) blood sugar diagnostic Strip See Dose Instructions .ROUTE .MEDSUPPLY Qty: 100 3RF Dose Instruction: As directed Rx Instructions: As directed; check once daily dx: E11.9 desloratadine [Clarinex] 5 mg tablet 5 mg PO QAM Qty: 90 3RF losartan 100 mg tablet 100 mg PO QAM Qty: 90 3RF Anoro Ellipta 62.5-25 mcg/actuation blister with device 1 inh inhalation DAILY Qty: 120 2RF cyanocobalamin (vitamin B-12) 1,000 mcg tablet 1,000 mcg PO DAILY Qty: 30 0RF cetirizine 10 mg tablet 10 mg PO .COMPLEX Rx Instructions: 10 mg orally take 2 tabs in the AM and 2 tabs in the PM; famotidine 40 mg tablet 40 mg PO BID hydroxyzine HCl 10 mg tablet 20 mg PO BID amlodipine 2.5 mg tablet 5 mg PO DAILY Qty: 30 2RF Rx Instructions: replaces chlorthalidone montelukast 10 mg tablet 10 mg PO QAM Qty: 90 3RF omeprazole 40 mg capsule,delayed release(DR/EC) 40 mg PO DAILY Qty: 90 3RF cyclosporine 0.05 % dropperette 1 drp ophthalmic (eye) Q12H Patient Comments: both eyes metformin 750 mg tablet extended release 24 hr 1,500 mg PO DAILY alogliptin 25 mg tablet 25 mg PO DAILY Xhance 93 mcg/actuation aerosol breath activated 1 spray intranasal Q12H Rx Instructions: into each nostril levalbuterol tartrate [Xopenex HFA] 45 mcg/actuation HFA aerosol inhaler 2 inh INH Q4H PRN (Reason: shortness of breath or wheezing) Qty: 3 3RF epinephrine 0.3 mg/0.3 mL auto-injector 0.3 ml IM DIRECTED PRN (Reason: allergic reactions) Xhance 93 mcg/actuation aerosol breath activated 1 spray INTRANASAL BID valacyclovir [Valtrex] 500 mg tablet 0 mg PO Q2D Rx Instructions: Patient currently taking 500mg once daily, will go back to 500mg every 2 days once irritation subsides. Discharge Orders: Discharge Order (Routine); Ordered 05/13/23 Ordered By: Teresita Garvey/Other Patient Handouts: Managing Type 2 Diabetes Admission Data Admit Date/Time: 05/10/23 14:17 Attending Provider: Teresita Clayton Admit Provider: Sage Keen Primary Care Provider: Slim Rhodes Other Providers: Alfredito Shaver ; Sage Keen ; Hiro Painter Other Interventions: Discharge Summary Assessment (RN) Last Done: 05/13/23 22:01 Coding Level of Care Code 61481 INP/OBS DISCH >30 MIN Diagnoses Painless jaundice R17 Elevated LFTs R79.89 Elevated INR R79.1 Hypomagnesemia E83.42 Bronchiectasis J47.9 SVT (supraventricular tachycardia) I47.1 Immunodeficiency disorder, common variable D83.9 Hyperlipidemia E78.5 Essential hypertension I10 Diabetes mellitus E11.9 Time Spent (min) 35
--- NOTE | 2023-05-15 14:56 | Coding Query ---
PATHOLOGY To promote full compliance with coding requirements relating to patient care, physician participation is requested in all cases of icu manager uncertainty. Please assist us with the question(s) below: Please review the Pathology report and please document any relevant diagnosis(es) below: Diagnosis(es): adenocarcinoma of pancreatic head Thank you Lalita WAGONER
== END 2023-05-13 21:30 | disposition short-term general hospital (02) | DRG 435 ==
LOC: ED 08:25 → SUATTDRO 14:17 → 2N 14:17

== ENCOUNTER 2024-06-02 18:13 | Observation (INO) ==
[2024-06-02 19:37] LABS: Basophils # (auto) 0.06 K/uL (0.00-0.20); Basophils % (auto) 1.1 %; Eosinophils # (auto) 0.16 K/uL (0.00-0.50); Eosinophils % (auto) 2.9 %; Hematocrit (blood only) 38.8 % (37.0-47.0); Hemoglobin 12.8 g/dl (12.0-16.0); Immature Granulocytes # (auto) 0.02 K/uL (0.01-0.20); Immature Granulocytes % (auto) 0.4 %; Mean Corpuscular Hemoglobin 28.6 pg (25.0-34.0); Mean Corpuscular Volume 86.8 fL (80.0-100.0); Mean Platelet Volume 9.5 fL (9.4-12.4); Monocytes # (auto) 0.45 K/uL (0.11-0.59); Neutrophils # (auto) 3.51 K/uL (1.40-6.50); Neutrophils % (auto) 62.6 %; Platelet Count 239 K/uL (130-400); RDW Coefficient of Variation 14.1 % (11.5-14.5); RDW Standard Deviation 44.4 fL (36.4-46.3); Red Blood Count 4.47 M/uL (4.20-5.40)
[2024-06-02 19:52] LABS: Alanine Aminotransferase 33 U/L (7-52); Albumin Globulin Ratio 1.3 (0.9-2); Albumin Level 4.2 gm/dl (3.4-5.0); Alkaline Phosphatase 83 U/L (34-104); Anion Gap 7 (3-11); Aspartate Aminotransferase 32 U/L (13-39); BUN Creatinine Ratio 25.6 (10-20); Bilirubin,Total 0.5 mg/dl (0.2-1.0); Blood Urea Nitrogen 20 mg/dl (6-23); Calcium 9.6 mg/dl (8.6-10.3); Carbon Dioxide 24 mmol/L (21-32); Chloride 105 mmol/L (98-107); Est GFR (African American) 91.8 ml/min; Est GFR (Non-African American) 79.2 ml/min; Globulin 3.2 gm/dl (2.5-4.0); Glucose 180 mg/dl (70-99(Fasting)); Potassium 3.7 mmol/L (3.5-5.1); Sodium 136 mmol/L (136-145); Total Protein 7.4 gm/dl (6.0-8.3)
[2024-06-02 23:45] LABS: C Reactive Protein < 0.50 mg/dl (0-0.5)
[2024-06-03] MEDS: OPTIRAY 320 100ml IV ONE (00:11)
[2024-06-03] MEDS: CEFEPIME 2,000 MG/20 ML VIAL IV STA (00:49)
--- NOTE | 2024-06-03 01:18 | Emergency Department Note ---
Impression & Plan Sinusitis, Acute effusion of right ear, Bacterial infection due to Pseudomonas ED Provider Note NAME: MONIQUE RODRIGUEZ AGE: 68 SEX: Female INFORMANT: Patient and family ED PROVIDER(S): Harley Shields MD CHIEF COMPLAINT: Right ear infection, needs IV antibiotics PLAN: Disposition: Admitted Outpatient prescription management: none Referral: None MEDICAL DECISION MAKING: Patient presented because of direction from a primary office. She was evaluated. She does have a mild effusion but no signs of mastoiditis on physical examination. No overt cellulitis, otitis externa, or abnormalities of the pinna. She has some mild tenderness to palpation inferior to the ear without gross abnormality seen otherwise. IV was established. Her CBC was unremarkable. Inflammatory markers were negative. Prior culture reviewed and she is growing a Pseudomonas. CT imaging was performed. Official read is pending at this time due to high volume with the stat rad service. Patient does have right-sided sinusitis. Patient was given IV cefepime based upon culture result. Consultation was made with Dr. Rigo Ayon of the [facility] service. Patient was evaluated in the ER for further management. Care/management discussed with: distribution operations manager Level of care consideration(s): After review of the information above and other included data, I feel the patient requires escalation of care to admission for IV antibiotics Triage Nursing notes: reviewed and agree them. Vital Signs: reviewed and remarkable for no significant abnormalities Additional History obtained from: Family Chronic Medical/Social Conditions affecting care: Immunodeficiency, history of pancreatic cancer Prior/ Outside/ External records reviewed: Primary records reviewed from 05/27/2024 regarding treatment and culture result. She was started on cefdinir for her ears and was given vicodin for her pain Differential Diagnosis: Otitis media, otitis externa, sinusitis, mastoiditis, viral syndrome, tonsillitis, streptococcal pharyngitis, mononucleosis, peritonsillar abscess, retropharyngeal abscess, otitis, pneumonia, influenza, as well as other pathologies. Diagnostics, independently interpreted by me: ECG: none Cardiac Monitoring: none Medical decision rules: none Imaging studies: CT imaging reveals right-sided sinusitis. Official read pending. I refer you to the EMR for further details. HPI: 68 year old Female arrives for evaluation of right ear infection. Patient notes has been on antibiotics 3 times since the month of March. She had a culture done by her primary nasally and was told that she has an infection that requires IV antibiotics. Record review indicates presence of a Pseudomonas infection. Patient states that she was most recently on cefdinir. She does have a history of pancreatic cancer but is not on chemotherapy. Patient also notes some associated pain below the right ear in the neck. Patient does wear hearing aids. Pain is rated 4 out of 10. Pt denies LOC, headache, fevers, chills, diaphoresis, visual changes, chest pain, breathing difficulties, nausea, vomiting, abdominal pain, back pain, numbness, weakness, lymphadenopathy, rash, or other complaints. PAST MEDICAL HISTORY: See Below, pancreatic cancer PAST SURGICAL HISTORY: See Below, SOCIAL HISTORY: See Below, HOME MEDICATIONS: See Below ALLERGIES: See Below VITALS: See Below PHYSICAL EXAMINATION: GENERAL: Awake, alert, well-appearing, in no distress HENT: Normocephalic, atraumatic. Oropharynx unremarkable. Mild right middle ear effusion present. No otitis externa. Pinna and mastoids. Normal. There are some mild associated tenderness just inferior to the right ear without signs of cellulitis, induration or abscess. EYES: Normal conjunctiva. Sclera non-icteric. NECK: Inspection normal. Non-tender. Supple. No nuchal rigidity. FROM. No masses. RESPIRATORY: Clear to auscultation. No wheezes. No rales. Normal respiratory effort. CARDIAC: Normal rate. Normal rhythm. No murmurs. No rubs. Extremities warm and well perfused. Pulses equal. No JVD. GI: Soft, non-distended. No tenderness to palpation. No rebound or guarding. No masses. MUSCULOSKELETAL: Atraumatic. Chest examination reveals no tenderness. The back is symmetrical on inspection without obvious abnormality. There is no CVA tenderness to palpation. No joint edema. LOWER EXTREMITIES: Calves are equal size bilaterally and non-tender. No edema. No discoloration. NEURO: Normal sensorium. No sensory or motor deficits noted. SKIN: No rash or jaundice noted. PROCEDURES: none CRITICAL CARE: none OBSERVATION NOTE: none Past Med/Surg History Problem List (Updated 06/03/24 @ 01:18 by Harley Shields MD) Bacterial infection due to Pseudomonas (Acute) Acute effusion of right ear (Acute) Sinusitis (Acute) BOM (bilateral otitis media) Diarrhea (Acute) Acute dehydration (Acute) Thyroid nodule greater than or equal to 1 cm in diameter incidentally noted on imaging study Twitching HTN (hypertension) Low back pain Neuropathy associated with cancer Hydronephrosis Compression fracture of T9 vertebra (02/12/24) Diagnosed per CT scan results listed in Oncology note dated 02/11/23 Encounter for screening colonoscopy Lightheadedness Pancreatic cancer Headache H/O Whipple procedure (~06/03/23) Mass of head of pancreas Elevated LFTs (Acute) Elevated INR Iron deficiency anemia Immunodeficiency disorder, 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 Essential hypertension (Chronic) Hyperlipidemia (Chronic) Diabetes mellitus (Chronic) Anxiety Insomnia Hypomagnesemia (Acute) Bronchiectasis Atypical chest pain SVT (supraventricular tachycardia) Abnormal EKG (Chronic) Hearing loss (Chronic) Cochlear implant in place (Chronic) Left Allergic rhinitis (Chronic) Asthma (Chronic) Medical History Pseudomonas aeruginosa colonization Nasal - reason for tobramycin PRN History of cataract R/L Anemia Hx of supraventricular tachycardia Frequent sinus infections Gastro-esophageal reflux disease without esophagitis Surgical History H/O Whipple procedure (~06/03/23) Status post right knee replacement (~08/2022) History of esophagogastroduodenoscopy (EGD) Family history of reaction to anesthesia S/P sinus surgery H/O lymph node biopsy S/P tonsillectomy H/O arthroscopic knee surgery S/P myringotomy with insertion of tube S/P hip replacement History of ear surgery S/P bunionectomy H/O section S/P colonoscopy S/P cholecystectomy S/P dilatation and curettage S/P hysterectomy Family History Father Arthritis Asthma Stroke Sister Asthma Mother Stroke Pulmonary fibrosis Social History Smoking Status: Never smoker Second Hand Exposure: No; Do You Dip or Chew Tobacco: No; Hx Alcohol Use: No Hx Substance Use: No Preferred Language: Uzbek Communication Ability: Effective Communication Ability Comment: Cochlear implant and hearing aid Small Stock Facer Required: No Beliefs That Will Affect Care: None marital status: Current Living Situation: Spouse current occupational status: retired How many Children do You have: 1 Feels Safe at Home: Yes Dental Care, Regularly: Yes Physical Activity Frequency: 3-4 Times per Week Seatbelt Use: always Sunscreen Use: Yes Assistive Devices: Cane and Walker Allergies Allergies Allergy/AdvReac Type Severity Reaction Status Date / Time glycine [From Cuvitru] Allergy Intermediate Rash Verified 05/27/24 11:30 immune globulin,alpha (IgA) Allergy Intermediate Rash Verified 05/27/24 11:30 greater than 50 mcg/mL [From Cuvitru] immune globulin,gamma (IgG) Allergy Intermediate Rash Verified 05/27/24 11:30 human [From Cuvitru] nitrofurantoin Allergy Mild Rash Verified 05/27/24 11:30 meperidine AdvReac Severe N/V Verified 05/27/24 11:30 nalbuphine AdvReac Severe Severe Verified 05/27/24 11:30 vomiting oxycodone [From Percocet] AdvReac Severe N/V Verified 05/27/24 11:30 semaglutide [From Ozempic] AdvReac Severe Severe GI Verified 05/27/24 11:30 symptoms tramadol AdvReac Severe N/V Verified 05/27/24 11:30 Home Meds Home Medications Medication Instructions Recorded Confirmed epinephrine 0.3 mg/0.3 mL 0.3 ml IM DIRECTED PRN allergic 05/10/23 06/03/24 injection, auto-injector reactions fluticasone propionate 93 1 spray intranasal BID 05/10/23 06/03/24 mcg/actuation breath activated aerosol (Xhance) cyclosporine 0.05 % eye drops in a 1 drp ophthalmic (eye) Q12H 05/20/23 06/03/24 dropperette immun glob G 10 gram/50 mL(20 0 mg subcut .EVERY OTHER WEEK 08/12/23 06/03/24 %)-pro-IgA 0-50 mcg/mL subcutaneous soln (Hizentra) levalbuterol HCl 0.63 mg/3 mL 0.63 mg inhalation Q6H PRN 11/13/23 06/03/24 solution for nebulization cough/wheezing/shortness of breath gabapentin 100 mg capsule 100 mg PO BID 02/14/24 06/03/24 medical marijuana 1 ea inhalation HS PRN .anx/sleep 02/14/24 06/03/24 insulin glargine U-300 conc 300 12 unit subcut DAILY 03/31/24 06/03/24 unit/mL (1.5 mL) subcutaneous pen (Toudar[employer] SoloStar U-300 Insulin) tizanidine 4 mg capsule 4 mg PO BID PRN Muscle Pain 03/31/24 06/03/24 gabapentin 100 mg capsule 200 mg PO QPM 05/26/24 06/03/24 iddopd-pjoertmk-ygulana 1 cap PO TIDWMEAL 05/26/24 06/03/24 40,000-126,000-168,000 unit capsule, delay rel (Zenpep) Lactobacillus rhamnosus GG 10 1 cap PO DAILY 06/03/24 06/03/24 billion cell capsule (Culturelle) cyanocobalamin (vitamin B-12) 1,000 mcg PO QAM 06/03/24 06/03/24 1,000 mcg tablet ondansetron HCl 8 mg tablet 8 mg PO Q8 PRN Nausea 06/03/24 06/03/24 Previous Rx's Medication Instructions Recorded levalbuterol tartrate 45 2 inh inhalation Q4H PRN shortness 10/01/22 mcg/actuation aerosol inhaler of breath or wheezing #3 Inhalers (Xopenex HFA) blood sugar diagnostic #100 ea 05/21/23 insulin aspart U-100 100 unit/mL 1 sliding scale dose subcut 05/21/23 (3 mL) subcutaneous pen USEASDIRECTD #15 mL acetaminophen 500 mg capsule 1,000 mg (2 x 500 mg) PO Q8H PRN 06/17/23 fever #10 caps naloxone 4 mg/actuation nasal spray 4 mg intranasal Q3M PRN opioid 06/17/23 overdose #2 ea pantoprazole 40 mg tablet,delayed 40 mg PO DAILY #30 tabs 06/17/23 release polyethylene glycol 3350 17 17 g PO DAILY PRN constipation 06/17/23 gram/dose oral powder (Miralax) #119 grams blood pressure test kit-large #1 ea 07/23/23 (Quick Response BP Monitor-Large Cuff kit) simethicone 80 mg chewable tablet 80 mg PO TID PRN abdominal 07/23/23 (Gas Relief (simethicone)) distention #10 tabs meclizine 12.5 mg tablet 12.5 mg PO TID PRN dizziness #30 08/12/23 tabs desloratadine 5 mg tablet 5 mg PO QAM #90 tabs 10/31/23 (Clarinex) umeclidinium 62.5 mcg-vilanterol 1 inh inhalation DAILY #120 ea 12/06/23 25 mcg/actuation powdr for inhalation (Anoro Ellipta) amlodipine 5 mg tablet (Norvasc) 5 mg PO DAILY #30 tabs 05/21/24 cefdinir 300 mg capsule 300 mg PO BID 10 days #20 caps 05/27/24 hydrocodone 5 mg-acetaminophen 325 1 tab PO Q8H PRN c25.9 pancreatic 05/27/24 mg tablet cancer #21 tabs losartan 100 mg tablet 100 mg PO DAILY #90 tabs 05/29/24 alprazolam 0.25 mg tablet (Xanax) 0.25 mg PO DAILY PRN 06/01/24 anxiety/insomnia #30 tabs Results & Data (ED) Vital Signs Vital Signs - 24 hr 06/02/24 18:42 06/02/24 23:31 Temperature 36.6 C Temperature Source Oral Pulse Rate 76 72 Respiratory Rate 18 Respiratory Effort / Characteristics Non-Labored Respiratory Depth Normal Blood Pressure 141/64 H Blood Pressure Mean 89 Pulse Oximetry 98 Oxygen Delivery Method Room Air Sepsis Recent Fever Within 48 Hours No Sepsis New/Unexplained Change in Mental Status No Sepsis Action Taken by Nursing No Action Required Laboratory Data 06/02/24 19:14 06/02/24 19:14 Lab Results 06/02/24 Range/Units 19:14 WBC 5.60 (4.8-10.8) K/ul RBC 4.47 (4.20-5.40) M/uL Hgb 12.8 (12.0-16.0) g/dl Hct 38.8 (37.0-47.0) % MCV 86.8 (80.0-100.0) fL MCH 28.6 (25.0-34.0) pg MCHC 33.0 (32.0-36.0) g/dL RDW Std Deviation 44.4 (36.4-46.3) fL RDW Coeff of [place] 14.1 (11.5-14.5) % Plt Count 239 (130-400) K/uL MPV 9.5 (9.4-12.4) fL Immature Gran % (Auto) 0.4 % Neut % (Auto) 62.6 % Lymph % (Auto) 25.0 % [place] % (Auto) 8.0 % Eos % (Auto) 2.9 % Baso % (Auto) 1.1 % Neut # (Auto) 3.51 (1.40-6.50) K/uL Lymph # (Auto) 1.40 (1.20-3.40) K/uL [place] # (Auto) 0.45 (0.11-0.59) K/uL Eos # (Auto) 0.16 (0.00-0.50) K/uL Baso # (Auto) 0.06 (0.00-0.20) K/uL Immature Gran # (Auto) 0.02 (0.01-0.20) K/uL ESR 43 H (0-30) mm/hr Sodium 136 (136-145) mmol/L Potassium 3.7 (3.5-5.1) mmol/L Chloride 105 (98-107) mmol/L Carbon Dioxide 24 (21-32) mmol/L Anion Gap 7 (3-11) BUN 20 (6-23) mg/dl Creatinine 0.78 (0.6-1.2) mg/dl Est Cr Clr Drug Dosing 69.0 ml/min Est GFR ( Amer) 91.8 ml/min Est GFR (Non-Af Amer) 79.2 ml/min BUN/Creatinine Ratio 25.6 H (10-20) Glucose 180 H (70-99(Fasting)) mg/dl Calcium 9.6 (8.6-10.3) mg/dl Total Bilirubin 0.5 (0.2-1.0) mg/dl AST 32 (13-39) U/L ALT 33 (7-52) U/L Alkaline Phosphatase 83 (34-104) U/L C-Reactive Protein < 0.50 (0-0.5) mg/dl Total Protein 7.4 (6.0-8.3) gm/dl Albumin 4.2 (3.4-5.0) gm/dl Globulin 3.2 (2.5-4.0) gm/dl Albumin/Globulin Ratio 1.3 (0.9-2) Procalcitonin < 0.02 (0-0.5) ng/ml Administered Medications Discontinued Medications Cefepime HCl (Maxipime) 2,000 mg in 20 mls @ 5 mls/min IV NOW STA; Protocol Stop: 06/02/24 23:10 Last Admin: 06/03/24 00:49 Dose: 5 mls/min Documented By: MAR Ioversol (Optiray 320 100ml) 100 ml IV ONCE ONE Stop: 06/03/24 00:12 Last Admin: 06/03/24 00:11 Dose: 93 ml Documented By: PAULY Discharge Plan Visit Data Chief Complaint: Infection Stated Complaint: SEUDONOMIS, EAR INFECTION, NECK PAIN, DOC REF ED Provider: Harley Shields Discharge Problem: Sinusitis, Acute effusion of right ear, Bacterial infection due to Pseudomonas Forms Stand Alone Forms: [facility] Prescriptions Prescriptions: No Action cyclosporine 0.05 % dropperette 1 drp ophthalmic (eye) Q12H Patient Comments: right eye only while using other drops in left eye acetaminophen 500 mg capsule 1,000 mg PO Q8H PRN (Reason: fever) Qty: 10 0RF naloxone 4 mg/actuation spray,non-aerosol 4 mg intranasal Q3M PRN (Reason: opioid overdose) Qty: 2 0RF Rx Instructions: spray 1 dose into ONE nostril; alternate nostrils w each dose until help arrives pantoprazole 40 mg tablet,delayed release (DR/EC) 40 mg PO DAILY Qty: 30 2RF polyethylene glycol 3350 [Miralax] 17 gram/dose powder 17 g PO DAILY PRN (Reason: constipation) Qty: 119 0RF desloratadine [Clarinex] 5 mg tablet 5 mg PO QAM Qty: 90 3RF Anoro Ellipta 62.5-25 mcg/actuation blister with device 1 inh inhalation DAILY Qty: 120 2RF amlodipine [Norvasc] 5 mg tablet 5 mg PO DAILY Qty: 30 2RF hydrocodone-acetaminophen 5-325 mg tablet 1 tab PO Q8H PRN (Reason: c25.9 pancreatic cancer) Qty: 21 0RF losartan 100 mg tablet 100 mg PO DAILY Qty: 90 3RF alprazolam [Xanax] 0.25 mg tablet 0.25 mg PO DAILY PRN (Reason: anxiety/insomnia) Qty: 30 2RF Rx Instructions: 1/2 tab to 1 tab at bedtime gabapentin 100 mg capsule 100 mg PO BID Rx Instructions: Take 1 cap breakfast & 1 tab in afternoon medical marijuana 1 ea inhalation HS PRN (Reason: .anx/sleep) Hizentra 10 gram/50 mL (20 %) solution 0 mg subcut .EVERY OTHER WEEK Rx Instructions: Patient states takes 20 grams per dose meclizine 12.5 mg tablet 12.5 mg PO TID PRN (Reason: dizziness) Qty: 30 1RF [employer]o SoloStar U-300 Insulin 300 unit/mL (1.5 mL) insulin pen 12 unit subcut DAILY (DME) blood pressure test kit-large [Quick Response BP Monitor-[facility]] Kit See Rx Instructions .Route Qty: 1 0RF Rx Instructions: As directed simethicone [Gas Relief (simethicone)] 80 mg tablet,chewable 80 mg PO TID PRN (Reason: abdominal distention) Qty: 10 5RF levalbuterol HCl 0.63 mg/3 mL solution for nebulization 0.63 mg INHALATION Q6H PRN (Reason: cough/wheezing/shortness of breath) levalbuterol tartrate [Xopenex HFA] 45 mcg/actuation HFA aerosol inhaler 2 inh INH Q4H PRN (Reason: shortness of breath or wheezing) Qty: 3 3RF insulin aspart U-100 100 unit/mL (3 mL) insulin pen 1 sliding scale dose subcut USEASDIRECTD Qty: 15 3RF (DME) blood sugar diagnostic Strip See Dose Instructions .ROUTE .MEDSUPPLY Qty: 100 3RF Dose Instruction: As directed Rx Instructions: As directed; check once daily dx: E11.9 cefdinir 300 mg capsule 300 mg PO BID 10 Days Qty: 20 0RF tizanidine 4 mg capsule 4 mg PO BID PRN (Reason: Muscle Pain) epinephrine 0.3 mg/0.3 mL auto-injector 0.3 ml IM DIRECTED PRN (Reason: allergic reactions) Xhance 93 mcg/actuation aerosol breath activated 1 spray INTRANASAL BID gabapentin 100 mg capsule 200 mg PO QPM Zenpep 40,000-126,000- 168,000 unit capsule,delayed release(DR/EC) 1 cap PO TIDWMEAL Rx Instructions: Does not always eat tid ondansetron HCl 8 mg tablet 8 mg PO Q8 PRN (Reason: Nausea) cyanocobalamin (vitamin B-12) 1,000 mcg tablet 1,000 mcg PO QAM Culturelle 10 billion cell Capsule 1 cap PO DAILY Referrals Referrals: Slim Rhodes DO [Primary Care Provider] -
--- NOTE | 2024-06-03 01:22 | History & Physical Report ---
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- Bacteria sensitive to cefepime, Zosyn, tobramycin and gentamicin Patient reports that she has been treated with tobramycin antibiotic and saline irrigation via [facility] in the past Continue cefepime 2 g IV every 8 hours, begun in the ED Consult ENT Coordinate care with [facility] CVID- Patient receives immunoglobulin infusion every 2 weeks, with most recent performed on 06/01/2024 Pancreatic cancer/status post Whipple procedure/GERD- No current chemotherapy Continue pancreatic enzymes Continue pantoprazole Continue probiotics Diabetes mellitus- Glucose 180 upon admission Verification of glargine U300 dose pending Convert to standard glargine when verified Placed on Accu-Cheks with NovoLog SSI as noted Hypertension- Continue amlodipine and losartan with hold parameters Peripheral neuropathy-continue gabapentin, acetaminophen, and hydrocodone- acetaminophen as noted History of Present Illness Chief Complaint: The patient is referred to the emergency department by her outpatient physician due to a Pseudomonas sinus infection requiring IV antibiotics for treatment Primary Care Provider: Slim Rhodes DO The patient is a 68-year-old female with a past medical history including recurrent Pseudomonas sinus infection, common variable immunodeficiency disorder, hypertension, neuropathy associate with cancer, pancreatic cancer, status post Whipple procedure 06/03/2023, hyperlipidemia, diabetes mellitus, anxiety, SVT, and cochlear implant. The patient reports that she has had recurrent Pseudomonas sinus infections, including treatment at [place] with tobramycin in saline irrigation. In the outpatient setting she had a sinus culture performed, which is growing Pseudomonas fluoresc/Putida. She had been on 3 different courses of oral antibiotics recently, including cefdinir, and is referred to the ED for evaluation for admission for IV antibiotics. Allergies Allergy/AdvReac Type Severity Reaction Status Date / Time glycine [From Cuvitru] Allergy Intermediate Rash Verified 05/27/24 11:30 immune globulin,alpha (IgA) Allergy Intermediate Rash Verified 05/27/24 11:30 greater than 50 mcg/mL [From Cuvitru] immune globulin,gamma (IgG) Allergy Intermediate Rash Verified 05/27/24 11:30 human [From Cuvjuaquinu] nitrofurantoin Allergy Mild Rash Verified 05/27/24 11:30 meperidine AdvReac Severe N/V Verified 05/27/24 11:30 nalbuphine AdvReac Severe Severe Verified 05/27/24 11:30 vomiting oxycodone [From Percocet] AdvReac Severe N/V Verified 05/27/24 11:30 semaglutide [From Ozempic] AdvReac Severe Severe GI Verified 05/27/24 11:30 symptoms tramadol AdvReac Severe N/V Verified 05/27/24 11:30 Home Medications Medication Instructions Recorded Confirmed Type levalbuterol tartrate 45 2 inh inhalation Q4H PRN shortness 10/01/22 06/03/24 Rx mcg/actuation aerosol inhaler of breath or wheezing #3 Inhalers (Xopenex HFA) epinephrine 0.3 mg/0.3 mL 0.3 ml IM DIRECTED PRN allergic 05/10/23 06/03/24 History injection, auto-injector reactions fluticasone propionate 93 1 spray intranasal BID 05/10/23 06/03/24 History mcg/actuation breath activated aerosol (Xhance) cyclosporine 0.05 % eye drops in a 1 drp ophthalmic (eye) Q12H 05/20/23 06/03/24 History dropperette blood sugar diagnostic #100 ea 05/21/23 06/03/24 Rx insulin aspart U-100 100 unit/mL 1 sliding scale dose subcut 05/21/23 06/03/24 Rx (3 mL) subcutaneous pen USEASDIRECTD #15 mL acetaminophen 500 mg capsule 1,000 mg (2 x 500 mg) PO Q8H PRN 06/17/23 06/03/24 Rx fever #10 caps naloxone 4 mg/actuation nasal spray 4 mg intranasal Q3M PRN opioid 06/17/23 06/03/24 Rx overdose #2 ea pantoprazole 40 mg tablet,delayed 40 mg PO DAILY #30 tabs 06/17/23 06/03/24 Rx release polyethylene glycol 3350 17 17 g PO DAILY PRN constipation 06/17/23 06/03/24 Rx gram/dose oral powder (Miralax) #119 grams blood pressure test kit-large #1 ea 07/23/23 06/03/24 Rx (Quick Response BP Monitor-Large Cuff kit) simethicone 80 mg chewable tablet 80 mg PO TID PRN abdominal 07/23/23 06/03/24 Rx (Gas Relief (simethicone)) distention #10 tabs immun glob G 10 gram/50 mL(20 0 mg subcut .EVERY OTHER WEEK 08/12/23 06/03/24 History %)-pro-IgA 0-50 mcg/mL subcutaneous soln (Hizentra) meclizine 12.5 mg tablet 12.5 mg PO TID PRN dizziness #30 08/12/23 06/03/24 Rx tabs desloratadine 5 mg tablet 5 mg PO QAM #90 tabs 10/31/23 06/03/24 Rx (Clarinex) levalbuterol HCl 0.63 mg/3 mL 0.63 mg inhalation Q6H PRN 11/13/23 06/03/24 History solution for nebulization cough/wheezing/shortness of breath umeclidinium 62.5 mcg-vilanterol 1 inh inhalation DAILY #120 ea 12/06/23 06/03/24 Rx 25 mcg/actuation powdr for inhalation (Anoro Ellipta) gabapentin 100 mg capsule 100 mg PO BID 02/14/24 06/03/24 History medical marijuana 1 ea inhalation HS PRN .anx/sleep 02/14/24 06/03/24 History insulin glargine U-300 conc 300 12 unit subcut DAILY 03/31/24 06/03/24 History unit/mL (1.5 mL) subcutaneous pen (Toudarwin SoloStar U-300 Insulin) tizanidine 4 mg capsule 4 mg PO BID PRN Muscle Pain 03/31/24 06/03/24 History amlodipine 5 mg tablet (Norvasc) 5 mg PO DAILY #30 tabs 05/21/24 06/03/24 Rx gabapentin 100 mg capsule 200 mg PO QPM 05/26/24 06/03/24 History xcvjbd-svwaqcsp-hdolmuv 1 cap PO TIDWMEAL 05/26/24 06/03/24 History 40,000-126,000-168,000 unit capsule, delay rel (Zenpep) cefdinir 300 mg capsule 300 mg PO BID 10 days #20 caps 05/27/24 06/03/24 Rx hydrocodone 5 mg-acetaminophen 325 1 tab PO Q8H PRN c25.9 pancreatic 05/27/24 06/03/24 Rx mg tablet cancer #21 tabs losartan 100 mg tablet 100 mg PO DAILY #90 tabs 05/29/24 06/03/24 Rx alprazolam 0.25 mg tablet (Xanax) 0.25 mg PO DAILY PRN 06/01/24 06/03/24 Rx anxiety/insomnia #30 tabs Lactobacillus rhamnosus GG 10 1 cap PO DAILY 06/03/24 06/03/24 History billion cell capsule (Culturelle) cyanocobalamin (vitamin B-12) 1,000 mcg PO QAM 06/03/24 06/03/24 History 1,000 mcg tablet ondansetron HCl 8 mg tablet 8 mg PO Q8 PRN Nausea 06/03/24 06/03/24 History Past Med/Surg History Problem List (Updated 06/03/24 @ 01:18 by Harley Shields MD) Bacterial infection due to Pseudomonas (Acute) Acute effusion of right ear (Acute) Sinusitis (Acute) BOM (bilateral otitis media) Diarrhea (Acute) Acute dehydration (Acute) Thyroid nodule greater than or equal to 1 cm in diameter incidentally noted on imaging study Twitching HTN (hypertension) Low back pain Neuropathy associated with cancer Hydronephrosis Compression fracture of T9 vertebra (02/12/24) Diagnosed per CT scan results listed in Oncology note dated 02/11/23 Encounter for screening colonoscopy Lightheadedness Pancreatic cancer Headache H/O Whipple procedure (~06/03/23) Mass of head of pancreas Elevated LFTs (Acute) Elevated INR Iron deficiency anemia Immunodeficiency disorder, 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 Essential hypertension (Chronic) Hyperlipidemia (Chronic) Diabetes mellitus (Chronic) Anxiety Insomnia Hypomagnesemia (Acute) Bronchiectasis Atypical chest pain SVT (supraventricular tachycardia) Abnormal EKG (Chronic) Hearing loss (Chronic) Cochlear implant in place (Chronic) Left Allergic rhinitis (Chronic) Asthma (Chronic) Medical History Pseudomonas aeruginosa colonization Nasal - reason for tobramycin PRN History of cataract R/L Anemia Hx of supraventricular tachycardia Frequent sinus infections Gastro-esophageal reflux disease without esophagitis Surgical History H/O Whipple procedure (~06/03/23) Status post right knee replacement (~08/2022) History of esophagogastroduodenoscopy (EGD) Family history of reaction to anesthesia S/P sinus surgery H/O lymph node biopsy S/P tonsillectomy H/O arthroscopic knee surgery S/P myringotomy with insertion of tube S/P hip replacement History of ear surgery S/P bunionectomy H/O section S/P colonoscopy S/P cholecystectomy S/P dilatation and curettage S/P hysterectomy Family History Father Arthritis Asthma Stroke Sister Asthma Mother Stroke Pulmonary fibrosis Social History Smoking Status: Never smoker Second Hand Exposure: No; Do You Dip or Chew Tobacco: No; Hx Alcohol Use: No Hx Substance Use: Yes Last Used Substance: Days (ago) Last Used Substance Other:: 14 days ago medical marijuana Preferred Language: Moldovan Communication Ability: Effective Communication Ability Comment: coculear implants Tool Grinder Required: No Beliefs That Will Affect Care: None marital status: Current Living Situation: Spouse Current Living Situation Comment: lives with Robbie current occupational status: retired How many Children do You have: 1 Feels Safe at Home: Yes Dental Care, Regularly: Yes Physical Activity Frequency: 3-4 Times per Week Seatbelt Use: always Sunscreen Use: Yes Assistive Devices: None Review of Systems Review of Systems: The patient denies chest pain, palpitations, shortness of breath, dyspnea on exertion, cough, lower extremity swelling, nausea, vomiting, diarrhea , constipation, abdominal pain, pelvic pain, blood in urine or stool, dysuria, urinary frequency or urgency, lightheadedness, dizziness, headache, memory loss, loss of consciousness, rash, abnormal bruising or bleeding, imbalance, focal weakness, numbness or tingling in arms or legs, generalized art hralgias or myalgias, back or neck pain, or night sweats. The review of systems is otherwise negative other than for that already noted above, and at least 10 systems have been reviewed. Physical Exam Physical Exam: The patient is awake, alert and oriented 3, well developed and well nourished, normocephalic and atraumatic, lying in bed and in no acute distress. HEENT--PERRL, EOMI, mucous membranes and oropharynx mildly dry. Mild right ear effusion with erythema, mild right mastoid tenderness Neck--supple. No JVD. No bruits. Thyroid normal, trachea midline, no adenopathy. Heart--normal S1 and S2. No murmurs, rubs or gallops. Lungs--clear bilaterally, no respiratory distress, no accessory muscle use. Abdomen--normal bowel sounds and soft. Nontender. Nondistended, no hernias or masses, no organomegaly. Extremities-- No edema. There are good distal pulses b/l. Dermatologic--normal skin turgor, normal color, no abnormal lymph nodes, no rash. Neurologic--cranial nerves II through XII grossly intact. Rheumatologic--normal range of motion. Psychiatric--normal affect. Results & Data Results & Data Vital Signs (Past 12 Hours) Vital Signs Temp Pulse Resp BP Pulse Ox O2 Del Method 06/02/24 23:31 72 06/02/24 18:42 36.6 C 76 18 141/64 H 98 Room Air Laboratory Results Laboratory Results WBC 5.60 K/ul (4.8-10.8) 06/02/24 19:14 RBC 4.47 M/uL (4.20-5.40) 06/02/24 19:14 Hgb 12.8 g/dl (12.0-16.0) 06/02/24 19:14 Hct 38.8 % (37.0-47.0) 06/02/24 19:14 MCV 86.8 fL (80.0-100.0) 06/02/24 19:14 MCH 28.6 pg (25.0-34.0) 06/02/24 19:14 MCHC 33.0 g/dL (32.0-36.0) 06/02/24 19:14 RDW Std Deviation 44.4 fL (36.4-46.3) 06/02/24 19:14 RDW Coeff of [place] 14.1 % (11.5-14.5) 06/02/24 19:14 Plt Count 239 K/uL (130-400) 06/02/24 19:14 MPV 9.5 fL (9.4-12.4) 06/02/24 19:14 Immature Gran % (Auto) 0.4 % 06/02/24 19:14 Neut % (Auto) 62.6 % 06/02/24 19:14 Lymph % (Auto) 25.0 % 06/02/24 19:14 Door % (Auto) 8.0 % 06/02/24 19:14 Eos % (Auto) 2.9 % 06/02/24 19:14 Baso % (Auto) 1.1 % 06/02/24 19:14 Neut # (Auto) 3.51 K/uL (1.40-6.50) 06/02/24 19:14 Lymph # (Auto) 1.40 K/uL (1.20-3.40) 06/02/24 19:14 Door # (Auto) 0.45 K/uL (0.11-0.59) 06/02/24 19:14 Eos # (Auto) 0.16 K/uL (0.00-0.50) 06/02/24 19:14 Baso # (Auto) 0.06 K/uL (0.00-0.20) 06/02/24 19:14 Immature Gran # (Auto) 0.02 K/uL (0.01-0.20) 06/02/24 19:14 ESR 43 mm/hr (0-30) H 06/02/24 19:14 Sodium 136 mmol/L (136-145) 06/02/24 19:14 Potassium 3.7 mmol/L (3.5-5.1) 06/02/24 19:14 Chloride 105 mmol/L (98-107) 06/02/24 19:14 Carbon Dioxide 24 mmol/L (21-32) 06/02/24 19:14 Anion Gap 7 (3-11) 06/02/24 19:14 BUN 20 mg/dl (6-23) 06/02/24 19:14 Creatinine 0.78 mg/dl (0.6-1.2) 06/02/24 19:14 Est Cr Clr Drug Dosing 69.0 ml/min 06/02/24 19:14 Est GFR ( Amer) 91.8 ml/min 06/02/24 19:14 Est GFR (Non-Af Amer) 79.2 ml/min 06/02/24 19:14 BUN/Creatinine Ratio 25.6 (10-20) H 06/02/24 19:14 Glucose 180 mg/dl (70-99(Fasting)) H 06/02/24 19:14 POC Glucose 130 mg/dl (70-99) H 06/03/24 03:57 Calcium 9.6 mg/dl (8.6-10.3) 06/02/24 19:14 Total Bilirubin 0.5 mg/dl (0.2-1.0) 06/02/24 19:14 AST 32 U/L (13-39) 06/02/24 19:14 ALT 33 U/L (7-52) 06/02/24 19:14 Alkaline Phosphatase 83 U/L (34-104) 06/02/24 19:14 C-Reactive Protein < 0.50 mg/dl (0-0.5) 06/02/24 19:14 Total Protein 7.4 gm/dl (6.0-8.3) 06/02/24 19:14 Albumin 4.2 gm/dl (3.4-5.0) 06/02/24 19:14 Globulin 3.2 gm/dl (2.5-4.0) 06/02/24 19:14 Albumin/Globulin Ratio 1.3 (0.9-2) 06/02/24 19:14 Procalcitonin < 0.02 ng/ml (0-0.5) 06/02/24 19:14 Impressions Soft Tissue Neck CT 06/02/24 23:07 Exam(s): CT NECK With Contrast IV Amt: 93 ml optiray 320 EXAM: CT Neck With Intravenous Contrast CLINICAL HISTORY: Reason for exam: right ear pain, infection. TECHNIQUE: Axial computed tomography images of the neck with intravenous contrast. CTDI is 13.62 mGy and DLP is 402.81 mGy-cm. Automated exposure control was utilized for the study. A dose lowering technique was utilized adhering to the principles of ALARA. CONTRAST: Patient received 93 ml optiray 320 of IV contrast COMPARISON: No relevant prior studies available. FINDINGS: Oropharynx: Unremarkable. No significant tonsillar enlargement. No peritonsillar abscess. Hypopharynx: Unremarkable. Larynx: Unremarkable. Normal epiglottis. Trachea: Unremarkable. Retropharyngeal space: Unremarkable. Submandibular/parotid glands: Unremarkable. Glands are normal in size. Thyroid: Small calcified right thyroid nodule. Bones/joints: No acute fracture. Left mastoidectomy with cochlear implant. Soft tissues: Unremarkable. Vasculature: No acute findings. There is a right IJ approach Port-A- Cath on the right chest wall. Lymph nodes: Unremarkable. No lymphadenopathy. Lung apices: Unremarkable as visualized. Paranasal sinuses: Chronic right maxillary sinusitis. IMPRESSION: Normal no evidence of acute cervical soft tissue pathology. No evidence of right ear pathology. Electronically signed by: Ava Ambrosio MD 06/03/24 02:05 AM Code Status & VTE Plan Code Status Full code VTE Prophylaxis Plan VTE Prophylaxis will be ordered: Yes PG Care Time/CCT Total # of Minutes Spent Total Time Spent with Patient: Total time spent is greater than 50% in coordination of care (as documented) at patient's floor/unit and/or counseling patient: Coding Level of Care Code 67137 INT INP/OBS CARE 3/75MIN Diagnoses Bacterial infection due to Pseudomonas A49.8 Acute effusion of right ear H65.191 Sinusitis J32.9 Immunodeficiency disorder, common variable D83.9 HTN (hypertension) I10 Pancreatic cancer C25.9 H/O Whipple procedure Z90.410; Z90.49
--- NOTE | 2024-06-03 02:06 | CT Scan Report ---
Exam(s): CT NECK With Contrast IV Amt: 93 ml optiray 320 EXAM: CT Neck With Intravenous Contrast CLINICAL HISTORY: Reason for exam: right ear pain, infection. TECHNIQUE: Axial computed tomography images of the neck with intravenous contrast. CTDI is 13.62 mGy and DLP is 402.81 mGy-cm. Automated exposure control was utilized for the study. A dose lowering technique was utilized adhering to the principles of ALARA. CONTRAST: Patient received 93 ml optiray 320 of IV contrast COMPARISON: No relevant prior studies available. FINDINGS: Oropharynx: Unremarkable. No significant tonsillar enlargement. No peritonsillar abscess. Hypopharynx: Unremarkable. Larynx: Unremarkable. Normal epiglottis. Trachea: Unremarkable. Retropharyngeal space: Unremarkable. Submandibular/parotid glands: Unremarkable. Glands are normal in size. Thyroid: Small calcified right thyroid nodule. Bones/joints: No acute fracture. Left mastoidectomy with cochlear implant. Soft tissues: Unremarkable. Vasculature: No acute findings. There is a right IJ approach Port-A- Cath on the right chest wall. Lymph nodes: Unremarkable. No lymphadenopathy. Lung apices: Unremarkable as visualized. Paranasal sinuses: Chronic right maxillary sinusitis. IMPRESSION: Normal no evidence of acute cervical soft tissue pathology. No evidence of right ear pathology. Electronically signed by: Ava Ambrosio MD 06/03/24 02:05 AM
[2024-06-03] MEDS: PANTOprazole 40 MG in SYRINGE 0 ML IV ONE (02:44)
[2024-06-03] MEDS ORDERED: GLUCOSE 10 TAB/TUBE PO PRN (04:07)
[2024-06-03] MEDS ORDERED: DEXTROSE 50% 50 ML SYRINGE IV PRN (04:07)
[2024-06-03] MEDS ORDERED: LEVALBUTEROL HCL 0.63 MG/3 ML NEB INH PRN (04:07)
[2024-06-03] MEDS ORDERED: POLYETHYLENE (MIRALAX) 17 GM PACK PO PRN (04:07)
[2024-06-03] MEDS ORDERED: ALPRAZolam 0.25 MG TABLET PO PRN (04:07)
[2024-06-03] MEDS ORDERED: CARBOHYDRATES FOR HYPOGLYCEMIA PO PRN (04:07)
[2024-06-03] MEDS ORDERED: LEVALBUTEROL TARTRATE 15 GM HFA.AER.AD INH PRN (04:07)
[2024-06-03] MEDS ORDERED: GLUCAGON FOR INJ 1 MG VIAL SQ PRN (04:07)
[2024-06-03] MEDS ORDERED: GLUCOSE 40% GEL 15 GM TUBE PO PRN (04:07)
[2024-06-03] MEDS ORDERED: ARTIFICIAL TEARS OP PRN (04:33)
[2024-06-03] MEDS ORDERED: HEPARIN 100 UNIT/ML 5ML FLUSH FLUSH PRN (06:30)
--- NOTE | 2024-06-03 07:32 | Hospitalist Progress Note ---
Date of Service June 03, 2024 Assessment & Plan (1) Bacterial infection due to Pseudomonas: Plan: Recurrent sinusitis, recient culture with Pseudomonas fluoresc/putida- preceding culture pt did have outpt fever not clear if in context of chemo, fever since resolved not with significant sinus drainage, headache or sinus pressure Bacteria sensitive to cefepime, Zosyn, tobramycin and gentamicin- spoke to antibiotic stewarship typically also sensitive to quinalones, change antibiotic to levaquin Patient reports that she has been treated with tobramycin antibiotic and saline irrigation via [facility] in the past Pt plans to follow up and Coordinate care with [facility] (2) Acute effusion of right ear: Plan: at examination does not inherently appear to be acute otitis media, ? chronic effusion (3) Immunodeficiency disorder, common variable: Plan: CVID- Patient receives immunoglobulin infusion every 2 weeks, with most recent performed on 06/01/2024 (4) HTN (hypertension): Plan: Hypertension- Continue amlodipine and losartan with hold parameters (5) Pancreatic cancer: Plan: Pancreatic cancer/status post Whipple procedure/GERD- No current chemotherapy Continue pancreatic enzymes, did adjust dosing Continue pantoprazole Continue probiotics (6) Diabetes mellitus: Plan: Diabetes mellitus- Glucose 180 upon admission pt states uses a loose sliding scale as does frequently have symptomatic hypoglycemia Peripheral neuropathy-continue gabapentin, acetaminophen, and hydrocodone- acetaminophen as noted Admission and Anticipated Discharge Date Admission Date: June 03, 2024 Subjective pt is in no appreciable distress, she is anxious about diagnosis and does have upcoming ENT appointment to consider myringotomy tubes is at bedside and updated Physical Exam Physical Exam: awake and alert some tenderness to posterior neck, reproducible to touch, seems more muscular ears examined bilaterally, left TM scarred but no fluid behind right TM scarred, some opaque fluid, no erythema or other changes neck no LN no stridor oral is clear Results & Data Results & Data Vital Signs (Past 12 Hours) Vital Signs Temp Pulse Pulse Resp BP BP Pulse Ox 06/03/24 07:21 57 L 06/03/24 04:20 97.7 F 66 20 122/76 96 06/03/24 03:45 72 06/03/24 03:06 64 16 147/78 H 95 06/03/24 01:50 68 22 164/81 H 95 06/02/24 23:31 72 O2 Del Method 06/03/24 07:21 07/10/24 04:20 Room Air 06/03/24 03:45 06/03/24 03:06 Room Air 06/03/24 01:50 Room Air 06/02/24 23:31 Laboratory Results review cbc, no leukocytosis review chemistry PG Care Time/CCT Total # of Minutes Spent Total Time Spent with Patient: Total time spent is greater than 50% in coordination of care (as documented) at patient's floor/unit and/or counseling patient: Coding Level of Care Code 55007 SUB INP/OBS CARE 3/50MIN Diagnoses Bacterial infection due to Pseudomonas A49.8 Acute effusion of right ear H65.191 Immunodeficiency disorder, common variable D83.9 HTN (hypertension) I10 Pancreatic cancer C25.9 Diabetes mellitus E11.9
[2024-06-03] MEDS: ADVANCED PROBIOTIC 625 MG CAPSULE PO SCH (10:01)
[2024-06-03] MEDS: amLODIPine BESYLATE 5 MG TAB PO SCH (10:01)
[2024-06-03] MEDS: PANCREAZE (LIPASE 10,500U) CAP PO SCH (10:02)
[2024-06-03] MEDS: tiZANidine HCL 4 MG TABLET PO PRN (10:02)
[2024-06-03] MEDS: CYANOCOBALAMIN (B-12) 500 MCG TABLET PO SCH (10:02)
[2024-06-03 10:03] LABS: Estimated Average Glucose 146 mg/dl; Hemoglobin A1C 6.7 % (4.5-5.6)
[2024-06-03] MEDS: LOSARTAN POTASSIUM 50 MG TAB PO SCH (10:03)
[2024-06-03] MEDS: GABAPENTIN 100 MG CAP PO SCH ×2 (10:03→22:00)
[2024-06-03] MEDS: CEFEPIME 2,000 MG in SYRINGE 0 ML IV SCH (10:04)
[2024-06-03] MEDS: FLUTICASONE PROPIONATE NA SPR 16 GM BTL SCH (10:05)
[2024-06-03] MEDS: LORATADINE 10 MG TAB PO SCH (10:05)
[2024-06-03] MEDS: PANTOprazole 40 MG TAB PO SCH (10:06)
[2024-06-03] MEDS: UMECLIDINIUM/VILANTEROL 62.5/25MCG 7 PUFFS/INHALER INH SCH (10:06)
[2024-06-03] MEDS: INSULIN ASPART PER UNIT CHARGE SC SCH (10:11)
[2024-06-03] MEDS ORDERED: PANCREAZE (LIPASE 10,500U) CAP PO SCH (11:30)
[2024-06-03] MEDS: PANCREAZE (LIPASE 10,500U) CAP PO PRN (12:45)
[2024-06-03] MEDS: levoFLOXacin/D5W 500 MG/100 ML BAG IV SCH (22:01)
[2024-06-03] MEDS: ACETAMINOPHEN 500 MG TAB PO PRN (22:05)
[2024-06-04] MEDS: ONDANSETRON INJ 2 MG/ML 2 ML VIAL IV STA (06:39)
[2024-06-04] MEDS: HYDROCODONE/ACETAMOPHEN 5/325MG TAB PO PRN (06:40)
[2024-06-04] MEDS: MECLIZINE 12.5 MG TAB PO PRN (08:40)
[2024-06-04] MEDS: SIMETHICONE 80 MG CHEW PO PRN (08:41)
[2024-06-04 08:52] LABS: Basophils # (auto) 0.06 K/uL (0.00-0.20); Basophils % (auto) 1.2 %; Eosinophils # (auto) 0.21 K/uL (0.00-0.50); Eosinophils % (auto) 4.2 %; Hematocrit (blood only) 38.4 % (37.0-47.0); Hemoglobin 12.8 g/dl (12.0-16.0); Immature Granulocytes # (auto) 0.01 K/uL (0.01-0.20); Immature Granulocytes % (auto) 0.2 %; Lymphocytes # (auto) 1.15 K/uL (1.20-3.40); Lymphocytes % (auto) 22.9 %; Mean Corpuscular Hemoglobin 28.9 pg (25.0-34.0); Mean Corpuscular Hgb Conc 33.3 g/dL (32.0-36.0); Mean Corpuscular Volume 86.7 fL (80.0-100.0); Mean Platelet Volume 9.5 fL (9.4-12.4); Monocytes # (auto) 0.52 K/uL (0.11-0.59); Monocytes % (auto) 10.3 %; Neutrophils # (auto) 3.08 K/uL (1.40-6.50); Neutrophils % (auto) 61.2 %; Platelet Count 212 K/uL (130-400); RDW Coefficient of Variation 13.7 % (11.5-14.5); RDW Standard Deviation 43.5 fL (36.4-46.3); Red Blood Count 4.43 M/uL (4.20-5.40); White Blood Count 5.03 K/ul (4.8-10.8)
[2024-06-04 09:14] LABS: BUN Creatinine Ratio 20.7 (10-20); Calcium 9.5 mg/dl (8.6-10.3); Est GFR (African American) 86.4 ml/min; Est GFR (Non-African American) 74.6 ml/min; Magnesium 1.6 mg/dl (1.7-2.4); Phosphorus 3.8 mg/dl (2.5-4.9)
[2024-06-04] MEDS ORDERED: ONDANSETRON INJ 2 MG/ML 2 ML VIAL IV STA (12:35)
--- NOTE | 2024-06-04 15:06 | Discharge Summary ---
Discharge Summary Date of Service June 04, 2024 Principal Dx & Hospital Course #1 = Principal Diagnosis (1) Bacterial infection due to Pseudomonas: Recurrent sinusitis, recent culture with Pseudomonas fluoresc/putida- preceding culture pt did have outpt fever not clear if in context of chemo, fever since resolved not with significant sinus drainage, headache or sinus pressure Bacteria sensitive to cefepime, Zosyn, tobramycin and gentamicin- spoke to antibiotic stewardship typically also sensitive to quinolones, change antibiotic to Levaquin tolerated dose iv and will be on po levaquin Patient reports that she has been treated with tobramycin antibiotic and saline irrigation via [facility] in the past Pt plans to follow up and Coordinate care with [facility], burned CD for patient reportedly has appointment next week (2) Acute effusion of right ear: at examination does not inherently appear to be acute otitis media, ? chronic effusion. repeat eval on 06/04/24 with some improvement (3) Immunodeficiency disorder, common variable: CVID- Patient receives immunoglobulin infusion every 2 weeks, with most recent performed on 06/01/2024 (4) HTN (hypertension): Hypertension- Continue amlodipine and losartan with hold parameters (5) Pancreatic cancer: Pancreatic cancer/status post Whipple procedure/GERD- No current chemotherapy Continue pancreatic enzymes, did adjust dosing Continue pantoprazole Continue probiotics (6) Diabetes mellitus: Diabetes mellitus- Glucose 180 upon admission pt states uses a loose sliding scale as does frequently have symptomatic hypoglycemia Peripheral neuropathy-continue gabapentin, acetaminophen, and hydrocodone- acetaminophen as noted Admission HPI Per Admitting Provider The patient is a 68-year-old female with a past medical history including recurrent Pseudomonas sinus infection, common variable immunodeficiency disorder, hypertension, neuropathy associate with cancer, pancreatic cancer, status post Whipple procedure 06/03/2023, hyperlipidemia, diabetes mellitus, anxiety, SVT, and cochlear implant. The patient reports that she has had recurrent Pseudomonas sinus infections, including treatment at [facility] with tobramycin in saline irrigation. In the outpatient setting she had a sinus culture performed, which is growing Pseudomonas fluoresc/Putida. She had been on 3 different courses of oral antibiotics recently, including cefdinir, and is referred to the ED for evaluation for admission for IV antibiotics. Discharge Exam awake and alert TM looks to have smaller effusion still with neck pain Updated Medication List Medication Instructions Recorded Confirmed Type levalbuterol tartrate 45 2 inh inhalation Q4H PRN shortness 10/01/22 06/03/24 Rx mcg/actuation aerosol inhaler of breath or wheezing #3 Inhalers (Xopenex HFA) epinephrine 0.3 mg/0.3 mL 0.3 ml IM DIRECTED PRN allergic 05/10/23 06/03/24 History injection, auto-injector reactions fluticasone propionate 93 1 spray intranasal BID 05/10/23 06/03/24 History mcg/actuation breath activated aerosol (Xhance) cyclosporine 0.05 % eye drops in a 1 drp ophthalmic (eye) Q12H 05/20/23 06/03/24 History dropperette blood sugar diagnostic #100 ea 05/21/23 06/03/24 Rx insulin aspart U-100 100 unit/mL 1 sliding scale dose subcut 05/21/23 06/03/24 Rx (3 mL) subcutaneous pen USEASDIRECTD #15 mL acetaminophen 500 mg capsule 1,000 mg (2 x 500 mg) PO Q8H PRN 06/17/23 06/03/24 Rx fever #10 caps naloxone 4 mg/actuation nasal spray 4 mg intranasal Q3M PRN opioid 06/17/23 06/03/24 Rx overdose #2 ea pantoprazole 40 mg tablet,delayed 40 mg PO DAILY #30 tabs 06/17/23 06/03/24 Rx release polyethylene glycol 3350 17 17 g PO DAILY PRN constipation 06/17/23 06/03/24 Rx gram/dose oral powder (Miralax) #119 grams blood pressure test kit-large #1 ea 07/23/23 06/03/24 Rx (Quick Response BP Monitor-Large Cuff kit) simethicone 80 mg chewable tablet 80 mg PO TID PRN abdominal 07/23/23 06/03/24 Rx (Gas Relief (simethicone)) distention #10 tabs immun glob G 10 gram/50 mL(20 0 mg subcut .EVERY OTHER WEEK 08/12/23 06/03/24 History %)-pro-IgA 0-50 mcg/mL subcutaneous soln (Hizentra) meclizine 12.5 mg tablet 12.5 mg PO TID PRN dizziness #30 08/12/23 06/03/24 Rx tabs desloratadine 5 mg tablet 5 mg PO QAM #90 tabs 10/31/23 06/03/24 Rx (Clarinex) levalbuterol HCl 0.63 mg/3 mL 0.63 mg inhalation Q6H PRN 11/13/23 06/03/24 History solution for nebulization cough/wheezing/shortness of breath umeclidinium 62.5 mcg-vilanterol 1 inh inhalation DAILY #120 ea 12/06/23 06/03/24 Rx 25 mcg/actuation powdr for inhalation (Anoro Ellipta) gabapentin 100 mg capsule 100 mg PO BID 02/14/24 06/03/24 History medical marijuana 1 ea inhalation HS PRN .anx/sleep 02/14/24 06/03/24 History insulin glargine U-300 conc 300 12 unit subcut DAILY 03/31/24 06/03/24 History unit/mL (1.5 mL) subcutaneous pen (Toujeo SoloStar U-300 Insulin) tizanidine 4 mg capsule 4 mg PO BID PRN Muscle Pain 03/31/24 06/03/24 History amlodipine 5 mg tablet (Norvasc) 5 mg PO DAILY #30 tabs 05/21/24 06/03/24 Rx gabapentin 100 mg capsule 200 mg PO QPM 05/26/24 06/03/24 History bjlopw-hefqgqlj-hltkqai 1 cap PO TIDWMEAL 05/26/24 06/03/24 History 40,000-126,000-168,000 unit capsule, delay rel (Zenpep) hydrocodone 5 mg-acetaminophen 325 1 tab PO Q8H PRN c25.9 pancreatic 05/27/24 06/03/24 Rx mg tablet cancer #21 tabs losartan 100 mg tablet 100 mg PO DAILY #90 tabs 05/29/24 06/03/24 Rx alprazolam 0.25 mg tablet (Xanax) 0.25 mg PO DAILY PRN 06/01/24 06/03/24 Rx anxiety/insomnia #30 tabs Lactobacillus rhamnosus GG 10 1 cap PO DAILY 06/03/24 06/03/24 History billion cell capsule (Culturelle) cyanocobalamin (vitamin B-12) 1,000 mcg PO QAM 06/03/24 06/03/24 History 1,000 mcg tablet ondansetron HCl 8 mg tablet 8 mg PO Q8 PRN Nausea 06/03/24 06/03/24 History hydrocodone 5 mg-acetaminophen 325 1 tab PO Q8H PRN pain #10 tabs 06/04/24 Rx mg tablet levofloxacin 500 mg tablet 500 mg PO DAILY 14 days #14 tabs 06/04/24 Rx ondansetron HCl 4 mg tablet 4 mg PO Q8H PRN nausea and 06/04/24 Rx vomiting #20 tabs Hospital Stay Data Consultations 06/03/24 00:30 ED Decision to Admit Stat 06/04/24 12:08 Burn CD for patient Routine Diagnostic Imagining Performed 06/02/24 23:07 CT soft tissue neck w con Stat Pending Results Patient Have Any Pending Studies at Discharge: No Discharge Instructions Given to Patient (Per Discharging Provider) please notify your ENT provider that you are currently on a course of antibiotics so they are aware before you travel for your appointment next week please continue your probiotics while you are on the antibiotics Please follow up with your primary care after your ENT appointment next week Total Time Total Time Spent Total Time Spent (In Minutes): discharge took greater than 30 minutes to prepare Coding Level of Care Code 49496 INP/OBS DISCH >30 MIN Diagnoses Bacterial infection due to Pseudomonas A49.8 Acute effusion of right ear H65.191 Immunodeficiency disorder, common variable D83.9 HTN (hypertension) I10 Pancreatic cancer C25.9 Diabetes mellitus E11.9
== END 2024-06-04 16:24 | disposition home or self-care (01) ==
LOC: ED 18:13 → 2W 18:13 → SUATTDRO 06-03 01:22 → 2W 06-03 03:06